=== PATIENT | male | born 1940 | race Caucasian/White ===

== ENCOUNTER → 2016-08-29 | Outpatient (CLI) | payer MEDICARE ==
[2016-08-29 08:15] LABS: ABSOLUTE EOSINOPHILS # (AUTO) 0.2 10^3/uL (0.0-0.6); ABSOLUTE LYMPHOCYTES (AUTO) 1.1 10^3/uL (0.5-4.7); ABSOLUTE MONOCYTES (AUTO) 0.5 10^3/uL (0.1-1.4); BASOPHILS % (AUTO) 0.5 % (0-2); EOSINOPHILS % (AUTO) 2.8 % (0-6); HEMATOCRIT 41.5 % (37.9-51.0); HEMOGLOBIN 14.1 g/dL (13.5-17.0); HGB HCT DIFFERENCE 0.8; LYMPHOCYTES % (AUTO) 16.3 % (13-45); MEAN CORPUSCULAR HEMOGLOBIN 31.8 pg (27.0-33.4); MEAN CORPUSCULAR VOLUME 94 fl (80-97); MONOCYTES % (AUTO) 7.6 % (3-13); RED BLOOD COUNT 4.43 10^6/uL (4.35-5.55); RED CELL DISTRIBUTION WIDTH 12.9 % (11.5-14.0); SEGMENTED NEUTROPHILS % (AUTO) 72.8 % (42-78); WHITE BLOOD COUNT 6.9 10^3/uL (4.0-10.5)
[2016-08-29 08:37] LABS: ALANINE AMINOTRANSFERASE 35 U/L (21-72); ALKALINE PHOSPHATASE 59 U/L (38-126); ANION GAP 8 (5-19); ASPARTATE AMINO TRANSFERASE 23 U/L (17-59); BILIRUBIN,DIRECT 0.2 mg/dL (0.0-0.4); BILIRUBIN,TOTAL 0.6 mg/dL (0.2-1.3); BLOOD UREA NITROGEN 22 mg/dL (7-20); CALCIUM 9.5 mg/dL (8.4-10.2); CARBON DIOXIDE 29 mmol/L (22-30); CHLORIDE 104 mmol/L (98-107); CHOLESTEROL 135.72 mg/dL (0-200); CREATININE RESULT 1.27 mg/dL (0.52-1.25); Direct HDL 29 mg/dL (>40); GLUCOSE 98 mg/dL (75-110); MAGNESIUM 2.1 mg/dL (1.6-2.3); POTASSIUM 4.8 mmol/L (3.6-5.0); SODIUM 141.1 mmol/L (137-145); TOTAL PROTEIN 6.4 g/dL (6.3-8.2); TRIGLYCERIDES 115 mg/dL (<150)
[2016-08-29 08:48] LABS: DIRECT LDL 83 mg/dL (<100)
== END ==
LOC: OD 07:05
PROVIDERS: ATTEND Family Medicine Geriatric Medicine
DX: E78.5 Hyperlipidemia, unspecified (principal); I10 Essential (primary) hypertension; I25.10 Atherosclerotic heart disease of native coronary artery without angina pectoris; E03.9 Hypothyroidism, unspecified; Z79.899 Other long term (current) drug therapy
CPT/HCPCS: 36415; 80053; 80061; 83735; 84153; 84443; 85025

== ENCOUNTER → 2016-12-31 | Outpatient (CLI) | payer MEDICARE ==
[2016-12-31 08:44] LABS: ABSOLUTE EOSINOPHILS # (AUTO) 0.2 10^3/uL (0.0-0.6); ABSOLUTE LYMPHOCYTES (AUTO) 1.3 10^3/uL (0.5-4.7); ABSOLUTE MONOCYTES (AUTO) 0.5 10^3/uL (0.1-1.4); BASOPHILS % (AUTO) 0.5 % (0-2); EOSINOPHILS % (AUTO) 3.2 % (0-6); HEMATOCRIT 41.3 % (37.9-51.0); HGB HCT DIFFERENCE 0.7; LYMPHOCYTES % (AUTO) 21.4 % (13-45); MEAN CORPUSCULAR HEMOGLOBIN 32.3 pg (27.0-33.4); MEAN CORPUSCULAR VOLUME 95 fl (80-97); RED BLOOD COUNT 4.35 10^6/uL (4.35-5.55); RED CELL DISTRIBUTION WIDTH 12.8 % (11.5-14.0); SEGMENTED NEUTROPHILS % (AUTO) 66.9 % (42-78)
== END ==
LOC: OD 07:23
PROVIDERS: ATTEND Family Medicine Geriatric Medicine
DX: D69.6 Thrombocytopenia, unspecified (principal); Z79.899 Other long term (current) drug therapy
CPT/HCPCS: 36415; 85025

== ENCOUNTER → 2017-04-24 | Outpatient (CLI) | payer MEDICARE ==
[2017-04-24 08:23] LABS: ABSOLUTE EOSINOPHILS # (AUTO) 0.2 10^3/uL (0.0-0.6); ABSOLUTE LYMPHOCYTES (AUTO) 1.3 10^3/uL (0.5-4.7); ABSOLUTE MONOCYTES (AUTO) 0.6 10^3/uL (0.1-1.4); ABSOLUTE NEUT (AUTO) 4.6 10^3/uL (1.7-8.2); BASOPHILS % (AUTO) 0.6 % (0-2); EOSINOPHILS % (AUTO) 2.7 % (0-6); HEMATOCRIT 42.6 % (37.9-51.0); HEMOGLOBIN 14.6 g/dL (13.5-17.0); LYMPHOCYTES % (AUTO) 19.7 % (13-45); MEAN CORPUSCULAR HEMOGLOBIN 31.9 pg (27.0-33.4); MEAN CORPUSCULAR HGB CONC 34.3 g/dL (32.0-36.0); MEAN CORPUSCULAR VOLUME 93 fl (80-97); MONOCYTES % (AUTO) 8.3 % (3-13); PLATELET COUNT 147 10^3/uL (150-450); RED BLOOD COUNT 4.58 10^6/uL (4.35-5.55); RED CELL DISTRIBUTION WIDTH 13.1 % (11.5-14.0); SEGMENTED NEUTROPHILS % (AUTO) 68.7 % (42-78); TOTAL CELLS COUNTED % (AUTO) 100 %; WHITE BLOOD COUNT 6.7 10^3/uL (4.0-10.5)
[2017-04-24 08:44] LABS: ALANINE AMINOTRANSFERASE 40 U/L (21-72); ALBUMIN 4.4 g/dL (3.5-5.0); ALKALINE PHOSPHATASE 60 U/L (38-126); ANION GAP 11 (5-19); ASPARTATE AMINO TRANSFERASE 26 U/L (17-59); BILIRUBIN,DIRECT 0.2 mg/dL (0.0-0.4); BILIRUBIN,TOTAL 0.6 mg/dL (0.2-1.3); BLOOD UREA NITROGEN 27 mg/dL (7-20); CALCIUM 10.1 mg/dL (8.4-10.2); CARBON DIOXIDE 29 mmol/L (22-30); CHLORIDE 103 mmol/L (98-107); CHOLESTEROL 155.91 mg/dL (0-200); GLUCOSE 98 mg/dL (75-110); MAGNESIUM 2.1 mg/dL (1.6-2.3); POTASSIUM 4.6 mmol/L (3.6-5.0); SODIUM 142.6 mmol/L (137-145); TRIGLYCERIDES 106 mg/dL (<150)
[2017-04-24 08:55] LABS: DIRECT LDL 105 mg/dL (<100)
== END ==
LOC: OD 07:39
PROVIDERS: ATTEND Family Medicine Geriatric Medicine
DX: E03.9 Hypothyroidism, unspecified (principal); E78.5 Hyperlipidemia, unspecified; Z79.899 Other long term (current) drug therapy
CPT/HCPCS: 36415; 80053; 80061; 83735; 84443; 85025

== ENCOUNTER → 2017-05-16 | Outpatient (CLI) | payer MEDICARE ==
--- NOTE | 2017-05-16 14:10 | RADIOLOGY REPORT (SQ) ---
EXAM DESCRIPTION: CHEST PA/LATERAL COMPLETED DATE/TIME: 05/16/2017 12:06 pm REASON FOR STUDY: COUGH COMPARISON: None. EXAM PARAMETERS: NUMBER OF VIEWS: two views TECHNIQUE: Digital Frontal and Lateral radiographic views of the chest acquired. RADIATION DOSE: NA LIMITATIONS: none FINDINGS: LUNGS AND PLEURA: No opacities, masses or pneumothorax. No pleural effusion. MEDIASTINUM AND HILAR STRUCTURES: No masses or contour abnormalities. HEART AND VASCULAR STRUCTURES: Heart normal size. No evidence for failure. BONES: No acute findings. HARDWARE: Sternotomy wires. Coronary bypass markers. OTHER: No other significant finding. IMPRESSION: NO SIGNIFICANT RADIOGRAPHIC FINDING IN THE CHEST. TECHNICAL DOCUMENTATION: JOB ID: [id number] [employer]- All Rights Reserved
== END ==
LOC: OD 11:47
PROVIDERS: ATTEND Family Medicine Geriatric Medicine
DX: R05 Cough (principal)
CPT/HCPCS: 71046

== ENCOUNTER → 2017-08-23 | Outpatient (CLI) | payer MEDICARE ==
[2017-08-23 09:02] LABS: ABSOLUTE EOSINOPHILS # (AUTO) 0.2 10^3/uL (0.0-0.6); ABSOLUTE LYMPHOCYTES (AUTO) 1.2 10^3/uL (0.5-4.7); ABSOLUTE MONOCYTES (AUTO) 0.5 10^3/uL (0.1-1.4); ABSOLUTE NEUT (AUTO) 3.6 10^3/uL (1.7-8.2); BASOPHILS % (AUTO) 0.6 % (0-2); EOSINOPHILS % (AUTO) 3.2 % (0-6); HEMATOCRIT 40.1 % (37.9-51.0); HEMOGLOBIN 13.8 g/dL (13.5-17.0); LYMPHOCYTES % (AUTO) 21.6 % (13-45); MEAN CORPUSCULAR HGB CONC 34.5 g/dL (32.0-36.0); MEAN CORPUSCULAR VOLUME 93 fl (80-97); MONOCYTES % (AUTO) 8.8 % (3-13); PLATELET COUNT 137 10^3/uL (150-450); RED BLOOD COUNT 4.33 10^6/uL (4.35-5.55); RED CELL DISTRIBUTION WIDTH 13.2 % (11.5-14.0); SEGMENTED NEUTROPHILS % (AUTO) 65.8 % (42-78); TOTAL CELLS COUNTED % (AUTO) 100 %; WHITE BLOOD COUNT 5.5 10^3/uL (4.0-10.5)
[2017-08-23 09:23] LABS: ALANINE AMINOTRANSFERASE 39 U/L (21-72); ASPARTATE AMINO TRANSFERASE 27 U/L (17-59); CHOLESTEROL 120.03 mg/dL (0-200); TRIGLYCERIDES 98 mg/dL (<150)
[2017-08-23 09:34] LABS: DIRECT LDL 78 mg/dL (<100)
== END ==
LOC: OD 07:30
PROVIDERS: ATTEND Family Medicine Geriatric Medicine
DX: I12.9 Hypertensive chronic kidney disease with stage 1 through stage 4 chronic kidney disease, or unspecified chronic kidney disease (principal); N18.3 Chronic kidney disease, stage 3 (moderate); E78.5 Hyperlipidemia, unspecified; Z79.899 Other long term (current) drug therapy
CPT/HCPCS: 36415; 80061; 82306; 84450; 84460; 85025

== ENCOUNTER → 2017-09-10 | Outpatient (CLI) | payer MEDICARE ==
--- NOTE | 2017-09-10 11:09 | RADIOLOGY REPORT (SQ) ---
EXAM DESCRIPTION: C SP 4 OR 5 VIEWS COMPLETED DATE/TIME: 09/10/2017 10:17 am REASON FOR STUDY: CERVICALGIA M54.2 CERVICALGIA COMPARISON: None. NUMBER OF VIEWS: Five views including obliques. TECHNIQUE: AP, lateral, obliques and odontoid radiographic images acquired of the cervical spine. LIMITATIONS: None. FINDINGS: MINERALIZATION: Normal. SEGMENTATION: Normal. ALIGNMENT: Normal. VERTEBRAE: Maintained height. No fracture or worrisome bone lesion. DISCS: Multilevel disc space narrowing with osteophytes. POSTERIOR ELEMENTS: Pedicles and facets are intact. No posterior arch defects. Facet arthropathy is present. FORAMINA: C5-6 and C6-7 foraminal encroachment on the left. C3-4 through C6-7 right foraminal encroa chment. HARDWARE: None in the spine. PARASPINAL SOFT TISSUES: Normal. OTHER: No other significant finding. IMPRESSION: SPONDYLOSIS WITHOUT BONE LESION OR FRACTURE. TECHNICAL DOCUMENTATION: JOB ID: [id number] [employer]- All Rights Reserved Reading location - IP/workstation name: [email or web address]
== END ==
LOC: OD 09:12
PROVIDERS: ATTEND Family Medicine
DX: M54.2 Cervicalgia (principal)
CPT/HCPCS: 72050

== ENCOUNTER 2017-09-25 08:44 | Day surgery (SDC) | payer MEDICARE ==
[~2017-09-25 08:44] MED LIST: DIPHENHYDRAMINE HCL 50 MG/ML VIAL ONE; EPINEPHRINE INJ 1 MG/10 ML DISP.SYRIN ONE; FENTANYL CITRATE INJ/PF 100 MCG/2 ML AMPUL ONE; FLUMAZENIL INJ 0.5 MG/5 ML VIAL ONE; GLUCAGON,HUMAN RECOMB 1 MG INJ ONE; NALOXONE HCL INJ/PF 0.4 MG/1 ML SDV ONE; ONDANSETRON HCL INJ/PF 4 MG/2 ML SDV ONE
[2017-09-25] MEDS: MIDAZOLAM 2 MG/2 ML INJ ONE ×3 (09:24→09:30)
--- NOTE | 2017-09-25 09:46 | Operative Report ---
Operative Report DATE OF SURGERY: 09/25/17 Operative Report: The risks, benefits and alternatives of the procedure including risks of bleeding, perforation requiring surgery are explained to the patient in detail and informed consent was obtained. Patient was taken back to the endoscopy suite and placed in the left, lateral decubital position. Timeout was called. Conscious sedation medications are provided. A rectal examination is done which did not reveal any masses, tears or fissures. An Olympus videoscope was inserted into the patient's rectum. It is carefully advanced all the way to the cecum. The cecum was identified by the usual anatomical landmarks including the ileocecal valve as well as the appendiceal office. Photodocumentation is obtained. The scope was then sequentially pulled back via the various segments of the colon including the ascending colon, hepatic flexure, transverse colon, splenic flexure, descending colon and finally to the rectosigmoid portions of the colon. Retroflexion maneuvers performed. PREOPERATIVE DIAGNOSIS: Personal history of polyps POSTOPERATIVE DIAGNOSIS: Diverticulosis. Internal hemorrhoids. Inflammation noted on the right side of the colon status post biopsy OPERATION: Colonoscopy with biopsy SURGEON: RONIT RODRIGUES ANESTHESIA: Moderate Sedation - 4 mg of Versed, 25 mcg of fentanyl. Conscious sedation monitoring time 30 minutes. TISSUE REMOVED OR ALTERED: As noted above COMPLICATIONS: None. ESTIMATED BLOOD LOSS: None. INTRAOPERATIVE FINDINGS: As noted above. PROCEDURE: Patient tolerated the procedure well. No immediate postprocedure complications are noted. Patient discharged in good condition. Discharge date 09/25/2017. Discharge diet: Regular. Discharge activity: Regular. 2-3 week follow-up to discuss findings. We will wait on pathology. 5 year surveillance colonoscopy.
[2017-09-25 11:04] VITALS: BP 113/63
== END 2017-09-25 10:45 | disposition home or self-care (01) ==
LOC: END 08:44
PROVIDERS: ATTEND Internal Medicine Gastroenterology
DX: Z12.11 Encounter for screening for malignant neoplasm of colon (principal); K57.30 Diverticulosis of large intestine without perforation or abscess without bleeding; K64.8 Other hemorrhoids; K52.9 Noninfective gastroenteritis and colitis, unspecified; E78.5 Hyperlipidemia, unspecified; I25.10 Atherosclerotic heart disease of native coronary artery without angina pectoris; E03.9 Hypothyroidism, unspecified; I12.9 Hypertensive chronic kidney disease with stage 1 through stage 4 chronic kidney disease, or unspecified chronic kidney disease; N18.3 Chronic kidney disease, stage 3 (moderate); M19.90 Unspecified osteoarthritis, unspecified site; Z79.82 Long term (current) use of aspirin; Z79.899 Other long term (current) drug therapy; Z88.0 Allergy status to penicillin; Z88.8 Allergy status to other drugs, medicaments and biological substances; Z86.010 Personal history of colon polyps
CPT/HCPCS: 45380; 88305 ×2; J2250; J3010; J0171; J1200; J1610; J2310; J2405; J3490

== ENCOUNTER → 2017-11-18 | Outpatient (CLI) | payer MEDICARE ==
[2017-11-18 08:50] LABS: ANION GAP 10 (5-19); BLOOD UREA NITROGEN 27 mg/dL (7-20); CALCIUM 9.1 mg/dL (8.4-10.2); CARBON DIOXIDE 26 mmol/L (22-30); CHLORIDE 107 mmol/L (98-107); GLUCOSE 94 mg/dL (75-110); POTASSIUM 4.3 mmol/L (3.6-5.0); SODIUM 143.4 mmol/L (137-145)
== END ==
LOC: OD 07:21
PROVIDERS: ATTEND Family Medicine Geriatric Medicine
DX: E03.9 Hypothyroidism, unspecified (principal)
CPT/HCPCS: 36415; 80048; 83735; 84443

== ENCOUNTER → 2018-03-26 | Outpatient (CLI) | payer MEDICARE ==
[2018-03-26 08:50] LABS: ABSOLUTE BASOPHILS # (AUTO) 0.1 10^3/uL (0.0-0.2); ABSOLUTE EOSINOPHILS # (AUTO) 0.2 10^3/uL (0.0-0.6); ABSOLUTE LYMPHOCYTES (AUTO) 1.3 10^3/uL (0.5-4.7); ABSOLUTE MONOCYTES (AUTO) 0.7 10^3/uL (0.1-1.4); ABSOLUTE NEUT (AUTO) 4.5 10^3/uL (1.7-8.2); BASOPHILS % (AUTO) 0.8 % (0-2); EOSINOPHILS % (AUTO) 2.9 % (0-6); HEMATOCRIT 40.4 % (37.9-51.0); HEMOGLOBIN 14.4 g/dL (13.5-17.0); LYMPHOCYTES % (AUTO) 18.9 % (13-45); MEAN CORPUSCULAR HEMOGLOBIN 33.3 pg (27.0-33.4); MEAN CORPUSCULAR HGB CONC 35.6 g/dL (32.0-36.0); MEAN CORPUSCULAR VOLUME 93 fl (80-97); PLATELET COUNT 156 10^3/uL (150-450); RED BLOOD COUNT 4.33 10^6/uL (4.35-5.55); SEGMENTED NEUTROPHILS % (AUTO) 67.4 % (42-78); TOTAL CELLS COUNTED % (AUTO) 100 %; WHITE BLOOD COUNT 6.6 10^3/uL (4.0-10.5)
[2018-03-26 09:16] LABS: ALANINE AMINOTRANSFERASE 33 U/L (21-72); ANION GAP 11 (5-19); BLOOD UREA NITROGEN 26 mg/dL (7-20); CALCIUM 9.3 mg/dL (8.4-10.2); CARBON DIOXIDE 29 mmol/L (22-30); CHLORIDE 104 mmol/L (98-107); CHOLESTEROL 115.53 mg/dL (0-200); GLUCOSE 102 mg/dL (75-110); POTASSIUM 4.5 mmol/L (3.6-5.0); SODIUM 143.9 mmol/L (137-145); TRIGLYCERIDES 226 mg/dL (<150)
[2018-03-26 09:17] LABS: ALANINE AMINOTRANSFERASE 34 U/L (21-72); ALBUMIN 3.9 g/dL (3.5-5.0); ALKALINE PHOSPHATASE 82 U/L (38-126); ASPARTATE AMINO TRANSFERASE 30 U/L (17-59); BILIRUBIN,DIRECT 0.3 mg/dL (0.0-0.4); BILIRUBIN,TOTAL 0.6 mg/dL (0.2-1.3); TOTAL PROTEIN 6.6 g/dL (6.3-8.2)
[2018-03-26 09:31] LABS: DIRECT LDL 83 mg/dL (<100)
[2018-03-26 09:33] LABS: VLDL CHOLESTEROL 45.2 mg/dL (10-31)
== END ==
LOC: OD 07:06
PROVIDERS: ATTEND Family Medicine Geriatric Medicine
DX: E78.5 Hyperlipidemia, unspecified (principal); E03.9 Hypothyroidism, unspecified; Z79.899 Other long term (current) drug therapy
CPT/HCPCS: 36415; 80048; 80061; 80076; 82306; 84443; 84460; 85025

== ENCOUNTER → 2018-06-12 | Outpatient (CLI) | payer MEDICARE ==
[2018-06-12 08:29] LABS: ABSOLUTE EOSINOPHILS # (AUTO) 0.2 10^3/uL (0.0-0.6); ABSOLUTE LYMPHOCYTES (AUTO) 1.3 10^3/uL (0.5-4.7); ABSOLUTE MONOCYTES (AUTO) 0.5 10^3/uL (0.1-1.4); ABSOLUTE NEUT (AUTO) 3.6 10^3/uL (1.7-8.2); BASOPHILS % (AUTO) 0.6 % (0-2); EOSINOPHILS % (AUTO) 3.7 % (0-6); HEMATOCRIT 41.6 % (37.9-51.0); HEMOGLOBIN 14.3 g/dL (13.5-17.0); MEAN CORPUSCULAR HEMOGLOBIN 31.8 pg (27.0-33.4); MEAN CORPUSCULAR HGB CONC 34.3 g/dL (32.0-36.0); MEAN CORPUSCULAR VOLUME 93 fl (80-97); MONOCYTES % (AUTO) 8.9 % (3-13); PLATELET COUNT 139 10^3/uL (150-450); RED BLOOD COUNT 4.49 10^6/uL (4.35-5.55); RED CELL DISTRIBUTION WIDTH 13.2 % (11.5-14.0); SEGMENTED NEUTROPHILS % (AUTO) 63.8 % (42-78); TOTAL CELLS COUNTED % (AUTO) 100 %; WHITE BLOOD COUNT 5.7 10^3/uL (4.0-10.5)
[2018-06-12 08:55] LABS: ALANINE AMINOTRANSFERASE 33 U/L (21-72); CHOLESTEROL 118.83 mg/dL (0-200); TRIGLYCERIDES 144 mg/dL (<150)
[2018-06-12 09:12] LABS: DIRECT LDL 76 mg/dL (<100)
== END ==
LOC: OD 07:48
PROVIDERS: ATTEND Family Medicine Geriatric Medicine
DX: E78.5 Hyperlipidemia, unspecified (principal); I10 Essential (primary) hypertension; Z79.899 Other long term (current) drug therapy
CPT/HCPCS: 36415; 80061; 84460; 85025

== ENCOUNTER → 2018-09-17 | Outpatient (CLI) | payer MEDICARE ==
[2018-09-17 08:11] LABS: ABSOLUTE EOSINOPHILS # (AUTO) 0.2 10^3/uL (0.0-0.6); ABSOLUTE LYMPHOCYTES (AUTO) 1.3 10^3/uL (0.5-4.7); ABSOLUTE MONOCYTES (AUTO) 0.5 10^3/uL (0.1-1.4); ABSOLUTE NEUT (AUTO) 4.2 10^3/uL (1.7-8.2); BASOPHILS % (AUTO) 0.5 % (0-2); EOSINOPHILS % (AUTO) 3.5 % (0-6); HEMATOCRIT 40.3 % (37.9-51.0); HEMOGLOBIN 13.7 g/dL (13.5-17.0); LYMPHOCYTES % (AUTO) 20.3 % (13-45); MEAN CORPUSCULAR HEMOGLOBIN 31.5 pg (27.0-33.4); MEAN CORPUSCULAR VOLUME 93 fl (80-97); PLATELET COUNT 144 10^3/uL (150-450); RED BLOOD COUNT 4.36 10^6/uL (4.35-5.55); RED CELL DISTRIBUTION WIDTH 13.3 % (11.5-14.0); SEGMENTED NEUTROPHILS % (AUTO) 67.7 % (42-78); TOTAL CELLS COUNTED % (AUTO) 100 %; WHITE BLOOD COUNT 6.2 10^3/uL (4.0-10.5)
[2018-09-17 08:28] LABS: ANION GAP 10 (5-19); BLOOD UREA NITROGEN 24 mg/dL (7-20); CALCIUM 9.5 mg/dL (8.4-10.2); CARBON DIOXIDE 25 mmol/L (22-30); CHLORIDE 107 mmol/L (98-107); GLUCOSE 106 mg/dL (75-110); POTASSIUM 4.4 mmol/L (3.6-5.0); SODIUM 141.9 mmol/L (137-145)
== END ==
LOC: OD 07:15
PROVIDERS: ATTEND Family Medicine Geriatric Medicine
DX: I12.9 Hypertensive chronic kidney disease with stage 1 through stage 4 chronic kidney disease, or unspecified chronic kidney disease (principal); N18.3 Chronic kidney disease, stage 3 (moderate); I25.10 Atherosclerotic heart disease of native coronary artery without angina pectoris; E78.5 Hyperlipidemia, unspecified; E03.9 Hypothyroidism, unspecified; K63.5 Polyp of colon; D69.6 Thrombocytopenia, unspecified; J30.9 Allergic rhinitis, unspecified; Z29.9 Encounter for prophylactic measures, unspecified
CPT/HCPCS: 36415; 80048; 84443; 85025

== ENCOUNTER 2018-10-17 09:36 | Inpatient (IN) | payer MEDICARE ==
[2018-10-17] MEDS ORDERED: NORMAL SALINE 1000 ML 1,000 ML IV ONE (09:46)
[2018-10-17] MEDS ORDERED: ONDANSETRON HCL INJ/PF 4 MG/2 ML SDV IV ONE (09:47)
--- NOTE | 2018-10-17 09:50 | ER Document Report ---
ED Medical Screen (RME) - General Chief Complaint: Loose Stools Stated Complaint: LOOSE STOOL Time Seen by Provider: 10/17/18 09:46 Primary Care Provider: MIKAELA ARRIOLA MD [Primary Care Provider] - Follow up as needed Mode of Arrival: Wheelchair Information source: Office Notes: 78-year-old male presented to ED for left lower quadrant abdominal pain nausea vomiting and rectal bleeding. was concerned that the patient may have diverticulitis. She recommended labs IVs and CAT scan to rule out diverticulitis. These have been ordered. I have greeted and performed a rapid initial assessment of this patient. A comprehensive ED assessment and evaluation of the patient, analysis of test results and completion of medical decision making process will be conducted by an additional ED providers. Dictation of this chart was performed using voice recognition software; therefore, there may be some unintended grammatical errors. TRAVEL OUTSIDE OF THE [place] IN LAST 30 DAYS: No - Related Data Allergies/Adverse Reactions: Penicillins Allergy (Intermediate, Verified 10/17/18 09:38) Edema aspirin [Aspirin] Adverse Reaction (Mild, Verified 10/17/18 09:38) "UPSET STOMACH" WITH NONENTERIC COATED Past Medical History - Past Medical History Cardiac Medical History: Reports: Hx Coronary Artery Disease - HIGH CHOL, Hx Heart Attack - [place] 25Years Ago, Hx Hypertension Pulmonary Medical History: Denies: Hx Asthma, Hx Bronchitis, Hx COPD, Hx Pneumonia Neurological Medical History: Denies: Hx Cerebrovascular Accident, Hx Seizures Musculoskeltal Medical History: Reports Hx Arthritis Past Surgical History: Denies: Hx Pacemaker - Immunizations Hx Diphtheria, Pertussis, Tetanus Vaccination: Yes Physical Exam - Vital signs Vitals: Temp Pulse Resp BP Pulse Ox 98.0 F 71 16 149/68 H 98 10/17/18 09:44 10/17/18 09:44 10/17/18 09:44 10/17/18 09:44 10/17/18 09:44 Course - Vital Signs Vital signs: Temp Pulse Resp BP Pulse Ox 98.0 F 71 16 149/68 H 98 10/17/18 09:44 10/17/18 09:44 10/17/18 09:44 10/17/18 09:44 10/17/18 09:44 Doctor's Discharge - Discharge Referrals: MIKAELA ARRIOLA MD [Primary Care Provider] - Follow up as needed
[2018-10-17 10:29] LABS: ABSOLUTE MONOCYTES (AUTO) 0.8 10^3/uL (0.1-1.4); ABSOLUTE NEUT (AUTO) 10.3 10^3/uL (1.7-8.2); BASOPHILS % (AUTO) 0.2 % (0-2); EOSINOPHILS % (AUTO) 0.4 % (0-6); HEMATOCRIT 41.2 % (37.9-51.0); HEMOGLOBIN 14.2 g/dL (13.5-17.0); LYMPHOCYTES % (AUTO) 8.1 % (13-45); MEAN CORPUSCULAR HEMOGLOBIN 31.6 pg (27.0-33.4); MEAN CORPUSCULAR HGB CONC 34.5 g/dL (32.0-36.0); MEAN CORPUSCULAR VOLUME 92 fl (80-97); MONOCYTES % (AUTO) 6.4 % (3-13); PLATELET COUNT 141 10^3/uL (150-450); RED CELL DISTRIBUTION WIDTH 13.2 % (11.5-14.0); SEGMENTED NEUTROPHILS % (AUTO) 84.9 % (42-78); TOTAL CELLS COUNTED % (AUTO) 100 %; WHITE BLOOD COUNT 12.1 10^3/uL (4.0-10.5)
[2018-10-17 10:43] LABS: ALANINE AMINOTRANSFERASE 30 U/L (21-72); ALBUMIN 4.2 g/dL (3.5-5.0); ALKALINE PHOSPHATASE 95 U/L (38-126); ANION GAP 9 (5-19); ASPARTATE AMINO TRANSFERASE 21 U/L (17-59); BILIRUBIN,DIRECT 0.2 mg/dL (0.0-0.4); BILIRUBIN,TOTAL 1.3 mg/dL (0.2-1.3); BLOOD UREA NITROGEN 23 mg/dL (7-20); CALCIUM 9.6 mg/dL (8.4-10.2); CARBON DIOXIDE 25 mmol/L (22-30); CHLORIDE 103 mmol/L (98-107); GLUCOSE 118 mg/dL (75-110); POTASSIUM 4.2 mmol/L (3.6-5.0); SODIUM 137.3 mmol/L (137-145)
[2018-10-17 11:04] LABS: APPEARANCE,URINE CLEAR; BILIRUBIN,URINE NEGATIVE (NEGATIVE); COLOR,URINE YELLOW; GLUCOSE, URINE NEGATIVE (NEGATIVE); KETONES,URINE NEGATIVE (NEGATIVE); LEUKOCYTE ESTERASE,URINE NEGATIVE (NEGATIVE); NITRITE,URINE NEGATIVE (NEGATIVE); PROTEIN,URINE NEGATIVE (NEGATIVE); UROBILINOGEN,URINE NEGATIVE mg/dL (<2.0)
--- NOTE | 2018-10-17 11:18 | ER Document Report ---
ED GI/ - General Chief Complaint: Loose Stools Stated Complaint: LOOSE STOOL Time Seen by Provider: 10/17/18 09:46 Primary Care Provider: MIKAELA ARRIOLA MD [Primary Care Provider] - Follow up as needed Mode of Arrival: Wheelchair TRAVEL OUTSIDE OF THE [place] IN LAST 30 DAYS: No - HPI Patient complains to provider of: Abdominal pain, Diarrhea - Pt. with 2-3 day h/o L-sided abd pain and diarrhea. He has had some occasional blood mixed in with the diarrhea. Sarah Beth Singh V. Saw his PCP today and was told to go to ED to r/o diverticulitis. - Related Data Allergies/Adverse Reactions: Penicillins Allergy (Intermediate, Verified 10/17/18 09:38) Edema aspirin [Aspirin] Adverse Reaction (Mild, Verified 10/17/18 09:38) "UPSET STOMACH" WITH NONENTERIC COATED Past Medical History - General Information source: Patient, Relative, DrJudi Office - Social History Smoking Status: Never Smoker Chew tobacco use (# tins/day): No Frequency of alcohol use: None Drug Abuse: None Family History: None Patient has suicidal ideation: No Patient has homicidal ideation: No - Past Medical History Cardiac Medical History: Reports: Hx Coronary Artery Disease - HIGH CHOL, Hx Heart Attack - [place] 25Years Ago, Hx Hypertension Pulmonary Medical History: Denies: Hx Asthma, Hx Bronchitis, Hx COPD, Hx Pneumonia Neurological Medical History: Denies: Hx Cerebrovascular Accident, Hx Seizures Renal/ Medical History: Denies: Hx Peritoneal Dialysis Musculoskeletal Medical History: Reports Hx Arthritis Past Surgical History: Reports: Hx Cardiac Catheterization, Hx Cardiac Surgery. Denies: Hx Pacemaker - Immunizations Hx Diphtheria, Pertussis, Tetanus Vaccination: Yes Review of Systems - Review of Systems Constitutional: No symptoms reported EENT: No symptoms reported Cardiovascular: No symptoms reported Respiratory: No symptoms reported Gastrointestinal: See HPI, Abdominal pain, Diarrhea, Rectal bleeding Genitourinary: No symptoms reported Musculoskeletal: No symptoms reported Skin: No symptoms reported Hematologic/Lymphatic: No symptoms reported Neurological/Psychological: No symptoms reported -: Yes All other systems reviewed and negative Physical Exam - Vital signs Vitals: Temp Pulse Resp BP Pulse Ox 98.0 F 71 16 149/68 H 98 10/17/18 09:44 10/17/18 09:44 10/17/18 09:44 10/17/18 09:44 10/17/18 09:44 - General General appearance: Appears well In distress: None - HEENT Mucous membranes: Normal Pharynx: Normal Neck: Normal - Respiratory Respiratory status: No respiratory distress Breath sounds: Normal - Cardiovascular Rhythm: Regular Heart sounds: Normal auscultation - Abdominal Inspection: Normal Distension: No distension Bowel sounds: Normal Tenderness: Tender - there is minimal TTP of the LLQ diffusely without peritoneal signs. BS normal - Rectal Tenderness: No Stool: Heme positive. No: Black, Bloody Hemorrhoids: External - Extremities General upper extremity: Normal inspection General lower extremity: Normal inspection Course - Re-evaluation Re-evalutation: 10/17/18 13:54 pt felt better after pain meds. He is will to stay in the hospital. I will call hospitalist for admission. - Vital Signs Vital signs: Temp Pulse Resp BP Pulse Ox 98.0 F 71 10 L 150/80 H 98 10/17/18 09:44 10/17/18 09:44 10/17/18 12:01 10/17/18 12:01 10/17/18 12:01 - Laboratory Result Diagrams: 10/17/18 10:09 10/17/18 10:09 Laboratory results interpreted by me: 10/17/18 10/17/18 10:09 10:09 WBC 12.1 H Plt Count 141 L Seg Neutrophils % 84.9 H Lymphocytes % 8.1 L Absolute Neutrophils 10.3 H BUN 23 H Est GFR (Non-Af Amer) 56 L Glucose 118 H - Diagnostic Test Radiology reviewed: Reports reviewed - diverticulosis/diverticulitis and solid kidney mass - possible malignancy - Consults ludwig Ballesteros Time consulted: 13:56 - he will see pt. in ED Reason for consultation: 10/17/18 13:56 admission for diverticulitis Consulted provider: will come to ER Critical Care Note - Critical Care Note Total time excluding time spent on procedures (mins): 30 Discharge - Discharge Clinical Impression: Diverticulitis, Kidney mass Condition: Stable Disposition: ADMITTED OBSERVATION Admitting Provider: Favian (Hospitalist) Unit Admitted: Medical Floor Referrals: MIKAELA ARRIOLA MD [Primary Care Provider] - Follow up as needed
[2018-10-17] MEDS ORDERED: MORPHINE SULFATE 10 MG/ML INJ IV ONE (11:44)
--- NOTE | 2018-10-17 13:20 | RADIOLOGY REPORT (SQ) ---
EXAM DESCRIPTION: CT ABD/PELVIS WITH IV ORAL COMPLETED DATE/TIME: 10/17/2018 12:58 pm REASON FOR STUDY: Lower left abdominal pain nausea vomiting chills COMPARISON: 04/21/2014. TECHNIQUE: CT scan of the abdomen and pelvis performed using helical scanning technique with dynamic intravenous contrast injection. No oral contrast. Images reviewed with lung, soft tissue, and bone windows. Reconstructed coronal and sagittal MPR images reviewed. Delayed images for evaluation of the urinary system also acquired. All images stored on PACS. All CT scanners at this facility use dose modulation, iterative reconstruction, and/or weight based d osing when appropriate to reduce radiation dose to as low as reasonably achievable (ALARA). [facility]: Dose Right [facility]: CareDose [facility]: Dose Right [facility]: Teradose 4D [facility]: MicroEnsure CONTRAST TYPE AND DOSE: contrast/concentration: Isovue 350.00 mg/ml; Total Contrast Delivered: 93.0 ml; Total Saline Delivered: 71.0 ml RENAL FUNCTION: BUN 23 creatinine 1.25. RADIATION DOSE: CT Rad equipment meets quality standard of care and radiation dose reduction techniq ues were employed. CTDIvol: 7.8 - 10.9 mGy. DLP: 982 mGy-cm.. LIMITATIONS: None. FINDINGS: LOWER CHEST: No significant findings. No nodules or infiltrates. LIVER: Normal size. No masses. No dilated ducts. SPLEEN: Normal size. No focal lesions. PANCREAS: No masses. No significant calcifications. No adjacent inflammation or peripancreatic fluid collections. Pancreatic duct not dilated. GALLBLADDER: No identified stones by CT criteria. No inflammatory changes to suggest cholecystitis. ADRENAL GLANDS: No significant masses or asymmetry. RIGHT KIDNEY AND URETER: No solid masses. No significant calcifications. No hydronephrosis or hyd roureter. LEFT KIDNEY AND URETER: Small cortical cysts. 2.0 x 2.5 cm solid mass in the upper pole with periphe ral enhancement. Best visualized on axial series 3, image 32 and coronal series 601, image 45. No significant calcifications. No hydronephrosis or hydroureter. AORTA AND VESSELS: No aneurysm. No dissection. Renal arteries, SMA, celiac without stenosis. RETROPERITONEUM: No retroperitoneal adenopathy, hemorrhage or masses. BOWEL AND PERITONEAL CAVITY: Numerous colonic diverticuli. Mild inflammatory changes along the desce nding colon. No abnormal fluid collection or extraluminal gas. No free fluid or peritoneal masses. APPENDIX: Normal. PELVIS: No mass. No free fluid. Normal bladder. ABDOMINAL WALL: No masses. No hernias. BONES: No significant or acute findings. OTHER: No other significant finding. IMPRESSION: 1. EXTENSIVE DIVERTICULOSIS OF THE DESCENDING AND SIGMOID COLON. MILD INFLAMMATORY CHANGES ALONG THE DESCENDING COLON CONSISTENT WITH DIVERTICULITIS. NO EVIDENCE OF PERFORATION OR ABSCESS. 2. 2.0 X 2.5 CM SOLID MASS IN THE UPPER POLE OF THE LEFT KIDNEY HIGHLY SUSPICIOUS FOR MALIGNANCY. 3. NO OTHER SIGNIFICANT OR ACUTE FINDING IN THE ABDOMEN OR PELVIS ON CT SCAN WITH IV CONTRAST. TECHNICAL DOCUMENTATION: JOB ID: [id number] Quality ID # [id number]: Final reports with documentation of one or more dose reduction techniques (e.g., Au tomated exposure control, adjustment of the mA and/or kV according to patient size, use of iterative reconstruction technique) 2010 [employer]- All Rights Reserved Reading location - IP/workstation name: [email or web address]
[2018-10-17] MEDS ORDERED: TEMAZEPAM 7.5 MG CAPSULE PO PRN (14:35)
[2018-10-17] MEDS ORDERED: PROMETHAZINE HCL INJ 25 MG/1 ML VIAL IV PRN (14:35)
[2018-10-17] MEDS ORDERED: ACETAMINOPHEN 325 MG TABLET PO PRN (14:35)
[2018-10-17] MEDS ORDERED: ONDANSETRON HCL INJ/PF 4 MG/2 ML SDV IV PRN (14:35)
[2018-10-17] MEDS ORDERED: OXYCODONE-ACETAMINOPHEN 5-325 MG TABLET PO PRN (14:35)
[2018-10-17] MEDS ORDERED: IPRATROPIUM/ALBUTEROL 0.5-2.5 MG/3 ML AMPUL NEB PRN (14:35)
[2018-10-17] MEDS: LEVOFLOXACIN 500 MG/D5W RTU 500 MG/100 ML RTUPB IV SCH (15:23)
[2018-10-17] MEDS: NORMAL SALINE 1000 ML 1,000 ML IV PRN (16:14)
[2018-10-17] MEDS: METRONIDAZOLE 500 MG/NS RTU 500 MG/100 ML RTUPB IV SCH ×2 (16:59→17:06)
[2018-10-17] MEDS: PANTOPRAZOLE SODIUM 40 MG TABLET.DR PO SCH (17:06)
--- NOTE | 2018-10-17 18:01 | PDOC H&P ---
History of Present Illness Admission Date/PCP: 10/17/18 14:23 MIKAELA ARRIOLA MD History of Present Illness: SHERI ROSS is a 78 year old male past medical history of hypertension CAD s tatus post CABG, dyslipidemia, external hemorrhoids, tenting to ED complaining of left lower quadrant abdominal pain x4 days treated with diarrhea. Abdominal pain is in the left lower quadrant, colicky, 3/5 intensity, worse with eating, relieved with BMs. Denies any fever, chills, chest pain, weight changes, hematuria, or any urinary symptoms. CT abdomen and ED showed extensive diverticulosis of the descending and sigmoid colon. Mild inflammatory changes along the descending colon consistent with diverticulitis. Past Medical History Cardiac Medical History: Reports: Coronary Artery Disease - HIGH CHOL, Myocardial Infarction - [place] 25Years Ago, Hypertension Pulmonary Medical History: Denies: Asthma, Bronchitis, Chronic Obstructive Pulmonary Disease (COPD), Pneumonia Neurological Medical History: Denies: Seizures Musculoskeltal Medical History: Reports: Arthritis Hematology: Denies: Anemia Past Surgical History Past Surgical History: Reports: Cardiac Catheterization Denies: Pacemaker Social History Smoking Status: Never Smoker Frequency of Alcohol Use: None Hx Recreational Drug Use: No Drugs: None Hx Prescription Drug Abuse: No Family History Family History: None Parental Family History Reviewed: Yes Children Family History Reviewed: Yes Sibling(s) Family History Reviewed.: Yes Medication/Allergy Home Medications: Atorvastatin Calcium [Lipitor 40 mg Tablet] 40 mg PO QHS 10/17/18 Levothyroxine Sodium 75 mcg PO Q6AM 10/17/18 Lisinopril 20 mg PO DAILY 10/17/18 Ranitidine HCl [Zantac] 300 mg PO DAILY 10/17/18 Tamsulosin HCl [Flomax] 0.8 mg PO QHS 10/17/18 Allergies/Adverse Reactions: Penicillins Allergy (Intermediate, Verified 10/17/18 09:38) Edema aspirin [Aspirin] Adverse Reaction (Mild, Verified 10/17/18 09:38) "UPSET STOMACH" WITH NONENTERIC COATED Review of Systems Constitutional: ABSENT: chills, fever(s), headache(s), weight gain, weight loss Cardiovascular: ABSENT: chest pain, dyspnea on exertion, edema, orthropnea, palpitations Respiratory: ABSENT: cough, hemoptysis Gastrointestinal: PRESENT: abdominal pain, diarrhea, nausea Genitourinary: ABSENT: dysuria, hematuria Musculoskeletal: ABSENT: joint swelling Neurological: ABSENT: abnormal gait, abnormal speech, confusion, dizziness, focal weakness, syncope Physical Exam Vital Signs: Temp Pulse Resp BP Pulse Ox 97.6 F 55 L 16 134/71 H 99 10/17/18 16:42 10/17/18 16:42 10/17/18 16:42 10/17/18 16:42 10/17/18 16:42 Intake & Output 10/16/18 10/17/18 10/18/18 06:59 06:59 06:59 Intake Total 1143 Balance 1143 Weight 80.739 kg General appearance: PRESENT: no acute distress, well-developed, well-nourished Head exam: PRESENT: atraumatic, normocephalic Respiratory exam: PRESENT: clear to auscultation autumn. ABSENT: rales, rhonchi, wheezes Cardiovascular exam: PRESENT: RRR. ABSENT: diastolic murmur, rubs, systolic murmur GI/Abdominal exam: PRESENT: guarding, normal bowel sounds, tenderness - LLQ. ABSENT: distended, mass, organolmegaly, rebound Neurological exam: PRESENT: alert, awake, oriented to person, oriented to place, oriented to time, oriented to situation, CN II-XII grossly intact. ABSENT: motor sensory deficit Results Laboratory Results: 10/17/18 10:09 10/17/18 10:09 10/17/18 10/17/18 10/17/18 10:09 10:09 10:09 WBC 12.1 H RBC 4.50 Hgb 14.2 Hct 41.2 MCV 92 MCH 31.6 MCHC 34.5 RDW 13.2 Plt Count 141 L Seg Neutrophils % 84.9 H Lymphocytes % 8.1 L Monocytes % 6.4 Eosinophils % 0.4 Basophils % 0.2 Absolute Neutrophils 10.3 H Absolute Lymphocytes 1.0 Absolute Monocytes 0.8 Absolute Eosinophils 0.0 Absolute Basophils 0.0 Sodium 137.3 Potassium 4.2 Chloride 103 Carbon Dioxide 25 Anion Gap 9 BUN 23 H Creatinine 1.25 Est GFR ( Amer) > 60 Est GFR (Non-Af Amer) 56 L Glucose 118 H Calcium 9.6 Total Bilirubin 1.3 AST 21 ALT 30 Alkaline Phosphatase 95 Total Protein 7.0 Albumin 4.2 Urine Color Urine Appearance Urine pH Ur Specific Crawford Urine Protein Urine Glucose (UA) Urine Ketones Urine Blood Urine Nitrite Ur Leukocyte Esterase Urine WBC (Auto) Urine RBC (Auto) Blood Type A NEGATIVE Antibody Screen NEGATIVE 10/17/18 10:40 WBC RBC Hgb Hct MCV MCH MCHC RDW Plt Count Seg Neutrophils % Lymphocytes % Monocytes % Eosinophils % Basophils % Absolute Neutrophils Absolute Lymphocytes Absolute Monocytes Absolute Eosinophils Absolute Basophils Sodium Potassium Chloride Carbon Dioxide Anion Gap BUN Creatinine Est GFR ( Amer) Est GFR (Non-Af Amer) Glucose Calcium Total Bilirubin AST ALT Alkaline Phosphatase Total Protein Albumin Urine Color YELLOW Urine Appearance CLEAR Urine pH 5.0 Ur Specific Crawford 1.020 Urine Protein NEGATIVE Urine Glucose (UA) NEGATIVE Urine Ketones NEGATIVE Urine Blood NEGATIVE Urine Nitrite NEGATIVE Ur Leukocyte Esterase NEGATIVE Urine WBC (Auto) 1 Urine RBC (Auto) 1 Blood Type Antibody Screen Impressions: Abdomen/Pelvis CT 10/17/18 00:00 IMPRESSION: 1. EXTENSIVE DIVERTICULOSIS OF THE DESCENDING AND SIGMOID COLON. MILD INFLAMMATORY CHANGES ALONG THE DESCENDING COLON CONSISTENT WITH DIVERTICULITIS. NO EVIDENCE OF PERFORATION OR ABSCESS. 2. 2.0 X 2.5 CM SOLID MASS IN THE UPPER POLE OF THE LEFT KIDNEY HIGHLY SUSPICIOUS FOR MALIGNANCY. 3. NO OTHER SIGNIFICANT OR ACUTE FINDING IN THE ABDOMEN OR PELVIS ON CT SCAN WITH IV CONTRAST. Assessment and Plan - Diagnosis (1) Acute diverticulitis Is this a current diagnosis for this admission?: Yes Plan: Empiric IV antibiotics, volume resuscitation guided by volume status, monitor electrolytes and replace as needed. Blood, stool culture. 10/17/2018 CT abdomen. Extensive diverticulosis of the descending and sigmoid colon. Mild inflammatory changes along the descending colon consistent with diverticu litis. (2) Hypertension Is this a current diagnosis for this admission?: Yes Plan: Euvolemic. Normotensive. Restart home meds. PRN hydralazine. Adjust meds as needed. Outpatient PCP follow-up. (3) Dyslipidemia Is this a current diagnosis for this admission?: Yes Plan: Diet and lifestyle modification. Restart statins. (4) CAD (coronary artery disease) Qualifiers: Coronary Disease-Associated Artery/Lesion type: bypass graft, autologous artery Is this a current diagnosis for this admission?: Yes Plan: History of CABG. Denies any anginal symptoms. Continue antiplatelets, beta-blockers, MARK ANTHONY, statins. (5) Kidney mass Is this a current diagnosis for this admission?: Yes Plan: Incidental finding. Denies any history of malignancy. Denies any weight changes or hematuria. 10/17/2018. 2.2 x 2.5 cm solid mass in the upper pole of the left kidney highly suspicious for malignancy. Unfortunately no urology consult available at [facility]. Arrange for patient to see urologist as outpatient upon discharge. (6) External hemorrhoids Is this a current diagnosis for this admission?: Yes Plan: Worsened by recent diarrhea caused by acute diverticulitis. Outpatient surgery follow-up. Monitor H&H. Supportive measures. (7) BPH (benign prostatic hyperplasia) Qualifiers: Lower urinary tract symptom presence: symptoms absent Qualified Code(s): N40.0 - Benign prostatic hyperplasia without lower urinary tract symptoms Is this a current diagnosis for this admission?: Yes Plan: Restart tamsulosin. (8) Hypothyroidism Is this a current diagnosis for this admission?: Yes Plan: Restart levothyroxine.
[2018-10-17] MEDS: LISINOPRIL 10 MG TABLET PO SCH (19:43)
[2018-10-17] MEDS: ATORVASTATIN CALCIUM 40 MG TABLET PO SCH (22:08)
[2018-10-17] MEDS: TAMSULOSIN HCL 0.4 MG CAP.SR.24H PO SCH (22:08)
[2018-10-18] MEDS: METRONIDAZOLE 500 MG/NS RTU 500 MG/100 ML RTUPB IV SCH ×5 (00:09→23:02)
[2018-10-18] MEDS: LEVOTHYROXINE SODIUM 0.075 MG TABLET PO SCH (05:12)
[2018-10-18] MEDS: PANTOPRAZOLE SODIUM 40 MG TABLET.DR PO SCH ×2 (05:12→18:25)
[2018-10-18 05:57] LABS: HEMOGLOBIN 13.1 g/dL (13.5-17.0); MEAN CORPUSCULAR HEMOGLOBIN 31.7 pg (27.0-33.4); MEAN CORPUSCULAR HGB CONC 34.6 g/dL (32.0-36.0); MEAN CORPUSCULAR VOLUME 92 fl (80-97); PLATELET COUNT 127 10^3/uL (150-450); RED BLOOD COUNT 4.15 10^6/uL (4.35-5.55)
[2018-10-18 06:13] LABS: ANION GAP 5 (5-19); BLOOD UREA NITROGEN 20 mg/dL (7-20); CALCIUM 8.7 mg/dL (8.4-10.2); CARBON DIOXIDE 24 mmol/L (22-30); CHLORIDE 107 mmol/L (98-107); GLUCOSE 98 mg/dL (75-110); POTASSIUM 4.2 mmol/L (3.6-5.0); SODIUM 136.1 mmol/L (137-145)
[2018-10-18] MEDS ORDERED: (PENDING PHARMACY ID) (Lisinopril [Lisinopril] 20 MG) PO SCH (10:00)
[2018-10-18] MEDS ORDERED: ENOXAPARIN SODIUM INJ 40 MG/0.4 ML DISP.SYRIN SUBCUT SCH (10:00)
[2018-10-18] MEDS: LEVOFLOXACIN 500 MG/D5W RTU 500 MG/100 ML RTUPB IV SCH (10:16)
[2018-10-18] MEDS: LISINOPRIL 10 MG TABLET PO SCH (10:17)
[2018-10-18] MEDS: NORMAL SALINE 1000 ML 1,000 ML IV PRN (10:17)
--- NOTE | 2018-10-18 14:18 | PDOC PROGRESS REPORT ---
Subjective Progress Note for:: 10/18/18 Subjective:: SHERI ROSS is a 78 year old male past medical history of hypertension CAD status post CABG, dyslipidemia, external hemorrhoids, tenting to ED complaining of left lower quadrant abdominal pain x4 days treated with diarrhea. Abdominal pain is in the left lower quadrant, colicky, 3/5 intensity, worse with eating, relieved with BMs. Denies any fever, chills, chest pain, weight changes, hematuria, or any urinary symptoms. CT abdomen and ED showed extensive diverticulosis of the descending and sigmoid colon. Mild inflammatory changes along the descending colon consistent with diverticulitis. 10/18/2018. No acute events overnight. Patient is endorsing 2 episodes of diarrhea since yesterday, nonbloody, left lower quadrant pain which has improved significantly since yesterday. Denies any fever, chills, nausea, vomiting or any urinary symptoms. Reason For Visit: ACUTE DIVERTICULITIS, MASS LEFT KIDNEY Physical Exam Vital Signs: Temp Pulse Resp BP Pulse Ox 98 F 60 15 114/61 97 10/18/18 11:00 10/18/18 12:38 10/18/18 12:38 10/18/18 11:00 10/18/18 12:38 Intake & Output 10/17/18 10/18/18 10/19/18 06:59 06:59 06:59 Intake Total 2800 Balance 2800 Weight 81.3 kg General appearance: PRESENT: no acute distress, well-developed, well-nourished Head exam: PRESENT: atraumatic, normocephalic Eye exam: PRESENT: conjunctiva pink, EOMI, PERRLA. ABSENT: scleral icterus Ear exam: PRESENT: normal external ear exam Mouth exam: PRESENT: moist, tongue midline Neck exam: ABSENT: carotid bruit, JVD, lymphadenopathy, thyromegaly Respiratory exam: PRESENT: clear to auscultation autumn. ABSENT: rales, rhonchi, wheezes Cardiovascular exam: PRESENT: RRR. ABSENT: diastolic murmur, rubs, systolic murmur Pulses: PRESENT: normal dorsalis pedis pul Vascular exam: PRESENT: normal capillary refill GI/Abdominal exam: PRESENT: guarding, normal bowel sounds, soft, tenderness - LLQ. ABSENT: distended, mass, organolmegaly, rebound Rectal exam: PRESENT: deferred Extremities exam: PRESENT: full ROM. ABSENT: calf tenderness, clubbing, pedal edema Neurological exam: PRESENT: alert, awake, oriented to person, oriented to place, oriented to time, oriented to situation, CN II-XII grossly intact. ABSENT: motor sensory deficit Psychiatric exam: PRESENT: appropriate affect, normal mood. ABSENT: homicidal ideation, suicidal ideation Skin exam: PRESENT: dry, intact, warm. ABSENT: cyanosis, rash Results Laboratory Results: 10/18/18 05:41 10/18/18 05:41 10/18/18 10/18/18 05:41 05:41 WBC 8.0 RBC 4.15 L Hgb 13.1 L Hct 38.0 MCV 92 MCH 31.7 MCHC 34.6 RDW 13.0 Plt Count 127 L Sodium 136.1 L Potassium 4.2 Chloride 107 Carbon Dioxide 24 Anion Gap 5 BUN 20 Creatinine 1.21 Est GFR ( Amer) > 60 Est GFR (Non-Af Amer) 58 L Glucose 98 Calcium 8.7 Impressions: Abdomen/Pelvis CT 10/17/18 00:00 IMPRESSION: 1. EXTENSIVE DIVERTICULOSIS OF THE DESCENDING AND SIGMOID COLON. MILD INFLAMMATORY CHANGES ALONG THE DESCENDING COLON CONSISTENT WITH DIVERTICULITIS. NO EVIDENCE OF PERFORATION OR ABSCESS. 2. 2.0 X 2.5 CM SOLID MASS IN THE UPPER POLE OF THE LEFT KIDNEY HIGHLY SUSPICIOUS FOR MALIGNANCY. 3. NO OTHER SIGNIFICANT OR ACUTE FINDING IN THE ABDOMEN OR PELVIS ON CT SCAN WITH IV CONTRAST. Assessment and Plan - Diagnosis (1) Acute diverticulitis Is this a current diagnosis for this admission?: Yes Plan: Abdominal pain improving. Day 2 IV antibiotics. Day 2 IV levofloxacin. 2 IV metronidazole. Cultures no growth so far. Continue empiric IV antibiotics, volume resuscitation guided by volume status, monitor electrolytes and replace as needed. Blood, stool culture. 10/17/2018 CT abdomen. Extensive diverticulosis of the descending and sigmoid colon. Mild inflammatory changes along the descending colon consistent with div erticulitis. (2) Hypertension Is this a current diagnosis for this admission?: Yes Plan: Euvolemic. Normotensive. Restart home meds. PRN hydralazine. Adjust meds as needed. Outpatient PCP follow-up. (3) Dyslipidemia Is this a current diagnosis for this admission?: Yes Plan: Diet and lifestyle modification. Restart statins. (4) CAD (coronary artery disease) Qualifiers: Coronary Disease-Associated Artery/Lesion type: bypass graft, autologous artery Is this a current diagnosis for this admission?: Yes Plan: History of CABG. Denies any anginal symptoms. Continue antiplatelets, beta-blockers, MARK ANTHONY, statins. (5) Kidney mass Is this a current diagnosis for this admission?: Yes Plan: Incidental finding. Denies any history of malignancy. Denies any weight changes or hematuria. 10/17/2018. 2.2 x 2.5 cm solid mass in the upper pole of the left kidney highly suspicious for malignancy. Unfortunately no urology consult available at [facility]. Arrange for patient to see urologist as outpatient upon discharge. (6) External hemorrhoids Is this a current diagnosis for this admission?: Yes Plan: Worsened by recent diarrhea caused by acute diverticulitis. Outpatient surgery follow-up. Monitor H&H. Supportive measures. (7) BPH (benign prostatic hyperplasia) Qualifiers: Lower urinary tract symptom presence: symptoms absent Qualified Code(s): N40.0 - Benign prostatic hyperplasia without lower urinary tract symptoms Is this a current diagnosis for this admission?: Yes Plan: Restart tamsulosin. (8) Hypothyroidism Is this a current diagnosis for this admission?: Yes Plan: Restart levothyroxine.
[2018-10-18] MEDS: ATORVASTATIN CALCIUM 40 MG TABLET PO SCH (21:29)
[2018-10-18] MEDS: TAMSULOSIN HCL 0.4 MG CAP.SR.24H PO SCH (21:29)
[2018-10-19 05:01] LABS: ABSOLUTE EOSINOPHILS # (AUTO) 0.2 10^3/uL (0.0-0.6); ABSOLUTE LYMPHOCYTES (AUTO) 1.5 10^3/uL (0.5-4.7); ABSOLUTE MONOCYTES (AUTO) 0.6 10^3/uL (0.1-1.4); ABSOLUTE NEUT (AUTO) 5.8 10^3/uL (1.7-8.2); BASOPHILS % (AUTO) 0.5 % (0-2); EOSINOPHILS % (AUTO) 2.7 % (0-6); HEMATOCRIT 36.9 % (37.9-51.0); HEMOGLOBIN 12.7 g/dL (13.5-17.0); MEAN CORPUSCULAR HEMOGLOBIN 31.7 pg (27.0-33.4); MEAN CORPUSCULAR HGB CONC 34.5 g/dL (32.0-36.0); MEAN CORPUSCULAR VOLUME 92 fl (80-97); MONOCYTES % (AUTO) 7.4 % (3-13); PLATELET COUNT 122 10^3/uL (150-450); RED BLOOD COUNT 4.01 10^6/uL (4.35-5.55); RED CELL DISTRIBUTION WIDTH 13.2 % (11.5-14.0); SEGMENTED NEUTROPHILS % (AUTO) 71.4 % (42-78); TOTAL CELLS COUNTED % (AUTO) 100 %; WHITE BLOOD COUNT 8.1 10^3/uL (4.0-10.5)
[2018-10-19 05:20] LABS: ANION GAP 6 (5-19); BLOOD UREA NITROGEN 21 mg/dL (7-20); CALCIUM 8.7 mg/dL (8.4-10.2); CARBON DIOXIDE 24 mmol/L (22-30); CHLORIDE 108 mmol/L (98-107); GLUCOSE 99 mg/dL (75-110); POTASSIUM 4.1 mmol/L (3.6-5.0); SODIUM 137.9 mmol/L (137-145)
[2018-10-19] MEDS: METRONIDAZOLE 500 MG/NS RTU 500 MG/100 ML RTUPB IV SCH (05:44)
[2018-10-19] MEDS: PANTOPRAZOLE SODIUM 40 MG TABLET.DR PO SCH (05:45)
[2018-10-19] MEDS: LEVOTHYROXINE SODIUM 0.075 MG TABLET PO SCH (05:45)
[2018-10-19] MEDS: NORMAL SALINE 1000 ML 1,000 ML IV PRN (05:51)
[2018-10-19 09:00] VITALS: BP 125/70
== END 2018-10-19 09:18 | disposition home or self-care (01) | DRG 392 ==
LOC: ER 09:36 → EH 14:23 → 2S 16:43 → OBSVTOIN 10-18 10:56
PROVIDERS: ADMIT Internal Medicine; ATTEND Internal Medicine
DX: K57.32 Diverticulitis of large intestine without perforation or abscess without bleeding (principal); I10 Essential (primary) hypertension; I25.10 Atherosclerotic heart disease of native coronary artery without angina pectoris; E78.5 Hyperlipidemia, unspecified; N28.89 Other specified disorders of kidney and ureter; K64.4 Residual hemorrhoidal skin tags; N40.0 Benign prostatic hyperplasia without lower urinary tract symptoms; I25.2 Old myocardial infarction; E03.9 Hypothyroidism, unspecified; Z79.899 Other long term (current) drug therapy; Z95.1 Presence of aortocoronary bypass graft; Z88.6 Allergy status to analgesic agent; Z88.0 Allergy status to penicillin
CPT/HCPCS: 36415; 74177; 80048; 80053; 81001; 85025; 85027; 86850; 86900; 86901; 87040; 96361; 96374; 96375; 99291; G0378; J1956; J2270; J2405; J3490; J7030

== ENCOUNTER → 2018-10-27 | Outpatient (CLI) | payer MEDICARE ==
--- NOTE | 2018-10-27 16:53 | RADIOLOGY REPORT (SQ) ---
EXAM DESCRIPTION: RIBS RIGHT W/PA CHEST COMPLETED DATE/TIME: 10/27/2018 2:50 pm REASON FOR STUDY: RIGHT RIB PAIN R07.81 PLEURODYNIA COMPARISON: CT scan 10/17/2018 TECHNIQUE: Frontal view of the chest and additional views of the right ribs acquired. NUMBER OF VIEWS: Five view LIMITATIONS: None. FINDINGS: FRONTAL CXR: No pneumothorax. No pleural effusion. No atelectasis or infiltrates. RIBS: Moth-eaten cortical destruction of the 8th right lateral rib. Suspicious for metastatic diseas e or myeloma. No obvious pathologic fracture. OTHER: No other significant finding. IMPRESSION: Multi cortical destruction of 8 right lateral rib. Suspicious for metastatic disease or multiple myeloma. No pneumothorax. COMMENT: The findings were sent to the Radiology Results Communication Center at 16:46 on 10/27/2018 to be communicated to a licensed caregiver. SITE OF TRAUMA/COMPLAINT MARKED/STAMP COMPLETED: Yes TECHNICAL DOCUMENTATION: JOB ID: [id number] [employer]- All Rights Reserved Reading location - IP/workstation name: [email or web address]
== END ==
LOC: OD 14:37
PROVIDERS: ATTEND Family Medicine Geriatric Medicine
DX: M89.8X8 Other specified disorders of bone, other site (principal); R07.81 Pleurodynia

== ENCOUNTER → 2018-11-03 | Outpatient (CLI) | payer MEDICARE ==
[2018-11-05 15:36] LABS: A/G RATIO 1.3 (0.7-1.7); ALPHA-2-GLOBULIN 2 0.8 g/dL (0.4-1.0); GAMMA GLOBULIN 0.9 g/dL (0.4-1.8); MONOCLONAL SPIKE Not Observed g/dL (Not Observ)
== END ==
LOC: OD 15:33
PROVIDERS: ATTEND Family Medicine Geriatric Medicine
DX: D48.0 Neoplasm of uncertain behavior of bone and articular cartilage (principal); N28.89 Other specified disorders of kidney and ureter
CPT/HCPCS: 36415; 84165

== ENCOUNTER → 2018-12-11 | Outpatient (CLI) | payer MEDICARE ==
[2018-12-11 08:20] LABS: ABSOLUTE EOSINOPHILS # (AUTO) 0.2 10^3/uL (0.0-0.6); ABSOLUTE LYMPHOCYTES (AUTO) 1.2 10^3/uL (0.5-4.7); ABSOLUTE MONOCYTES (AUTO) 1.4 10^3/uL (0.1-1.4); ABSOLUTE NEUT (AUTO) 7.6 10^3/uL (1.7-8.2); BASOPHILS % (AUTO) 0.2 % (0-2); HEMATOCRIT 39.3 % (37.9-51.0); HEMOGLOBIN 13.3 g/dL (13.5-17.0); LYMPHOCYTES % (AUTO) 11.2 % (13-45); MEAN CORPUSCULAR HEMOGLOBIN 31.5 pg (27.0-33.4); MEAN CORPUSCULAR HGB CONC 33.8 g/dL (32.0-36.0); MEAN CORPUSCULAR VOLUME 93 fl (80-97); MONOCYTES % (AUTO) 13.1 % (3-13); PLATELET COUNT 138 10^3/uL (150-450); RED BLOOD COUNT 4.22 10^6/uL (4.35-5.55); SEGMENTED NEUTROPHILS % (AUTO) 73.5 % (42-78); TOTAL CELLS COUNTED % (AUTO) 100 %; WHITE BLOOD COUNT 10.3 10^3/uL (4.0-10.5)
[2018-12-11 08:41] LABS: TRIGLYCERIDES 98 mg/dL (<150)
[2018-12-11 08:51] LABS: DIRECT LDL 74 mg/dL (<100)
== END ==
LOC: OD 07:21
PROVIDERS: ATTEND Family Medicine Geriatric Medicine
DX: D69.6 Thrombocytopenia, unspecified (principal); E78.5 Hyperlipidemia, unspecified; Z79.899 Other long term (current) drug therapy
CPT/HCPCS: 36415; 80061; 84460; 85025

== ENCOUNTER → 2019-01-26 | Outpatient (CLI) | payer MEDICARE ==
--- NOTE | 2019-01-26 15:11 | RADIOLOGY REPORT (SQ) ---
EXAM DESCRIPTION: HIP LEFT AP/LATERAL COMPLETED DATE/TIME: 01/26/2019 2:06 pm REASON FOR STUDY: M25.552 PAIN IN LEFT HIP M25.552 PAIN IN LEFT HIP M54.5 LOW BACK PAIN COMPARISON: None. NUMBER OF VIEWS: Two views. TECHNIQUE: AP pelvis and additional frog-leg view of the left hip. LIMITATIONS: None. FINDINGS: MINERALIZATION: Normal. LEFT HIP: No fracture or dislocation. No worrisome bone lesions. RIGHT HIP: No fracture or dislocation. No worrisome bone lesions. PUBIS AND ISCHIUM: No fracture. PELVIS: No fracture. SACRUM: No fracture or dislocation. No worrisome bone lesions. LOWER LUMBAR SPINE: Lower lumbar degenerative disc disease and spondylosis. SOFT TISSUES: No findings. OTHER: No other significant finding. IMPRESSION: Lower lumbar degenerative changes. Normal hip. TECHNICAL DOCUMENTATION: JOB ID: [id number] [employer]- All Rights Reserved Reading location - IP/workstation name: [email or web address]
--- NOTE | 2019-01-26 15:14 | RADIOLOGY REPORT (SQ) ---
EXAM DESCRIPTION: SACRUM AND COCCYX COMPLETED DATE/TIME: 01/26/2019 2:06 pm REASON FOR STUDY: M54.5 LOW BACK PAIN M25.552 PAIN IN LEFT HIP M54.5 LOW BACK PAIN COMPARISON: None. NUMBER OF VIEWS: Three views. TECHNIQUE: AP, lateral, and tilt views of the sacrum and coccyx. LIMITATIONS: None. FINDINGS: MINERALIZATION: Normal. BONES: No acute fracture or dislocation. No worrisome bone lesions. SOFT TISSUES: No soft tissue swelling. No foreign body. OTHER: No other significant finding. IMPRESSION: NEGATIVE STUDY OF THE SACRUM AND COCCYX. TECHNICAL DOCUMENTATION: JOB ID: [id number] [employer]- All Rights Reserved Reading location - IP/workstation name: [email or web address]
--- NOTE | 2019-01-26 15:20 | RADIOLOGY REPORT (SQ) ---
EXAM DESCRIPTION: L SPINE WHOLE COMPLETED DATE/TIME: 01/26/2019 2:06 pm REASON FOR STUDY: LOW BACK PAIN M25.552 PAIN IN LEFT HIP M54.5 LOW BACK PAIN COMPARISON: None. NUMBER OF VIEWS: Five views including obliques. TECHNIQUE: AP, lateral, oblique, and sacral radiographic images acquired of the lumbar spine. LIMITATIONS: None. FINDINGS: MINERALIZATION: Normal. SEGMENTATION: Normal. No transitional anatomy. ALIGNMENT: Normal. VERTEBRAE: Maintained height. No fracture or worrisome bone lesion. DISCS: There is narrowing of the L4-5 disc space with marginal osteophytes. POSTERIOR ELEMENTS: Pedicles and facets are intact. No pars defect or posterior arch defects. HARDWARE: None in the spine. PARASPINAL SOFT TISSUES: Normal. PELVIS: Intact as visualized. No fractures or worrisome bone lesions. SI joints intact. OTHER: No other significant finding. IMPRESSION: Degenerative disc disease and spondylosis. TECHNICAL DOCUMENTATION: JOB ID: [id number] [employer]- All Rights Reserved Reading location - IP/workstation name: [email or web address]
== END ==
LOC: RAD 13:08
PROVIDERS: ATTEND Family Medicine Geriatric Medicine
DX: M25.552 Pain in left hip (principal); M54.5 Low back pain; M51.36 Other intervertebral disc degeneration, lumbar region; M47.896 Other spondylosis, lumbar region
CPT/HCPCS: 72110; 72220

== ENCOUNTER → 2019-01-30 | Outpatient (CLI) | payer MEDICARE ==
[2019-01-30 08:03] LABS: ABSOLUTE EOSINOPHILS # (AUTO) 0.2 10^3/uL (0.0-0.6); ABSOLUTE LYMPHOCYTES (AUTO) 1.4 10^3/uL (0.5-4.7); ABSOLUTE MONOCYTES (AUTO) 0.5 10^3/uL (0.1-1.4); ABSOLUTE NEUT (AUTO) 4.2 10^3/uL (1.7-8.2); BASOPHILS % (AUTO) 0.7 % (0-2); EOSINOPHILS % (AUTO) 3.6 % (0-6); HEMATOCRIT 40.7 % (37.9-51.0); HEMOGLOBIN 13.8 g/dL (13.5-17.0); LYMPHOCYTES % (AUTO) 21.4 % (13-45); MEAN CORPUSCULAR HEMOGLOBIN 31.4 pg (27.0-33.4); MEAN CORPUSCULAR HGB CONC 33.9 g/dL (32.0-36.0); MEAN CORPUSCULAR VOLUME 93 fl (80-97); MONOCYTES % (AUTO) 7.9 % (3-13); PLATELET COUNT 149 10^3/uL (150-450); RED CELL DISTRIBUTION WIDTH 13.3 % (11.5-14.0); SEGMENTED NEUTROPHILS % (AUTO) 66.4 % (42-78); TOTAL CELLS COUNTED % (AUTO) 100 %; WHITE BLOOD COUNT 6.3 10^3/uL (4.0-10.5)
== END ==
LOC: OD 07:24
PROVIDERS: ATTEND Family Medicine Geriatric Medicine
DX: D69.6 Thrombocytopenia, unspecified (principal); E03.9 Hypothyroidism, unspecified; Z79.899 Other long term (current) drug therapy
CPT/HCPCS: 36415; 84443; 85025

== ENCOUNTER → 2019-03-03 | Outpatient (CLI) | payer MEDICARE | LOC: OD 07:03 | PROVIDERS: ATTEND Family Medicine Geriatric Medicine | DX: E03.9 Hypothyroidism, unspecified (principal); Z79.899 Other long term (current) drug therapy | CPT/HCPCS: 36415; 84443 ==

== ENCOUNTER 2019-05-07 08:22 | Inpatient (IN) | payer MEDICARE ==
[2019-05-07 09:21] LABS: ABSOLUTE EOSINOPHILS # (AUTO) 0.1 10^3/uL (0.0-0.6); ABSOLUTE LYMPHOCYTES (AUTO) 0.4 10^3/uL (0.5-4.7); ABSOLUTE MONOCYTES (AUTO) 0.4 10^3/uL (0.1-1.4); ABSOLUTE NEUT (AUTO) 5.6 10^3/uL (1.7-8.2); BASOPHILS % (AUTO) 0.5 % (0-2); EOSINOPHILS % (AUTO) 1.2 % (0-6); HEMATOCRIT 49.1 % (37.9-51.0); HEMOGLOBIN 17.5 g/dL (13.5-17.0); MEAN CORPUSCULAR HEMOGLOBIN 32.9 pg (27.0-33.4); MEAN CORPUSCULAR HGB CONC 35.6 g/dL (32.0-36.0); MEAN CORPUSCULAR VOLUME 92 fl (80-97); MONOCYTES % (AUTO) 6.2 % (3-13); RED BLOOD COUNT 5.31 10^6/uL (4.35-5.55); RED CELL DISTRIBUTION WIDTH 13.8 % (11.5-14.0); SEGMENTED NEUTROPHILS % (AUTO) 86.1 % (42-78); TOTAL CELLS COUNTED % (AUTO) 100 %; WHITE BLOOD COUNT 6.5 10^3/uL (4.0-10.5)
[2019-05-07 09:33] LABS: ALBUMIN 4.4 g/dL (3.5-5.0); ALKALINE PHOSPHATASE 107 U/L (38-126); ANION GAP 14 (5-19); ASPARTATE AMINO TRANSFERASE 52 U/L (17-59); BILIRUBIN,DIRECT 0.1 mg/dL (0.0-0.4); BILIRUBIN,TOTAL 2.3 mg/dL (0.2-1.3); BLOOD UREA NITROGEN 31 mg/dL (7-20); CARBON DIOXIDE 25 mmol/L (22-30); CHLORIDE 96 mmol/L (98-107); GLUCOSE 159 mg/dL (75-110); POTASSIUM 4.4 mmol/L (3.6-5.0); TOTAL PROTEIN 7.4 g/dL (6.3-8.2)
[2019-05-07] MEDS ORDERED: ONDANSETRON HCL INJ/PF 4 MG/2 ML SDV IV ONE (09:47)
[2019-05-07] MEDS ORDERED: MORPHINE SULFATE 10 MG/ML INJ IV ONE (09:47)
[2019-05-07] MEDS ORDERED: NORMAL SALINE 1000 ML 1,000 ML IV ONE (09:48)
[2019-05-07 09:50] LABS: PLATELET COUNT 61 10^3/uL (150-450)
[2019-05-07 10:18] LABS: APPEARANCE,URINE CLEAR; BILIRUBIN,URINE NEGATIVE (NEGATIVE); GLUCOSE, URINE NEGATIVE (NEGATIVE); KETONES,URINE NEGATIVE (NEGATIVE); LEUKOCYTE ESTERASE,URINE NEGATIVE (NEGATIVE); NITRITE,URINE NEGATIVE (NEGATIVE); PROTEIN,URINE 30 mg/dL (NEGATIVE); URINE SPECIFIC GRAVITY 1.015; UROBILINOGEN,URINE NEGATIVE mg/dL (<2.0)
[2019-05-07] MEDS ORDERED: FAMOTIDINE INJ/PF 20 MG/2 ML SDV IV ONE (10:21)
[2019-05-07 10:23] LABS: COLOR,URINE YELLOW
--- NOTE | 2019-05-07 11:18 | RADIOLOGY REPORT (SQ) ---
EXAM DESCRIPTION: CT ABD/PELVIS NO ORAL OR IV COMPLETED DATE/TIME: 05/07/2019 10:53 am REASON FOR STUDY: lower abdominal pain, eval for diverticulitis COMPARISON: 10/17/2018 TECHNIQUE: CT scan of the abdomen and pelvis performed without intravenous or oral contrast. Images reviewed with lung, soft tissue, and bone windows. Reconstructed coronal and sagittal MPR images revi ewed. All images stored on PACS. All CT scanners at this facility use dose modulation, iterative reconstruction, and/or weight based d osing when appropriate to reduce radiation dose to as low as reasonably achievable (ALARA). [facility]: Dose Right [facility]: CareDose [facility]: Dose Right [facility]: Teradose 4D [facility]: Smart [employer] RADIATION DOSE: CT Rad equipment meets quality standard of care and radiation dose reduction techniq ues were employed. CTDIvol: 10.0 mGy. DLP: 552 mGy-cm.mGy. LIMITATIONS: None. FINDINGS: LOWER CHEST: Small hiatal hernia. NON-CONTRASTED LIVER, SPLEEN, ADRENALS: Evaluation limited by lack of IV contrast. No identified sign ificant masses. PANCREAS: No masses. No peripancreatic inflammatory changes. GALLBLADDER: No identified stones by CT criteria. No inflammatory changes to suggest cholecystitis. RIGHT KIDNEY AND URETER: No suspicious masses. Assessment limited by lack of IV contrast. No signif icant calcifications. No hydronephrosis or hydroureter. LEFT KIDNEY AND URETER: Perinephric stranding upper pole near site of previously described solid mass , presumably related to biopsy or ablation. No significant calcifications. No hydronephrosis or h ydroureter. AORTA AND RETROPERITONEUM: No aneurysm. No retroperitoneal masses or adenopathy. BOWEL AND PERITONEAL CAVITY: Mild inflammatory changes associated with distal descending colon and pr oximal sigmoid colon. Extensive diverticulosis. APPENDIX: Normal. PELVIS, BLADDER, AND ABDOMINAL WALL:No abnormal masses. No free fluid. Bladder normal. BONES: No significant findings. OTHER: No other significant finding. IMPRESSION: Diverticulitis distal descending colon. COMMENT: Quality ID # [id number]: Final reports with documentation of one or more dose reduction techniques (e.g., Automated exposure control, adjustment of the mA and/or kV according to patient size, use of iterative reconstruction technique) TECHNICAL DOCUMENTATION: JOB ID: [id number]- All Rights Reserved Reading location - IP/workstation name: [email or web address]
--- NOTE | 2019-05-07 11:41 | RADIOLOGY REPORT (SQ) ---
EXAM DESCRIPTION: CHEST 2 VIEWS COMPLETED DATE/TIME: 05/07/2019 11:24 am REASON FOR STUDY: shaking chills, chemotherapy patient COMPARISON: 05/16/2017 EXAM PARAMETERS: NUMBER OF VIEWS: two views TECHNIQUE: Digital Frontal and Lateral radiographic views of the chest acquired. RADIATION DOSE: NA LIMITATIONS: none FINDINGS: LUNGS AND PLEURA: No opacities, masses or pneumothorax. No pleural effusion. MEDIASTINUM AND HILAR STRUCTURES: No masses or contour abnormalities. HEART AND VASCULAR STRUCTURES: Heart normal size. No evidence for failure. BONES: No acute findings. HARDWARE: CABG. OTHER: No other significant finding. IMPRESSION: NO ACUTE RADIOGRAPHIC FINDING IN THE CHEST. TECHNICAL DOCUMENTATION: JOB ID: [id number] [employer]- All Rights Reserved Reading location - IP/workstation name: [email or web address]
[2019-05-07] MEDS ORDERED: METRONIDAZOLE 500 MG/NS RTU 500 MG/100 ML RTUPB IV ONE (11:47)
[2019-05-07] MEDS ORDERED: CIPROFLOXACIN 400 MG/D5W RTU 400 MG/200 ML RTUPB IV ONE ×2 (11:47→13:00)
--- NOTE | 2019-05-07 12:11 | ER Document Report ---
ED General - General Chief Complaint: Nausea/Vomiting Stated Complaint: WEAKNESS Time Seen by Provider: 05/07/19 10:04 Primary Care Provider: MIKAELA ARRIOLA MD [Primary Care Provider] - Follow up as needed TRAVEL OUTSIDE OF THE [place] IN LAST 30 DAYS: No - HPI Notes: Patient is an 79-year-old male with a history of renal cancer, on oral chemotherapy, who presents to the emergency department for evaluation of nausea, vomiting, chills, lower abdominal pain. The patient has had intermittent nausea and vomiting for some time, but it seems to been worsening. He is been having some intermittent shaking chills. No ivan fevers to their knowledge. He is had some cramping lower abdominal pain. He admits he has not had a bowel movement in several days, but actually just prior to my arrival had a large bowel movement while here in the emergency department. He states his pain persists. He is still urinating although it is less. According to the daughter his color is not normal either. Otherwise, he is been having some difficulty keeping his medications down. - Related Data Allergies/Adverse Reactions: Penicillins Allergy (Intermediate, Verified 10/17/18 09:38) Edema aspirin [Aspirin] Adverse Reaction (Mild, Verified 10/17/18 09:38) "UPSET STOMACH" WITH NONENTERIC COATED Home Medications: List reviewed, please see note Past Medical History - General Information source: Patient, Relative - Social History Smoking Status: Never Smoker Family History: None, Reviewed & Not Pertinent Patient has suicidal ideation: No Patient has homicidal ideation: No - Past Medical History Cardiac Medical History: Reports: Hx Coronary Artery Disease - HIGH CHOL, Hx Heart Attack - [place] 25Years Ago, Hx Hypercholesterolemia, Hx Hypertension Pulmonary Medical History: Denies: Hx Asthma, Hx Bronchitis, Hx COPD, Hx Pneumonia Neurological Medical History: Denies: Hx Cerebrovascular Accident, Hx Seizures Renal/ Medical History: Denies: Hx Peritoneal Dialysis Malignancy Medical History: Reports Hx Renal (Kidney) Cancer Musculoskeletal Medical History: Reports Hx Arthritis Past Surgical History: Reports: Hx Cardiac Catheterization, Hx Cardiac Surgery, Hx Kidney (Renal Surgery) - biposy, Hx Orthopedic Surgery - biposy. Denies: Hx Pacemaker - Immunizations Hx Diphtheria, Pertussis, Tetanus Vaccination: Yes Review of Systems - Review of Systems Constitutional: See HPI EENT: No symptoms reported Cardiovascular: No symptoms reported Respiratory: No symptoms reported Gastrointestinal: See HPI Genitourinary: No symptoms reported Musculoskeletal: No symptoms reported Skin: See HPI Neurological/Psychological: No symptoms reported Physical Exam - Vital signs Vitals: Temp Resp BP Pulse Ox 98.0 F 21 H 129/86 H 98 05/07/19 08:42 05/07/19 08:42 05/07/19 08:42 05/07/19 08:42 - Notes Notes: Is an 79-year-old male who appears her stated age in no acute distress. Vital signs reviewed, please refer to chart. Head is normocephalic, atraumatic. Pupils equal round, reactive to light. Neck is supple without meningismus. Heart is regular rate and rhythm. Lungs are clear to auscultation bilaterally. Abdomen is soft, mildly tender in the epigastrium, moderately tender in the left lower quadrant without rebound or guarding, normoactive bowel sounds throughout. Extremities without cyanosis, clubbing. Posterior calves are nontender. Peripheral pulses are equal. Skin is warm and dry. Patient is awake, alert, neurological exam is nonfocal. Course - Re-evaluation Re-evalutation: 05/07/19 12:10 Patient presents to the emergency department for evaluation. He had initial laboratory investigations as ordered. I did add additional investigations as I was concerned about the possibility of sepsis in this 79-year-old gentleman, on chemotherapy, with intermittent shaking chills. Because of his abdominal tenderness I did order CT scan of the abdomen pelvis as well. Laboratory investigation showed acute on chronic renal failure, likely secondary to some mild dehydration. CT scan of the abdomen pelvis revealed acute diverticulitis. Patient was given IV Cipro, Flagyl. He was treated symptomatically and was feeling significantly improved. I spoke with Dr. Camacho, he will admit the patient further care. - Vital Signs Vital signs: Temp Pulse Resp BP Pulse Ox 98 F 27 H 111/62 95 05/07/19 09:55 05/07/19 11:30 05/07/19 11:30 05/07/19 11:30 - Laboratory Result Diagrams: 05/07/19 08:57 05/07/19 08:57 Laboratory results interpreted by me: 05/07/19 05/07/19 05/07/19 08:57 08:57 09:31 Hgb 17.5 H Plt Count 61 L Lymph % (Auto) 6.0 L Absolute Lymphs (auto) 0.4 L Seg Neutrophils % 86.1 H Sodium 134.8 L Chloride 96 L BUN 31 H Creatinine 2.04 H Est GFR ( Amer) 38 L Est GFR (MDRD) Non-Af 32 L Glucose 159 H Total Bilirubin 2.3 H Urine Protein 30 H - Diagnostic Test Radiology reviewed: Image reviewed, Reports reviewed Radiology results interpreted by me: 05/07/19 12:11 Abdomen/Pelvis CT 05/07/19 10:20 IMPRESSION: Diverticulitis distal descending colon. Chest X-Ray 05/07/19 10:20 IMPRESSION: NO ACUTE RADIOGRAPHIC FINDING IN THE CHEST. Discharge - Discharge Clinical Impression: Acute diverticulitis Acute renal failure (ARF) Qualifiers: Acute renal failure type: unspecified Qualified Code(s): N17.9 - Acute kidney failure, unspecified Nausea & vomiting Qualifiers: Vomiting type: unspecified Vomiting Intractability: unspecified Qualified Code(s): R11.2 - Nausea with vomiting, unspecified Condition: Stable Disposition: ADMITTED INPATIENT Admitting Provider: Dr. Camacho Unit Admitted: Telemetry Referrals: MIKAELA ARRIOLA MD [Primary Care Provider] - Follow up as needed
[2019-05-07] MEDS ORDERED: MAG HYDROX/AL HYDROX/SIMETH SUSP 30 ML UDCUP PO PRN (12:42)
[2019-05-07] MEDS ORDERED: ZOLPIDEM TARTRATE 5 MG TABLET PO PRN (12:42)
[2019-05-07] MEDS ORDERED: ONDANSETRON HCL INJ/PF 4 MG/2 ML SDV IV PRN (12:42)
[2019-05-07] MEDS ORDERED: ACETAMINOPHEN 325 MG TABLET PO PRN (12:55)
[2019-05-07] MEDS ORDERED: MORPHINE SULFATE 10 MG/ML INJ IV PRN (12:55)
--- NOTE | 2019-05-07 13:27 | PDOC H&P ---
History of Present Illness Admission Date/PCP: 05/07/19 12:30 MIKAELA ARRIOLA MD Patient complains of: Abdominal pain, nausea vomiting History of Present Illness: SHERI ROSS is a 79 year old male with a diverticulitis, 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 Patient has been experiencing nausea since beginning of this month. Symptoms have not progressed in the past 2 to 3 days now associated with multiple episodes of vomiting and difficulty keeping down oral food. Patient has also been experiencing left lower quadrant pain with radiation to lower mid abdomen which he describes as a sharp pain not associated with food intake. Recently, he has been having c onstipation and notes improved abdominal pain when he has a bowel movement. No no other specific aggravating factors. First episode of diverticulitis was last year in October. Denies fever chills. Past Medical History Cardiac Medical History: Reports: Coronary Artery Disease - HIGH CHOL, Myocardial Infarction - [place] 25Years Ago, Hyperlipidema, Hypertension Pulmonary Medical History: Denies: Asthma, Bronchitis, Chronic Obstructive Pulmonary Disease (COPD), Pneumonia Neurological Medical History: Denies: Seizures Malignancy Medical History: Reports: Renal (Kidney) Cancer Musculoskeltal Medical History: Reports: Arthritis Hematology: Reports: Other - Renal cell cancer with metastasis to ribs and left hip Denies: Anemia Past Surgical History Past Surgical History: Reports: Cardiac Catheterization, Orthopedic Surgery - biposy Denies: Pacemaker Social History Information Source: Patient Lives with: Family Smoking Status: Never Smoker Electronic Cigarette use?: No Frequency of Alcohol Use: None Hx Recreational Drug Use: No Drugs: None Hx Prescription Drug Abuse: No - Advance Directive Resuscitation Status: Full Code Family History Family History: Hypertension Parental Family History Reviewed: Yes Children Family History Reviewed: NA Sibling(s) Family History Reviewed.: NA Medication/Allergy Home Medications: Atorvastatin Calcium [Lipitor 40 mg Tablet] 40 mg PO QPM 05/07/19 Calcium Carbonate [Calcium] 500 mg PO DAILY 05/07/19 Ergocalciferol (Vitamin D2) [Vitamin D] 400 unit PO QPM 05/07/19 Levothyroxine Sodium [Synthroid 0.1 mg Tablet] 0.1 mg PO Q6AM 01/16/20 Lisinopril [Prinivil] 20 mg PO DAILY 05/07/19 Multivitamin [Daily Multiple Vitamin] 1 each PO DAILY 05/07/19 Ondansetron [Zofran Odt 4 mg Tablet] 8 mg PO Q8HP PRN 05/07/19 Promethazine HCl [Phenergan 25 mg Tablet] 25 mg PO Q4HP PRN 05/07/19 Ranitidine HCl [Zantac] 300 mg PO QHS 05/07/19 Sunitinib Malate [Sutent] 50 mg PO DAILY 05/07/19 Tamsulosin HCl [Flomax] 0.4 mg PO QPM 05/07/19 Allergies/Adverse Reactions: Penicillins Allergy (Intermediate, Verified 10/17/18 09:38) Edema aspirin [Aspirin] Adverse Reaction (Mild, Verified 10/17/18 09:38) "UPSET STOMACH" WITH NONENTERIC COATED Review of Systems Constitutional: ABSENT: chills, fever(s) Eyes: ABSENT: visual disturbances Nose, Mouth, and Throat: ABSENT: vertigo Cardiovascular: ABSENT: chest pain Respiratory: ABSENT: cough, hemoptysis Gastrointestinal: PRESENT: abdominal pain, nausea, vomiting. ABSENT: hematemesis, hematochezia, melena Genitourinary: ABSENT: difficulty urinating, dysuria Integumentary: ABSENT: diaphoresis Neurological: PRESENT: dizziness. ABSENT: confusion Endocrine: ABSENT: polyuria Physical Exam Vital Signs: Temp Pulse Resp BP Pulse Ox 98 F 10 L 130/60 H 97 05/07/19 09:55 05/07/19 12:31 05/07/19 12:31 05/07/19 12:00 Intake & Output 05/06/19 05/07/19 05/08/19 06:59 06:59 06:59 Intake Total 1000 Balance 1000 Weight 77.8 kg General appearance: PRESENT: no acute distress, cooperative Head exam: PRESENT: atraumatic, normocephalic Neck exam: ABSENT: JVD Respiratory exam: PRESENT: clear to auscultation autumn, symmetrical, unlabored. ABSENT: tachypnea, wheezes Cardiovascular exam: PRESENT: RRR, +S1, +S2. ABSENT: tachycardia Vascular exam: ABSENT: pallor GI/Abdominal exam: PRESENT: normal bowel sounds, soft, tenderness - Mostly in the left lower quadrant. ABSENT: distended, firm, guarding, rebound, rigid Extremities exam: ABSENT: pedal edema Musculoskeletal exam: PRESENT: ambulatory Neurological exam: PRESENT: alert, awake, oriented to person, oriented to place, oriented to time Psychiatric exam: PRESENT: appropriate affect. ABSENT: agitated, anxious Focused psych exam: ABSENT: pressured speech, restlessness Skin exam: ABSENT: jaundice Results Laboratory Results: 05/07/19 08:57 05/07/19 08:57 05/07/19 05/07/19 05/07/19 08:57 08:57 09:31 WBC 6.5 RBC 5.31 Hgb 17.5 H Hct 49.1 MCV 92 MCH 32.9 MCHC 35.6 RDW 13.8 Plt Count 61 L Seg Neutrophils % 86.1 H Sodium 134.8 L Potassium 4.4 Chloride 96 L Carbon Dioxide 25 Anion Gap 14 BUN 31 H Creatinine 2.04 H Est GFR ( Amer) 38 L Glucose 159 H Calcium 10.0 Total Bilirubin 2.3 H AST 52 Alkaline Phosphatase 107 Total Protein 7.4 Albumin 4.4 Lipase 200.8 Urine Color YELLOW Urine Appearance CLEAR Urine pH 6.0 Ur Specific [place] 1.015 Urine Protein 30 H Urine Glucose (UA) NEGATIVE Urine Ketones NEGATIVE Urine Blood NEGATIVE Urine Nitrite NEGATIVE Ur Leukocyte Esterase NEGATIVE Urine WBC (Auto) 1 Urine RBC (Auto) 1 Impressions: Abdomen/Pelvis CT 05/07/19 10:20 IMPRESSION: Diverticulitis distal descending colon. Chest X-Ray 05/07/19 10:20 IMPRESSION: NO ACUTE RADIOGRAPHIC FINDING IN THE CHEST. Assessment and Plan - Diagnosis (1) Acute diverticulitis Is this a current diagnosis for this admission?: Yes Plan: Recurrent episode. CT imaging results reviewed by me showing extensive diverticulosis and diverticulitis involving the sigmoid colon. Empiric antibiotics treatment with ciprofloxacin and Flagyl Antiemetics Start on liquid diet and escalate as tolerated Pain control with Tylenol. Morphine for breakthrough pain. We will hold off on surgical evaluation for recurrent diverticulitis given age and current chemotherapy. Discussed with family and patient. (2) Acute renal failure (ARF) Qualifiers: Acute renal failure type: unspecified Qualified Code(s): N17.9 - Acute kidney failure, unspecified Is this a current diagnosis for this admission?: Yes Plan: Secondary to dehydration from decreased p.o. intake IV fluid hydration and encourage p.o. hydration, nausea control. Monitor BMP (3) Kidney cancer, primary, with metastasis from kidney to other site Qualifiers: Laterality: left Qualified Code(s): C64.2 - Malignant neoplasm of left kidney, except renal pelvis Is this a current diagnosis for this admission?: Yes Plan: Diagnosed in the second half of 2019. Reports metastasis to left hip as well as ribs s/p radiation. Currently on oral chemo daily with Sunitinib. Consult oncology [primary is Dr. Bocanegra] regarding if ok to continue chemo during acute infection. (4) Indirect hyperbilirubinemia Is this a current diagnosis for this admission?: Yes Plan: Hyperbilirubinemia is mild but mostly indirect bilirubin I suspect this may be secondary to increased RBC turnover from polycythemia associated with renal cell cancer. I will simply monitor for now. (5) Chemotherapy-induced thrombocytopenia Is this a current diagnosis for this admission?: Yes Plan: Secondary to sunitinib. Monitor CBC. DC Lovenox prophylaxis if platelet count drops below 50 (6) Hypothyroidism Is this a current diagnosis for this admission?: Yes Plan: Continue Synthroid - Time Time Spent with patient: 35 or more minutes
[2019-05-07] MEDS: METRONIDAZOLE 500 MG TABLET PO SCH ×2 (15:45→21:15)
[2019-05-07] MEDS ORDERED: HYDROCORTISONE ACETATE 25 MG SUPP.RECT PR PRN (16:13)
[2019-05-07] MEDS ORDERED: PROMETHAZINE HCL 25 MG TABLET PO PRN (16:15)
[2019-05-07] MEDS: TAMSULOSIN HCL 0.4 MG CAP.SR.24H PO SCH (17:19)
[2019-05-07] MEDS: DOCUSATE SODIUM 100 MG CAPSULE PO SCH (17:19)
[2019-05-07] MEDS: NORMAL SALINE 1000 ML 1,000 ML IV PRN (18:56)
[2019-05-07] MEDS: CIPROFLOXACIN 400 MG/D5W RTU 400 MG/200 ML RTUPB IV SCH (21:15)
[2019-05-07] MEDS: FAMOTIDINE 20 MG TABLET PO SCH (21:15)
[2019-05-07] MEDS: ATORVASTATIN CALCIUM 40 MG TABLET PO SCH (21:15)
[2019-05-07] MEDS ORDERED: METRONIDAZOLE 500 MG TABLET PO SCH (22:00)
[2019-05-08 05:37] LABS: MEAN CORPUSCULAR HEMOGLOBIN 32.6 pg (27.0-33.4); MEAN CORPUSCULAR HGB CONC 35.3 g/dL (32.0-36.0); MEAN CORPUSCULAR VOLUME 92 fl (80-97); RED BLOOD COUNT 4.45 10^6/uL (4.35-5.55); RED CELL DISTRIBUTION WIDTH 14.4 % (11.5-14.0); WHITE BLOOD COUNT 8.1 10^3/uL (4.0-10.5)
[2019-05-08] MEDS: METRONIDAZOLE 500 MG TABLET PO SCH ×3 (05:47→21:17)
[2019-05-08] MEDS: LEVOTHYROXINE SODIUM 0.1 MG TABLET PO SCH (05:47)
[2019-05-08] MEDS: NORMAL SALINE 1000 ML 1,000 ML IV PRN ×2 (05:48→19:55)
[2019-05-08 05:57] LABS: ALBUMIN 3.1 g/dL (3.5-5.0); ALKALINE PHOSPHATASE 72 U/L (38-126); ANION GAP 10 (5-19); ASPARTATE AMINO TRANSFERASE 45 U/L (17-59); BILIRUBIN,DIRECT 0.2 mg/dL (0.0-0.4); BILIRUBIN,TOTAL 1.9 mg/dL (0.2-1.3); BLOOD UREA NITROGEN 28 mg/dL (7-20); CARBON DIOXIDE 23 mmol/L (22-30); CHLORIDE 99 mmol/L (98-107); GLUCOSE 108 mg/dL (75-110); PLATELET COUNT 46 10^3/uL (150-450); POTASSIUM 4.1 mmol/L (3.6-5.0); TOTAL PROTEIN 5.7 g/dL (6.3-8.2)
[2019-05-08 05:59] LABS: HEMOGLOBIN 14.5 g/dL (13.5-17.0)
[2019-05-08] MEDS ORDERED: CALCIUM CARBONATE 500 MG TABLET PO SCH (08:00)
--- NOTE | 2019-05-08 08:35 | PDOC CONSULTATION ---
Consultation Consult Date: 05/08/19 Provider Consulted: FREDERICK RYAN Consult reason:: Hematology/Oncology consultation was requested for patient on active chemo for carcinoma unknown primary, thought to be kidney primary. 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 Extensive work-up revealed kidney as most likely source. He underwent radiation therapy and was started on Sutent oral chemo a few weeks ago. He states that he initially had constipation, then abdominal pain and vomiting with near syncope. He has not been able to to eat or drink much over the last 3-4 days. Yesterday, in the hospital, he had a very large BM and some blood. CT A/P without contrast showed diverticulitis and patient was started on Flagyl and Cipro. Today, he states that he is feeling better, but still uncomfortable. Only tolerating clear liquids. Past Medical History Cardiac Medical History: Reports: Coronary Artery Disease - HIGH CHOL, Myocardial Infarction - [place] 25Years Ago, Hyperlipidema, Hypertension Pulmonary Medical History: Denies: Asthma, Bronchitis, Chronic Obstructive Pulmonary Disease (COPD), Pneumonia EENT Medical History: Reports: Other - Renal cell cancer with metastasis to ribs and left hip Neurological Medical History: Denies: Seizures Malignancy Medical History: Reports: Renal (Kidney) Cancer - with bone mets. Musculoskeltal Medical History: Reports: Arthritis Hematology: Reports: Other - Thrombocytopenia Denies: Anemia Past Surgical History Past Surgical History: Reports: Cardiac Catheterization, Coronary Artery Bypass Graft - 1993, Orthopedic Surgery - biposy, Other - colonoscopy 2017, hemorrhoidectomy Denies: Pacemaker Social History Occupation: Own [employer] Lives with: Family Smoking Status: Never Smoker Electronic Cigarette use?: No Number of Years Smokin Last Time Smoked: 1962 Frequency of Alcohol Use: None Hx Recreational Drug Use: No Drugs: None Hx Prescription Drug Abuse: No Past Social History Note: with 2 children. - Advance Directive Resuscitation Status: Full Code Family History Family History: Hypertension Parental Family History Reviewed: Yes - Mother kidney disease. Father [place] age 60 Children Family History Reviewed: Yes - Daughter BRCA2 mutation + Sibling(s) Family History Reviewed.: Yes - Sister brain tumor. Brothers with pancreatic anc prostate cancer Medication/Allergy Home Medications: Atorvastatin Calcium [Lipitor 40 mg Tablet] 40 mg PO QPM 05/07/19 Calcium Carbonate [Calcium] 500 mg PO DAILY 05/07/19 Ergocalciferol (Vitamin D2) [Vitamin D] 400 unit PO QPM 05/07/19 Levothyroxine Sodium [Synthroid 0.1 mg Tablet] 0.1 mg PO Q6AM 05/07/19 Lisinopril [Prinivil] 20 mg PO DAILY 05/07/19 Multivitamin [Daily Multiple Vitamin] 1 each PO DAILY 05/07/19 Ondansetron [Zofran Odt 4 mg Tablet] 8 mg PO Q8HP PRN 05/07/19 Promethazine HCl [Phenergan 25 mg Tablet] 25 mg PO Q4HP PRN 05/07/19 Ranitidine HCl [Zantac] 300 mg PO QHS 05/07/19 Sunitinib Malate [Sutent] 50 mg PO DAILY 05/07/19 Tamsulosin HCl [Flomax] 0.4 mg PO QPM 05/07/19 Allergies/Adverse Reactions: Penicillins Allergy (Intermediate, Verified 10/17/18 09:38) Edema aspirin [Aspirin] Adverse Reaction (Mild, Verified 10/17/18 09:38) "UPSET STOMACH" WITH NONENTERIC COATED Review of Systems Constitutional: PRESENT: fever(s), headache(s) Eyes: ABSENT: visual disturbances Ears: ABSENT: hearing changes Nose, Mouth, and Throat: ABSENT: sore throat Cardiovascular: ABSENT: chest pain Respiratory: ABSENT: dyspnea Gastrointestinal: PRESENT: as per HPI Genitourinary: ABSENT: dysuria Musculoskeletal: ABSENT: joint swelling Integumentary: ABSENT: rash Neurological: PRESENT: weakness, other - near syncope Hematologic/Lymphatic: ABSENT: easy bleeding Physical Exam Vital Signs: Temp Pulse Resp BP Pulse Ox 98.1 F 85 16 141/75 H 95 05/07/19 23:05 05/07/19 23:05 05/07/19 23:05 05/07/19 23:05 05/07/19 23:05 Intake & Output 05/07/19 05/08/19 05/09/19 06:59 06:59 06:59 Intake Total 3424 Balance 3424 Weight 80.6 kg General appearance: PRESENT: no acute distress, well-developed, well-nourished Exam: 79 year old male. Head exam: PRESENT: normocephalic Eye exam: PRESENT: EOMI Mouth exam: PRESENT: moist, tongue midline Neck exam: ABSENT: lymphadenopathy, tenderness Respiratory exam: PRESENT: clear to auscultation autumn, unlabored Cardiovascular exam: PRESENT: RRR. ABSENT: systolic murmur GI/Abdominal exam: PRESENT: normal bowel sounds, soft, tenderness Extremities exam: ABSENT: pedal edema Musculoskeletal exam: PRESENT: normal inspection Neurological exam: PRESENT: alert, awake Psychiatric exam: PRESENT: appropriate affect Skin exam: PRESENT: normal color Results Laboratory Results: 05/08/19 05:09 05/08/19 05:09 05/07/19 05/07/19 05/07/19 08:57 08:57 09:31 WBC 6.5 RBC 5.31 Hgb 17.5 H Hct 49.1 MCV 92 MCH 32.9 MCHC 35.6 RDW 13.8 Plt Count 61 L Seg Neutrophils % 86.1 H Sodium 134.8 L Potassium 4.4 Chloride 96 L Carbon Dioxide 25 Anion Gap 14 BUN 31 H Creatinine 2.04 H Est GFR ( Amer) 38 L Glucose 159 H Calcium 10.0 Total Bilirubin 2.3 H AST 52 Alkaline Phosphatase 107 Total Protein 7.4 Albumin 4.4 Lipase 200.8 Urine Color YELLOW Urine Appearance CLEAR Urine pH 6.0 Ur Specific [place] 1.015 Urine Protein 30 H Urine Glucose (UA) NEGATIVE Urine Ketones NEGATIVE Urine Blood NEGATIVE Urine Nitrite NEGATIVE Ur Leukocyte Esterase NEGATIVE Urine WBC (Auto) 1 Urine RBC (Auto) 1 05/08/19 05/08/19 05:09 05:09 WBC 8.1 RBC 4.45 Hgb 14.5 D Hct 41.0 MCV 92 MCH 32.6 MCHC 35.3 RDW 14.4 H Plt Count 46 L Seg Neutrophils % Sodium 131.8 L Potassium 4.1 Chloride 99 Carbon Dioxide 23 Anion Gap 10 BUN 28 H Creatinine 1.56 H Est GFR ( Amer) 52 L Glucose 108 Calcium 8.0 L Total Bilirubin 1.9 H AST 45 Alkaline Phosphatase 72 Total Protein 5.7 L Albumin 3.1 L Lipase Urine Color Urine Appearance Urine pH Ur Specific [place] Urine Protein Urine Glucose (UA) Urine Ketones Urine Blood Urine Nitrite Ur Leukocyte Esterase Urine WBC (Auto) Urine RBC (Auto) Impressions: Abdomen/Pelvis CT 05/07/19 10:20 IMPRESSION: Diverticulitis distal descending colon. Chest X-Ray 05/07/19 10:20 IMPRESSION: NO ACUTE RADIOGRAPHIC FINDING IN THE CHEST. Status: Image reviewed by me Assessment & Plan - Diagnosis (1) Kidney cancer, primary, with metastasis from kidney to other site Qualifiers: Laterality: left Qualified Code(s): C64.2 - Malignant neoplasm of left kidney, except renal pelvis Is this a current diagnosis for this admission?: Yes Plan: HOLD Sutent. Unclear if this contributed to current symptoms or not. (2) Nausea & vomiting Qualifiers: Vomiting type: unspecified Vomiting Intractability: unspecified Qualified Code(s): R11.2 - Nausea with vomiting, unspecified Is this a current diagnosis for this admission?: Yes Plan: Improving. Continue supportive care (3) Diverticulitis Is this a current diagnosis for this admission?: Yes Plan: Continue appropriate antibiotics. There is no evidence of neutropenia. His PLT count was low prior to starting treatment. - Plan Summary Plan Summary: Patient was discussed with Dr. Camacho. I reviewed notes extensively.
[2019-05-08] MEDS ORDERED: ENOXAPARIN SODIUM INJ 40 MG/0.4 ML DISP.SYRIN SUBCUT SCH (10:00)
[2019-05-08] MEDS: DOCUSATE SODIUM 100 MG CAPSULE PO SCH ×2 (10:33→17:44)
[2019-05-08] MEDS: CIPROFLOXACIN 400 MG/D5W RTU 400 MG/200 ML RTUPB IV SCH ×2 (10:38→21:17)
[2019-05-08] MEDS: CHOLECALCIFEROL (D3) 1,000 UNIT (25 MCG) TABLET PO SCH (10:38)
[2019-05-08] MEDS: LISINOPRIL 10 MG TABLET PO SCH (10:38)
[2019-05-08] MEDS: MULTIVITAMIN TABLET PO SCH (10:38)
--- NOTE | 2019-05-08 12:47 | PDOC PROGRESS REPORT ---
Subjective Progress Note for:: 05/08/19 Subjective:: Patient complains of about 2-3 episodes of hematochezia since yesterday. Also complains of some discomfort in his chest and stomach when he eats. Regarding patient's hematochezia he describes first episode is having a significant bowel movement and then having some blood in it. However subsequent episodes were mainly blood with very little stool. Denies any shortness of breath, lightheadedness or dizziness. Denies active chest pain. Reason For Visit: ACUTE DIVERTICULITIS Physical Exam Vital Signs: Temp Pulse Resp BP Pulse Ox 98.9 F 87 16 147/84 H 96 05/08/19 11:18 05/08/19 11:18 05/08/19 11:18 05/08/19 11:18 05/08/19 11:18 Intake & Output 05/07/19 05/08/19 05/09/19 06:59 06:59 06:59 Intake Total 3424 1040 Balance 3424 1040 Weight 80.6 kg General appearance: PRESENT: no acute distress, cooperative Neck exam: ABSENT: JVD Respiratory exam: PRESENT: symmetrical, unlabored. ABSENT: tachypnea, wheezes Cardiovascular exam: PRESENT: RRR, +S1, +S2. ABSENT: tachycardia GI/Abdominal exam: PRESENT: soft, tenderness. ABSENT: distended, firm, guarding, rebound, rigid Neurological exam: PRESENT: alert, awake, oriented to person, oriented to place, oriented to time Results Laboratory Results: 05/08/19 05:09 05/08/19 05:09 05/08/19 05/08/19 05:09 05:09 WBC 8.1 RBC 4.45 Hgb 14.5 D Hct 41.0 MCV 92 MCH 32.6 MCHC 35.3 RDW 14.4 H Plt Count 46 L Sodium 131.8 L Potassium 4.1 Chloride 99 Carbon Dioxide 23 Anion Gap 10 BUN 28 H Creatinine 1.56 H Est GFR ( Amer) 52 L Glucose 108 Calcium 8.0 L Total Bilirubin 1.9 H AST 45 Alkaline Phosphatase 72 Total Protein 5.7 L Albumin 3.1 L Impressions: Abdomen/Pelvis CT 05/07/19 10:20 IMPRESSION: Diverticulitis distal descending colon. Chest X-Ray 05/07/19 10:20 IMPRESSION: NO ACUTE RADIOGRAPHIC FINDING IN THE CHEST. Assessment and Plan - Diagnosis (1) Acute diverticulitis Is this a current diagnosis for this admission?: Yes Plan: Recurrent episode. CT imaging results reviewed by me showing extensive diverticulosis and diverticulitis involving the sigmoid colon. Empiric antibiotics treatment with ciprofloxacin and Flagyl Antiemetics liquid diet and escalate as tolerated Pain control with Tylenol. Morphine for breakthrough pain. (2) Diverticular hemorrhage Is this a current diagnosis for this admission?: Yes Plan: Patient now experiencing hematochezia and his description of mostly blood with very little stool with high suspicion for diverticular bleed likely provoked by acute diverticulitis. If he continues to persist, will have surgery evaluate patient to see if need for endoscopy. Monitor vital signs. Type and screen. (3) Acute renal failure (ARF) Qualifiers: Acute renal failure type: unspecified Qualified Code(s): N17.9 - Acute kidney failure, unspecified Is this a current diagnosis for this admission?: Yes Plan: secondary to dehydration from decreased p.o. intake IV fluid hydration and encourage p.o. hydration, nausea control. Improving with IV fluids. 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 Reports metastasis to left hip as well as ribs s/p radiation. Currently on oral chemo daily with Sunitinib. Consult oncology [primary is Dr. Bocanegra] regarding if ok to continue chemo during acute infection. (5) Indirect hyperbilirubinemia Is this a current diagnosis for this admission?: Yes Plan: Hyperbilirubinemia is mild but mostly indirect bilirubin I suspect this may be secondary to increased RBC turnover from polycythemia associated with renal cell cancer. I will simply monitor for now. (6) Chemotherapy-induced thrombocytopenia Is this a current diagnosis for this admission?: Yes Plan: Secondary to sunitinib. Monitor CBC. DC Lovenox prophylaxis given platelet count below 50. SCDs. (7) Hypothyroidism Is this a current diagnosis for this admission?: Yes Plan: Continue Synthroid - Time Time Spent with patient: 15-24 minutes
--- NOTE | 2019-05-08 13:56 | PDOC CONSULTATION ---
Consultation Consult Date: 05/08/19 Attending physician:: JUAN DIEGO RUSH Provider Consulted: WILLA HOLM Consult reason:: diverticular vs hemorrhoidal bleed. History of Present Illness Admission Date/PCP: 05/07/19 12:30 MIKAELA ARRIOLA MD History of Present Illness: SHERI ROSS is a 79 year old malePatient has also been experiencing left lower quadrant pain with radiation to lower mid abdomen which he describes as a sharp pain not associated with food intake. Recently, he has been having constipation and notes improved abdominal pain when he has a bowel movement. No no other specific aggravating factors. First episode of diverticulitis was last year in October. Denies fever chills. And with being diagnosed with diverticulitis that he had for bloody bowel movements and there was concern for bleeding reticula in addition to the recent diagnosis of diverticulitis. He was consulted for possible bleeding diverticulosis versus hemorrhoidal bleeding. Currently this morning the patient had a large BM with only minimal amount of blood and he just notes a small amount on the tissue paper after he wipes he does not note further clots after bowel movement. Past Medical History Cardiac Medical History: Reports: Coronary Artery Disease - HIGH CHOL, Myocardial Infarction - [place] 25Years Ago, Hyperlipidema, Hypertension Pulmonary Medical History: Denies: Asthma, Bronchitis, Chronic Obstructive Pulmonary Disease (COPD), Pneumonia EENT Medical History: Reports: Other - Thrombocytopenia Neurological Medical History: Denies: Seizures Malignancy Medical History: Reports: Renal (Kidney) Cancer - with bone mets. Musculoskeltal Medical History: Reports: Arthritis Hematology: Reports: Other - Thrombocytopenia Denies: Anemia Past Surgical History Past Surgical History: Reports: Cardiac Catheterization, Coronary Artery Bypass Graft - 1993, Orthopedic Surgery - biposy, Other - colonoscopy 2018, hemorrhoidectomy Denies: Pacemaker Social History Lives with: Family Smoking Status: Never Smoker Electronic Cigarette use?: No Number of Years Smokin Last Time Smoked: 1963 Frequency of Alcohol Use: None Hx Recreational Drug Use: No Drugs: None Hx Prescription Drug Abuse: No - Advance Directive Resuscitation Status: Full Code Family History Family History: Hypertension Parental Family History Reviewed: No Children Family History Reviewed: NA Sibling(s) Family History Reviewed.: NA Medication/Allergy Home Medications: Atorvastatin Calcium [Lipitor 40 mg Tablet] 40 mg PO QPM 05/07/19 Calcium Carbonate [Calcium] 500 mg PO DAILY 05/07/19 Ergocalciferol (Vitamin D2) [Vitamin D] 400 unit PO QPM 05/07/19 Levothyroxine Sodium [Synthroid 0.1 mg Tablet] 0.1 mg PO Q6AM 05/07/19 Lisinopril [Prinivil] 20 mg PO DAILY 05/07/19 Multivitamin [Daily Multiple Vitamin] 1 each PO DAILY 05/07/19 Ondansetron [Zofran Odt 4 mg Tablet] 8 mg PO Q8HP PRN 05/07/19 Promethazine HCl [Phenergan 25 mg Tablet] 25 mg PO Q4HP PRN 05/07/19 Ranitidine HCl [Zantac] 300 mg PO QHS 05/07/19 Sunitinib Malate [Sutent] 50 mg PO DAILY 05/07/19 Tamsulosin HCl [Flomax] 0.4 mg PO QPM 05/07/19 Allergies/Adverse Reactions: Penicillins Allergy (Intermediate, Verified 10/17/18 09:38) Edema aspirin [Aspirin] Adverse Reaction (Mild, Verified 10/17/18 09:38) "UPSET STOMACH" WITH NONENTERIC COATED Review of Systems Constitutional: PRESENT: fatigue Eyes: ABSENT: as per HPI, visual disturbances, other Ears: ABSENT: as per HPI, hearing changes, other Breasts: ABSENT: as per HPI, other Cardiovascular: ABSENT: as per HPI, chest pain, dyspnea on exertion, edema, orthropnea, palpitations, other Respiratory: ABSENT: as per HPI, cough, dyspnea, hemoptysis, sputum, other Gastrointestinal: PRESENT: bloating, constipation, hematochezia Genitourinary: ABSENT: as per HPI, difficulty urinating, dysuria, hematuria, nocturia, other Musculoskeletal: PRESENT: as per HPI Integumentary: ABSENT: rash, wounds Neurological: ABSENT: abnormal gait, abnormal speech, confusion, dizziness, focal weakness, syncope Psychiatric: ABSENT: anxiety, depression, homidical ideation, suicidal ideation Endocrine: ABSENT: cold intolerance, heat intolerance, polydipsia, polyuria Hematologic/Lymphatic: ABSENT: easy bleeding, easy bruising Allergic/Immunologic: ABSENT: as per HPI, seasonal rhinorrhea, other Physical Exam Vital Signs: Temp Pulse Resp BP Pulse Ox 98.9 F 87 16 147/84 H 96 05/08/19 11:18 05/08/19 11:18 05/08/19 11:18 05/08/19 11:18 05/08/19 11:18 Intake & Output 05/07/19 05/08/19 05/09/19 06:59 06:59 06:59 Intake Total 3424 1040 Balance 3424 1040 Weight 80.6 kg General appearance: PRESENT: no acute distress Head exam: PRESENT: normocephalic Eye exam: PRESENT: EOMI Ear exam: PRESENT: normal external ear exam Mouth exam: PRESENT: moist Neck exam: PRESENT: full ROM Respiratory exam: PRESENT: clear to auscultation autumn Cardiovascular exam: PRESENT: RRR Pulses: PRESENT: normal femoral pulses, normal dorsalis pedis pul Vascular exam: PRESENT: normal capillary refill GI/Abdominal exam: PRESENT: soft, other - Minimal tenderness in epigastrium to deep palpation Rectal exam: PRESENT: deferred Extremities exam: PRESENT: full ROM Musculoskeletal exam: PRESENT: full ROM Neurological exam: PRESENT: alert, awake, oriented to person, oriented to place Psychiatric exam: PRESENT: appropriate affect Skin exam: PRESENT: dry Results Laboratory Results: 05/08/19 05:09 05/08/19 05:09 05/08/19 05/08/19 05:09 05:09 WBC 8.1 RBC 4.45 Hgb 14.5 D Hct 41.0 MCV 92 MCH 32.6 MCHC 35.3 RDW 14.4 H Plt Count 46 L Sodium 131.8 L Potassium 4.1 Chloride 99 Carbon Dioxide 23 Anion Gap 10 BUN 28 H Creatinine 1.56 H Est GFR ( Amer) 52 L Glucose 108 Calcium 8.0 L Total Bilirubin 1.9 H AST 45 Alkaline Phosphatase 72 Total Protein 5.7 L Albumin 3.1 L Impressions: Abdomen/Pelvis CT 05/07/19 10:20 IMPRESSION: Diverticulitis distal descending colon. Chest X-Ray 05/07/19 10:20 IMPRESSION: NO ACUTE RADIOGRAPHIC FINDING IN THE CHEST. Assessment & Plan - Plan Summary Plan Summary: 8 impression is an 79-year-old male who was admitted with diagnosis of diverticulitis confirmed by CAT scan done in the emergency room yesterday. Patient has recent diagnosis of renal carcinoma and is been on chemotherapy by Dr. Ardon for that. Patient had a initial hemoglobin upon admission of 17 which is dropped to 14 over the last 24 hours. I suspect that his bleeding is most likely hemorrhoidal and not diverticular which is very rare and patient also has diverticulitis Patient is thrombocytopenic. The platelet count of 47. Recommendations 1. Would hold his regular diet at this point and allow clear liquid diet. 2. Consider transfusion for his thrombocytopenia. 3. Surgery will continue to follow for ongoing lower GI bleeding.
[2019-05-08] MEDS: MAG HYDROX/AL HYDROX/SIMETH SUSP 30 ML UDCUP PO SCH ×2 (14:03→17:46)
[2019-05-08] MEDS ORDERED: NORMAL SALINE 250 ML IV PRN ×2 (14:03)
[2019-05-08] MEDS: TAMSULOSIN HCL 0.4 MG CAP.SR.24H PO SCH (17:46)
[2019-05-08 19:45] LABS: HEMOGLOBIN 13.6 g/dL (13.5-17.0); MEAN CORPUSCULAR HEMOGLOBIN 32.7 pg (27.0-33.4); MEAN CORPUSCULAR HGB CONC 35.6 g/dL (32.0-36.0); MEAN CORPUSCULAR VOLUME 92 fl (80-97); RED BLOOD COUNT 4.15 10^6/uL (4.35-5.55); RED CELL DISTRIBUTION WIDTH 14.8 % (11.5-14.0)
[2019-05-08 20:01] LABS: PLATELET COUNT 63 10^3/uL (150-450)
[2019-05-08] MEDS: ATORVASTATIN CALCIUM 40 MG TABLET PO SCH (21:17)
[2019-05-08] MEDS: FAMOTIDINE 20 MG TABLET PO SCH (21:17)
[2019-05-09] MEDS: LEVOTHYROXINE SODIUM 0.1 MG TABLET PO SCH (06:03)
[2019-05-09] MEDS: METRONIDAZOLE 500 MG TABLET PO SCH (06:03)
[2019-05-09 06:50] LABS: HEMATOCRIT 36.8 % (37.9-51.0); MEAN CORPUSCULAR HEMOGLOBIN 32.6 pg (27.0-33.4); MEAN CORPUSCULAR HGB CONC 35.3 g/dL (32.0-36.0); MEAN CORPUSCULAR VOLUME 92 fl (80-97); RED BLOOD COUNT 3.99 10^6/uL (4.35-5.55); RED CELL DISTRIBUTION WIDTH 14.5 % (11.5-14.0); WHITE BLOOD COUNT 5.9 10^3/uL (4.0-10.5)
[2019-05-09 07:07] LABS: PLATELET COUNT 58 10^3/uL (150-450)
[2019-05-09 07:11] LABS: ANION GAP 9 (5-19); BLOOD UREA NITROGEN 21 mg/dL (7-20); CALCIUM 7.4 mg/dL (8.4-10.2); CARBON DIOXIDE 22 mmol/L (22-30); CHLORIDE 99 mmol/L (98-107); GLUCOSE 105 mg/dL (75-110)
[2019-05-09] MEDS: MAG HYDROX/AL HYDROX/SIMETH SUSP 30 ML UDCUP PO SCH ×3 (09:16→18:10)
[2019-05-09] MEDS: DOCUSATE SODIUM 100 MG CAPSULE PO SCH ×2 (09:17→18:08)
[2019-05-09] MEDS: LISINOPRIL 10 MG TABLET PO SCH (09:18)
[2019-05-09] MEDS: CIPROFLOXACIN 400 MG/D5W RTU 400 MG/200 ML RTUPB IV SCH ×2 (09:18→22:18)
[2019-05-09] MEDS: CALCIUM CARBONATE 500 MG TABLET PO SCH ×2 (09:18→18:16)
[2019-05-09] MEDS: MULTIVITAMIN TABLET PO SCH (09:19)
[2019-05-09] MEDS: CHOLECALCIFEROL (D3) 1,000 UNIT (25 MCG) TABLET PO SCH (09:19)
[2019-05-09] MEDS ORDERED: MAG HYDROX/AL HYDROX/SIMETH SUSP 30 ML UDCUP PO PRN (10:19)
--- NOTE | 2019-05-09 10:32 | PDOC PROGRESS REPORT ---
Subjective Progress Note for:: 05/09/19 Subjective:: c/o heartburn and epigastric pain, semiliquid stools this morning, no blood noted Reason For Visit: ACUTE DIVERTICULITIS Physical Exam Vital Signs: Temp Pulse Resp BP Pulse Ox 98.5 F 83 18 136/74 H 97 05/09/19 08:00 05/09/19 08:00 05/09/19 08:00 05/09/19 08:00 05/09/19 08:00 Intake & Output 05/08/19 05/09/19 05/10/19 06:59 06:59 06:59 Intake Total 3424 2622 Balance 3424 2622 Weight 80.6 kg 83.1 kg General appearance: PRESENT: no acute distress Respiratory exam: PRESENT: chest wall tenderness Cardiovascular exam: PRESENT: RRR GI/Abdominal exam: PRESENT: normal bowel sounds, soft, tenderness - Left lower quadrant Results Laboratory Results: 05/09/19 06:13 05/09/19 06:13 05/08/19 05/08/19 05/09/19 14:58 19:32 06:13 WBC 7.0 5.9 RBC 4.15 L 3.99 L Hgb 13.6 13.0 L Hct 38.0 36.8 L MCV 92 92 MCH 32.7 32.6 MCHC 35.6 35.3 RDW 14.8 H 14.5 H Plt Count 63 L 58 L Sodium Potassium Chloride Carbon Dioxide Anion Gap BUN Creatinine Est GFR ( Amer) Glucose Calcium Blood Type A NEGATIVE Antibody Screen NEGATIVE 05/09/19 06:13 WBC RBC Hgb Hct MCV MCH MCHC RDW Plt Count Sodium 130.3 L Potassium 4.0 Chloride 99 Carbon Dioxide 22 Anion Gap 9 BUN 21 H Creatinine 1.38 H Est GFR ( Amer) > 60 Glucose 105 Calcium 7.4 L Blood Type Antibody Screen Impressions: Abdomen/Pelvis CT 05/07/19 10:20 IMPRESSION: Diverticulitis distal descending colon. Chest X-Ray 05/07/19 10:20 IMPRESSION: NO ACUTE RADIOGRAPHIC FINDING IN THE CHEST. Assessment & Plan - Diagnosis (1) Bleeding hemorrhoids Is this a current diagnosis for this admission?: Yes (2) Heartburn symptom Is this a current diagnosis for this admission?: Yes (3) Acute diverticulitis Is this a current diagnosis for this admission?: Yes - Time Time Spent with patient: 15-24 minutes - Plan Summary Plan Summary: Assessment: Sigmoid acute diverticulitis, treated with IV Cipro and oral Flagyl Acute diverticulitis symptoms improved Patient complaining of epigastric pain and severe heartburn following ingestion of a Flagyl pill this morning H&H overall stable today (13 and 36.8, respectively compared to 13 and 38 yesterday) The patient reports semiliquid stools today without blood noted Persistent thrombocytopenia 58 today, most likely secondary to the oral chemotherapy currently on hold Plan: Change Flagyl from oral to IV to improve the efficacy of antibiotic Start heartburn treatment with IV PPI, frequent Maalox administration, and Carafate Advance diet to full liquid diet to minimize the heartburn and acid reflux No acute general surgery issues identified, no procedure planned at this time
[2019-05-09] MEDS: PANTOPRAZOLE SODIUM 40 MG VIAL IV SCH ×2 (13:15→22:18)
[2019-05-09] MEDS: METRONIDAZOLE 500 MG/NS RTU 500 MG/100 ML RTUPB IV SCH ×2 (13:15→18:11)
[2019-05-09] MEDS: SUCRALFATE 1 GM TABLET PO SCH ×3 (13:16→22:18)
--- NOTE | 2019-05-09 14:07 | PDOC PROGRESS REPORT ---
Subjective Subjective:: Patient complaining of heartburn today. Noted upon eating and this morning when he swallowed a pill. Patient denies any bloody stool today. Overall still having some abdominal pain but denies any fever chills or malaise. Reason For Visit: ACUTE DIVERTICULITIS Physical Exam Vital Signs: Temp Pulse Resp BP Pulse Ox 98.5 F 83 18 136/74 H 97 05/09/19 08:00 05/09/19 08:00 05/09/19 08:00 05/09/19 08:00 05/09/19 08:00 Intake & Output 05/08/19 05/09/19 05/10/19 06:59 06:59 06:59 Intake Total 3424 2622 Balance 3424 2622 Weight 80.6 kg 83.1 kg General appearance: PRESENT: no acute distress, cooperative Neck exam: ABSENT: JVD Respiratory exam: PRESENT: clear to auscultation autumn, unlabored. ABSENT: tachypnea, wheezes Cardiovascular exam: PRESENT: RRR, +S1, +S2. ABSENT: tachycardia GI/Abdominal exam: PRESENT: normal bowel sounds, soft, tenderness. ABSENT: distended, firm, guarding, rebound, rigid Extremities exam: ABSENT: +1 edema Neurological exam: PRESENT: alert, awake, oriented to person, oriented to place, oriented to time Results Laboratory Results: 05/09/19 06:13 05/09/19 06:13 05/08/19 05/08/19 05/09/19 14:58 19:32 06:13 WBC 7.0 5.9 RBC 4.15 L 3.99 L Hgb 13.6 13.0 L Hct 38.0 36.8 L MCV 92 92 MCH 32.7 32.6 MCHC 35.6 35.3 RDW 14.8 H 14.5 H Plt Count 63 L 58 L Sodium Potassium Chloride Carbon Dioxide Anion Gap BUN Creatinine Est GFR ( Amer) Glucose Calcium Blood Type A NEGATIVE Antibody Screen NEGATIVE 05/09/19 06:13 WBC RBC Hgb Hct MCV MCH MCHC RDW Plt Count Sodium 130.3 L Potassium 4.0 Chloride 99 Carbon Dioxide 22 Anion Gap 9 BUN 21 H Creatinine 1.38 H Est GFR ( Amer) > 60 Glucose 105 Calcium 7.4 L Blood Type Antibody Screen 05/07/19 09:31 Clean Catch Midstream Urine Culture - Final Mixed Urogenital Varsha Impressions: Abdomen/Pelvis CT 05/07/19 10:20 IMPRESSION: Diverticulitis distal descending colon. Chest X-Ray 05/07/19 10:20 IMPRESSION: NO ACUTE RADIOGRAPHIC FINDING IN THE CHEST. Assessment and Plan - Diagnosis (1) Acute diverticulitis Is this a current diagnosis for this admission?: Yes Plan: Recurrent episode. Sigmoid diverticulitis. ciprofloxacin and Flagyl day 3 Antiemetics Full liquid diet and escalate as tolerated Pain control with Tylenol. Morphine for breakthrough pain. (2) Lower GI bleed Is this a current diagnosis for this admission?: Yes Plan: Likely secondary to bleeding external hemorrhoid and some diverticular bleed Patient was transfused a unit of platelets yesterday given thrombocytopenia below 50k Last bowel movement was free of blood Continue to monitor H&H Surgery consulted yesterday and recommended conservative approach for now which I agree with. (3) Acute renal failure (ARF) Qualifiers: Acute renal failure type: unspecified Qualified Code(s): N17.9 - Acute kidney failure, unspecified Is this a current diagnosis for this admission?: Yes Plan: 2/2 dehydration from decreased p.o. intake Improving with fluids now seems to be around baseline. IV fluids discontinued. Encourage p.o. hydration. 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 Reports metastasis to left hip as well as ribs s/p radiation. On oral chemo daily with Sunitinib at home. Oncology following [primary is Dr. Bocanegra]: Okay to hold Sunitinib in light of acute infection. (5) Indirect hyperbilirubinemia Is this a current diagnosis for this admission?: Yes Plan: Hyperbilirubinemia is mild but mostly indirect bilirubin I suspect this may be secondary to increased RBC turnover associated with renal cell cancer. Stable. (6) Chemotherapy-induced thrombocytopenia Is this a current diagnosis for this admission?: Yes Plan: Secondary to sunitinib. Monitor CBC. SCDs for VT prophylaxis. Received 1 unit of platelets 05/08/2019. (7) Hypothyroidism Qualifiers: Hypothyroidism type: acquired Qualified Code(s): E03.9 - Hypothyroidism, unspecified Is this a current diagnosis for this admission?: Yes Plan: Continue Synthroid (8) GERD (gastroesophageal reflux disease) Qualifiers: Esophagitis presence: esophagitis presence not specified Qualified Code(s): K21.9 - Gastro-esophageal reflux disease without esophagitis Is this a current diagnosis for this admission?: Yes Plan: Maalox. Protonix. - Time Time Spent with patient: 15-24 minutes
--- NOTE | 2019-05-09 17:48 | PDOC PROGRESS REPORT ---
Subjective Progress Note for:: 05/09/19 Subjective:: Patient is seen with his brother at bedside. He states that his stools are still loose, but have improved. Only 1 recent BM with a little blood, thought to be from hemorrhoids. He is still only taking in clear liquids, but believes he is strong enough to try to walk in the [place] later today. ROS: No dyapnea. Some abdominal cramping. Reason For Visit: ACUTE DIVERTICULITIS Physical Exam Vital Signs: Temp Pulse Resp BP Pulse Ox 98.5 F 83 18 136/74 H 97 05/09/19 08:00 05/09/19 08:00 05/09/19 08:00 05/09/19 08:00 05/09/19 08:00 Intake & Output 05/08/19 05/09/19 05/10/19 06:59 06:59 06:59 Intake Total 3424 2622 Balance 3424 2622 Weight 80.6 kg 83.1 kg General appearance: PRESENT: no acute distress, well-developed, well-nourished Head exam: PRESENT: normocephalic Eye exam: PRESENT: EOMI Respiratory exam: PRESENT: unlabored Neurological exam: PRESENT: alert, awake, oriented to person, oriented to place, oriented to time, oriented to situation Psychiatric exam: PRESENT: appropriate affect Skin exam: PRESENT: normal color Results Laboratory Results: 05/09/19 06:13 05/09/19 06:13 05/08/19 05/09/19 05/09/19 19:32 06:13 06:13 WBC 7.0 5.9 RBC 4.15 L 3.99 L Hgb 13.6 13.0 L Hct 38.0 36.8 L MCV 92 92 MCH 32.7 32.6 MCHC 35.6 35.3 RDW 14.8 H 14.5 H Plt Count 63 L 58 L Sodium 130.3 L Potassium 4.0 Chloride 99 Carbon Dioxide 22 Anion Gap 9 BUN 21 H Creatinine 1.38 H Est GFR ( Amer) > 60 Glucose 105 Calcium 7.4 L 05/07/19 09:31 Clean Catch Midstream Urine Culture - Final Mixed Urogenital Varsha Impressions: Abdomen/Pelvis CT 05/07/19 10:20 IMPRESSION: Diverticulitis distal descending colon. Chest X-Ray 05/07/19 10:20 IMPRESSION: NO ACUTE RADIOGRAPHIC FINDING IN THE CHEST. 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 Current symptoms may have been secondary to Sutent, but not sure. (2) Nausea & vomiting Qualifiers: Vomiting type: unspecified Vomiting Intractability: unspecified Qualified Code(s): R11.2 - Nausea with vomiting, unspecified Is this a current diagnosis for this admission?: Yes (3) Diverticulitis Is this a current diagnosis for this admission?: Yes Plan: Continue antibiotics. His diet is being advanced. No indication for colonosco py per surgery at this time. - Time Time Spent with patient: 15-24 minutes
[2019-05-09] MEDS: TAMSULOSIN HCL 0.4 MG CAP.SR.24H PO SCH (18:16)
[2019-05-09] MEDS: ATORVASTATIN CALCIUM 40 MG TABLET PO SCH (22:18)
[2019-05-10] MEDS: METRONIDAZOLE 500 MG/NS RTU 500 MG/100 ML RTUPB IV SCH ×5 (01:07→23:18)
[2019-05-10 05:26] LABS: HEMATOCRIT 37.4 % (37.9-51.0); HEMOGLOBIN 13.5 g/dL (13.5-17.0); MEAN CORPUSCULAR HEMOGLOBIN 33.2 pg (27.0-33.4); MEAN CORPUSCULAR VOLUME 92 fl (80-97); RED BLOOD COUNT 4.05 10^6/uL (4.35-5.55); RED CELL DISTRIBUTION WIDTH 14.6 % (11.5-14.0); WHITE BLOOD COUNT 4.7 10^3/uL (4.0-10.5)
[2019-05-10 05:38] LABS: ANION GAP 6 (5-19); BLOOD UREA NITROGEN 19 mg/dL (7-20); CARBON DIOXIDE 23 mmol/L (22-30); CHLORIDE 100 mmol/L (98-107); GLUCOSE 93 mg/dL (75-110); POTASSIUM 4.6 mmol/L (3.6-5.0)
[2019-05-10 05:58] LABS: PLATELET COUNT 56 10^3/uL (150-450)
[2019-05-10] MEDS: LEVOTHYROXINE SODIUM 0.1 MG TABLET PO SCH (06:10)
[2019-05-10] MEDS: SUCRALFATE 1 GM TABLET PO SCH ×4 (07:45→21:58)
[2019-05-10] MEDS ORDERED: NORMAL SALINE 1000 ML 500 ML IV ONE (08:13)
[2019-05-10] MEDS ORDERED: SODIUM CHLORIDE 1 GM TABLET PO ONE (08:14)
--- NOTE | 2019-05-10 09:00 | PDOC PROGRESS REPORT ---
Subjective Progress Note for:: 05/10/19 Subjective:: The patient is feeling comfortable, he reports minimal nominal discomfort, he has had one episode of diarrhea without blood this morning Reason For Visit: ACUTE DIVERTICULITIS Physical Exam Vital Signs: Temp Pulse Resp BP Pulse Ox 98.9 F 80 18 152/66 H 99 05/09/19 16:00 05/09/19 16:00 05/09/19 16:00 05/09/19 16:00 05/09/19 16:00 Intake & Output 05/09/19 05/10/19 05/11/19 06:59 06:59 06:59 Intake Total 2622 1610 300 Balance 2622 1610 300 Weight 83.1 kg 78.7 kg General appearance: PRESENT: no acute distress Respiratory exam: PRESENT: clear to auscultation autumn Cardiovascular exam: PRESENT: RRR GI/Abdominal exam: PRESENT: normal bowel sounds, soft, other - Slight tenderness in the left lower quadrant Rectal exam: PRESENT: deferred Results Laboratory Results: 05/10/19 04:56 05/10/19 04:56 05/10/19 05/10/19 04:56 04:56 WBC 4.7 RBC 4.05 L Hgb 13.5 Hct 37.4 L MCV 92 MCH 33.2 MCHC 36.0 RDW 14.6 H Plt Count 56 L Sodium 129.4 L Potassium 4.6 Chloride 100 Carbon Dioxide 23 Anion Gap 6 BUN 19 Creatinine 1.35 H Est GFR ( Amer) > 60 Glucose 93 Calcium 8.0 L 05/07/19 09:31 Clean Catch Midstream Urine Culture - Final Mixed Urogenital Varsha Impressions: Abdomen/Pelvis CT 05/07/19 10:20 IMPRESSION: Diverticulitis distal descending colon. Chest X-Ray 05/07/19 10:20 IMPRESSION: NO ACUTE RADIOGRAPHIC FINDING IN THE CHEST. Assessment & Plan - Diagnosis (1) Bleeding hemorrhoids Is this a current diagnosis for this admission?: Yes (2) Heartburn symptom Is this a current diagnosis for this admission?: Yes (3) Acute diverticulitis Is this a current diagnosis for this admission?: Yes - Time Time Spent with patient: 25-34 minutes - Plan Summary Plan Summary: Assessment: Much improved left-sided abdominal pain Much improved appetite, patient on full liquid diet New onset of diarrhea without blood Patient cultures negative Due to the combination of diarrhea, bright red blood per rectum, and abdominal pain, there is a possibility patient is suffering from infectious colitis rather than acute diverticulitis Plan: Send stools for regular culture and C. difficile toxin Advance diet to low residue Continue current regimen of IV antibiotics
[2019-05-10] MEDS: DOCUSATE SODIUM 100 MG CAPSULE PO SCH (09:16)
[2019-05-10] MEDS: MAG HYDROX/AL HYDROX/SIMETH SUSP 30 ML UDCUP PO SCH ×3 (09:32→17:23)
[2019-05-10] MEDS: LISINOPRIL 10 MG TABLET PO SCH (09:32)
[2019-05-10] MEDS: PANTOPRAZOLE SODIUM 40 MG VIAL IV SCH ×2 (09:32→21:59)
[2019-05-10] MEDS: MULTIVITAMIN TABLET PO SCH (09:32)
[2019-05-10] MEDS: CALCIUM CARBONATE 500 MG TABLET PO SCH ×2 (09:32→17:23)
[2019-05-10] MEDS: CHOLECALCIFEROL (D3) 1,000 UNIT (25 MCG) TABLET PO SCH (09:32)
[2019-05-10] MEDS: CIPROFLOXACIN 400 MG/D5W RTU 400 MG/200 ML RTUPB IV SCH ×2 (10:37→21:58)
[2019-05-10] MEDS ORDERED: NORMAL SALINE 1000 ML 750 ML IV PRN (13:23)
--- NOTE | 2019-05-10 13:37 | PDOC PROGRESS REPORT ---
Subjective Progress Note for:: 05/10/19 Subjective:: Patient still having some abdominal pain. Had bowel movements but loose without blood. Still experiencing heartburn and dyspepsia upon eating Reason For Visit: ACUTE DIVERTICULITIS Physical Exam Vital Signs: Temp Pulse Resp BP Pulse Ox 99.1 F 84 21 H 133/67 H 96 05/10/19 07:34 05/10/19 07:34 05/10/19 07:34 05/10/19 07:34 05/10/19 07:34 Intake & Output 05/09/19 05/10/19 05/11/19 06:59 06:59 06:59 Intake Total 2622 1610 860 Balance 2622 1610 860 Weight 83.1 kg 78.7 kg General appearance: PRESENT: no acute distress, cooperative Neck exam: ABSENT: JVD Respiratory exam: PRESENT: clear to auscultation autumn, unlabored. ABSENT: tachypnea, wheezes Cardiovascular exam: PRESENT: RRR, +S1, +S2. ABSENT: tachycardia GI/Abdominal exam: PRESENT: normal bowel sounds, soft, tenderness. ABSENT: distended, firm, guarding, rebound, rigid Extremities exam: ABSENT: pedal edema Neurological exam: PRESENT: alert, awake, oriented to person, oriented to place, oriented to time Results Laboratory Results: 05/10/19 04:56 05/10/19 04:56 05/10/19 05/10/19 05/10/19 04:56 04:56 06:13 WBC 4.7 RBC 4.05 L Hgb 13.5 Hct 37.4 L MCV 92 MCH 33.2 MCHC 36.0 RDW 14.6 H Plt Count 56 L Sodium 129.4 L Potassium 4.6 Chloride 100 Carbon Dioxide 23 Anion Gap 6 BUN 19 Creatinine 1.35 H Est GFR ( Amer) > 60 Glucose 93 Serum Osmolality 270 L Calcium 8.0 L Ur Specific [place] Urine Osmolality 05/10/19 05/10/19 09:45 09:45 WBC RBC Hgb Hct MCV MCH MCHC RDW Plt Count Sodium Potassium Chloride Carbon Dioxide Anion Gap BUN Creatinine Est GFR ( Amer) Glucose Serum Osmolality Calcium Ur Specific [place] 1.019 Urine Osmolality 662 05/07/19 09:31 Clean Catch Midstream Urine Culture - Final Mixed Urogenital Varsha Impressions: Abdomen/Pelvis CT 01/16/20 10:20 IMPRESSION: Diverticulitis distal descending colon. Chest X-Ray 05/07/19 10:20 IMPRESSION: NO ACUTE RADIOGRAPHIC FINDING IN THE CHEST. Assessment and Plan - Diagnosis (1) Acute diverticulitis Is this a current diagnosis for this admission?: Yes Plan: Recurrent episode. Sigmoid diverticulitis. ciprofloxacin and Flagyl day 4 Antiemetics Diet escalated today to low residue by surgery. Surgicalist suspecting component of infectious colitis rather than diverticulitis. Pain control with Tylenol. Morphine for breakthrough pain. Colace held as patient is no longer constipated and now having loose stools (2) Hyponatremia with decreased serum osmolality Is this a current diagnosis for this admission?: Yes Plan: Sodium has been downtrending since admission despite improvement of renal failure Volume status assessment shows no evidence of fluid overload and not much to suggest hypovolemia. Osmolar gap is 0. Urine sodium and urine osmolarity are very much elevated despite hyponatremia -I will give 1.25 L of normal saline and 1g salt tablet today and recheck urine sodium and osmolarity tomorrow to see if SIADH vs hypovolemia -check tsh in am (3) Lower GI bleed Is this a current diagnosis for this admission?: Yes Plan: Resolved Possibly external hemorrhoids, potential of diverticulosis. Continue Anusol. H&H stable. (4) Acute renal failure (ARF) Qualifiers: Acute renal failure type: unspecified Qualified Code(s): N17.9 - Acute kidney failure, unspecified Is this a current diagnosis for this admission?: Yes Plan: Secondary to dehydration on presentation but now resolved. Creatinine trended down and now stable. 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 Reports metastasis to left hip as well as ribs s/p radiation. On oral chemo daily with Sunitinib at home. Oncology following [primary is Dr. Bocanegra]: Okay to hold Sunitinib in light of acute infection. (6) Indirect hyperbilirubinemia Is this a current diagnosis for this admission?: Yes (7) Chemotherapy-induced thrombocytopenia Is this a current diagnosis for this admission?: Yes (8) Hypothyroidism Qualifiers: Hypothyroidism type: acquired Qualified Code(s): E03.9 - Hypothyroidism, unspecified Is this a current diagnosis for this admission?: Yes Plan: Continue Synthroid (9) GERD (gastroesophageal reflux disease) Qualifiers: Esophagitis presence: esophagitis presence not specified Qualified Code(s): K21.9 - Gastro-esophageal reflux disease without esophagitis Is this a current diagnosis for this admission?: Yes Plan: Maalox. Protonix. - Time Time Spent with patient: 15-24 minutes
[2019-05-10 15:26] LABS: ANION GAP 8 (5-19); BLOOD UREA NITROGEN 20 mg/dL (7-20); CALCIUM 7.3 mg/dL (8.4-10.2); CARBON DIOXIDE 22 mmol/L (22-30); CHLORIDE 99 mmol/L (98-107); GLUCOSE 102 mg/dL (75-110); POTASSIUM 4.4 mmol/L (3.6-5.0)
[2019-05-10 15:37] LABS: C DIFFICILE GDH NEGATIVE (NEGATIVE)
[2019-05-10] MEDS: TAMSULOSIN HCL 0.4 MG CAP.SR.24H PO SCH (17:23)
[2019-05-10] MEDS: ATORVASTATIN CALCIUM 40 MG TABLET PO SCH (21:58)
[2019-05-11] MEDS: METRONIDAZOLE 500 MG/NS RTU 500 MG/100 ML RTUPB IV SCH ×2 (05:03→11:58)
[2019-05-11] MEDS: LEVOTHYROXINE SODIUM 0.1 MG TABLET PO SCH (05:03)
[2019-05-11 07:28] LABS: ANION GAP 7 (5-19); BLOOD UREA NITROGEN 18 mg/dL (7-20); CALCIUM 7.3 mg/dL (8.4-10.2); CARBON DIOXIDE 20 mmol/L (22-30); CHLORIDE 103 mmol/L (98-107); GLUCOSE 93 mg/dL (75-110); POTASSIUM 4.2 mmol/L (3.6-5.0)
[2019-05-11] MEDS: SUCRALFATE 1 GM TABLET PO SCH ×2 (07:36→11:46)
[2019-05-11 07:43] LABS: HEMATOCRIT 34.6 % (37.9-51.0); HEMOGLOBIN 12.3 g/dL (13.5-17.0); MEAN CORPUSCULAR HEMOGLOBIN 33.1 pg (27.0-33.4); MEAN CORPUSCULAR HGB CONC 35.6 g/dL (32.0-36.0); MEAN CORPUSCULAR VOLUME 93 fl (80-97); RED BLOOD COUNT 3.72 10^6/uL (4.35-5.55); RED CELL DISTRIBUTION WIDTH 15.2 % (11.5-14.0); WHITE BLOOD COUNT 3.5 10^3/uL (4.0-10.5)
--- NOTE | 2019-05-11 08:17 | PDOC PROGRESS REPORT ---
Subjective Progress Note for:: 05/11/19 Subjective:: Patient seems clinically better, still had one episode of diarrhea yesterday, tolerating low residual diet well, getting up with minimal assist Reason For Visit: ACUTE DIVERTICULITIS Physical Exam Vital Signs: Temp Pulse Resp BP Pulse Ox 98.5 F 91 17 120/56 L 96 05/10/19 23:58 05/10/19 23:58 05/10/19 23:58 05/10/19 23:58 05/10/19 23:58 Intake & Output 05/10/19 05/11/19 05/12/19 06:59 06:59 06:59 Intake Total 1610 1700 Balance 1610 1700 Weight 78.7 kg 85.8 kg General appearance: PRESENT: no acute distress, well-developed, well-nourished Head exam: PRESENT: atraumatic, normocephalic Eye exam: PRESENT: conjunctiva pink, EOMI, PERRLA. ABSENT: scleral icterus Ear exam: PRESENT: normal external ear exam Mouth exam: PRESENT: moist, tongue midline Neck exam: ABSENT: carotid bruit, JVD, lymphadenopathy, thyromegaly Respiratory exam: PRESENT: clear to auscultation autumn. ABSENT: rales, rhonchi, wheezes Cardiovascular exam: PRESENT: RRR. ABSENT: diastolic murmur, rubs, systolic murmur Pulses: PRESENT: normal dorsalis pedis pul Vascular exam: PRESENT: normal capillary refill GI/Abdominal exam: PRESENT: normal bowel sounds, soft. ABSENT: distended, guarding, mass, organolmegaly, rebound, tenderness Rectal exam: PRESENT: deferred Extremities exam: PRESENT: full ROM. ABSENT: calf tenderness, clubbing, pedal edema Neurological exam: PRESENT: alert, awake, oriented to person, oriented to place, oriented to time, oriented to situation, CN II-XII grossly intact. ABSENT: motor sensory deficit Psychiatric exam: PRESENT: appropriate affect, normal mood. ABSENT: homicidal ideation, suicidal ideation Skin exam: PRESENT: dry, intact, warm. ABSENT: cyanosis, rash Results Laboratory Results: 05/11/19 06:44 05/10/19 05/10/19 05/10/19 06:13 09:45 09:45 Sodium Potassium Chloride Carbon Dioxide Anion Gap BUN Creatinine Est GFR ( Amer) Glucose Serum Osmolality 270 L Calcium TSH Ur Specific [place] 1.019 Urine Osmolality 662 05/10/19 05/11/19 05/11/19 14:47 06:44 06:44 Sodium 128.5 L 130.1 L Potassium 4.4 4.2 Chloride 99 103 Carbon Dioxide 22 20 L Anion Gap 8 7 BUN 20 18 Creatinine 1.31 H 1.31 H Est GFR ( Amer) > 60 > 60 Glucose 102 93 Serum Osmolality Calcium 7.3 L 7.3 L TSH 5.20 H Ur Specific [place] Urine Osmolality Impressions: Abdomen/Pelvis CT 05/07/19 10:20 IMPRESSION: Diverticulitis distal descending colon. Chest X-Ray 05/07/19 10:20 IMPRESSION: NO ACUTE RADIOGRAPHIC FINDING IN THE CHEST. 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 - Time Time Spent with patient: 15-24 minutes
[2019-05-11 08:32] LABS: PLATELET COUNT 54 10^3/uL (150-450)
--- NOTE | 2019-05-11 09:40 | PDOC PROGRESS REPORT ---
Subjective Progress Note for:: 05/11/19 Subjective:: Patient is comfortable, denies abdominal pain, reports a large bowel movement with soft stools and no blood today, tolerating p.o. well Reason For Visit: ACUTE DIVERTICULITIS Physical Exam Vital Signs: Temp Pulse Resp BP Pulse Ox 98.6 F 93 19 108/70 97 05/11/19 07:29 05/11/19 07:29 05/11/19 07:29 05/11/19 07:29 05/11/19 07:29 Intake & Output 05/10/19 05/11/19 05/12/19 06:59 06:59 06:59 Intake Total 1610 1700 Balance 1610 1700 Weight 78.7 kg 85.8 kg General appearance: PRESENT: no acute distress Respiratory exam: PRESENT: clear to auscultation autumn Cardiovascular exam: PRESENT: RRR GI/Abdominal exam: PRESENT: soft, tenderness - Minimal in the lower quadrants Results Laboratory Results: 05/11/19 06:44 05/11/19 06:44 05/10/19 05/10/19 05/10/19 09:45 09:45 14:47 WBC RBC Hgb Hct MCV MCH MCHC RDW Plt Count Sodium 128.5 L Potassium 4.4 Chloride 99 Carbon Dioxide 22 Anion Gap 8 BUN 20 Creatinine 1.31 H Est GFR ( Amer) > 60 Glucose 102 Calcium 7.3 L Albumin TSH Ur Specific [place] 1.019 Urine Osmolality 662 05/11/19 05/11/19 05/11/19 06:44 06:44 06:44 WBC 3.5 L RBC 3.72 L Hgb 12.3 L Hct 34.6 L MCV 93 MCH 33.1 MCHC 35.6 RDW 15.2 H Plt Count 54 L Sodium 130.1 L Potassium 4.2 Chloride 103 Carbon Dioxide 20 L Anion Gap 7 BUN 18 Creatinine 1.31 H Est GFR ( Amer) > 60 Glucose 93 Calcium 7.3 L Albumin TSH 5.20 H Ur Specific [place] Urine Osmolality 05/11/19 06:44 WBC RBC Hgb Hct MCV MCH MCHC RDW Plt Count Sodium Potassium Chloride Carbon Dioxide Anion Gap BUN Creatinine Est GFR ( Amer) Glucose Calcium Albumin 2.6 L TSH Ur Specific [place] Urine Osmolality Impressions: Abdomen/Pelvis CT 05/07/19 10:20 IMPRESSION: Diverticulitis distal descending colon. Chest X-Ray 05/07/19 10:20 IMPRESSION: NO ACUTE RADIOGRAPHIC FINDING IN THE CHEST. Assessment & Plan - Diagnosis (1) Bleeding hemorrhoids Is this a current diagnosis for this admission?: Yes (2) Heartburn symptom Is this a current diagnosis for this admission?: Yes (3) Acute diverticulitis Is this a current diagnosis for this admission?: Yes - Time Time Spent with patient: 25-34 minutes - Plan Summary Plan Summary: Assessment: Resolved acute sigmoid diverticulitis Minimal if any lower abdominal pain Bowel function returned Diet tolerated White blood cell count 3.5 Thrombocytopenia 54 Plan: Patient can be discharged to home anytime by the general surgery viewpoint Low residue diet (no vegetables or fruit) for 3 weeks Patient should be discharged home on a 10-day course of oral antibiotics such as Bactrim and clindamycin Follow-up with the surgery office in 2 weeks Follow-up with his primary care physician within 1 to 2 weeks The patient will need to have a colonoscopy in 4 to 5 months Activities as tolerated, patient can shower I will sign off, please call us with questions
[2019-05-11] MEDS: LISINOPRIL 10 MG TABLET PO SCH (10:35)
[2019-05-11] MEDS: CALCIUM CARBONATE 500 MG TABLET PO SCH (10:45)
[2019-05-11] MEDS: MAG HYDROX/AL HYDROX/SIMETH SUSP 30 ML UDCUP PO SCH (10:45)
[2019-05-11] MEDS: MULTIVITAMIN TABLET PO SCH (10:45)
[2019-05-11] MEDS: PANTOPRAZOLE SODIUM 40 MG VIAL IV SCH (10:46)
[2019-05-11] MEDS: CHOLECALCIFEROL (D3) 1,000 UNIT (25 MCG) TABLET PO SCH (10:46)
[2019-05-11] MEDS: CIPROFLOXACIN 400 MG/D5W RTU 400 MG/200 ML RTUPB IV SCH (10:46)
[2019-05-11 12:36] VITALS: BP 127/62
--- NOTE | 2019-05-11 13:07 | PDOC DISCHARGE SUMMARY ---
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 intake and dehydration. Patient was hemodynamically stable throughout stay. FOZIA resolved with IV fluids. Patient was started on ciprofloxacin and Flagyl for treatment of diverticulitis. Of note C. difficile was negative. Patient was initiated on clear liquids but his diet was advanced and he tolerated regular oral diet. Patient has received 4 days of treatment with ciprofloxacin and Flagyl and he has been continued on Bactrim [ciprofloxacin stopped because of medication induced SIADH as evidenced by elevated urine osmolarity and sodium despite IV fluids] and Flagyl p.o. for 5 more days to complete a 9-day course of treatment for diverticulitis. During patient stay, he also still experiencing lower GI bleed which was thought to be secondary to external hemorrhoids which he has a history of on prior colonoscopy as well as potential diverticular bleed from his extensive diverti culosis. Surgery was consulted but patient did not need colonoscopy and his GI bleed resolved after transfusion of 1 unit of platelets given significant thrombocytopenia below 50 K. Patient's hemoglobin has been stable. Patient has been started on Anusol rectally for treatment of his hemorrhoids. Of note, patient's thrombocytopenia was thought to be secondary to Sutent chemotherapy for his metastatic renal malignancy which has been held by recommendation of oncology in light of acute infection. Patient has been instructed not to resume Sutent until he follows up with Dr. Arauz in the clinic. Patient has also been placed on Protonix for treatment of GERD which he complained of heartburn several times. He is to continue taking this along with his ranitidine. Patient is being discharged in safe stable conditions with the appropriate follow-ups. - Additional Information Resuscitation Status: Full Code Discharge Diet: As Tolerated Discharge Activity: Activity As Tolerated Referrals: MIKAELA ARRIOLA MD [Primary Care Provider] - 05/18/19 1:45 pm FREDERICK SHARMA MD [ACTIVE STAFF] - 05/14/19 1:30 pm (as previously scheduled. Do not restart Sutent until appt with Dr. Sharma) BRENNA CHAPMAN MD [ACTIVE STAFF] - 05/25/19 9:30 am ([facility] WILL SET UP COLONOSCOPY IN 5 MONTHS) Prescriptions: Hydrocortisone Acetate [Anusol Hc 25 mg Supp.rect] 25 mg AL BIDP PRN #10 supp.rect PRN Reason: Sulfamethoxazole/Trimethoprim [Bactrim Ds Tablet] 1 each PO BID #10 tablet Metronidazole [Flagyl 500 mg Tablet] 500 mg PO TID 5 Days #15 tablet Pantoprazole Sodium [Protonix [address] Tablet] 40 mg PO NOW #30 tablet.dr Home Medications: Atorvastatin Calcium [Lipitor 40 mg Tablet] 40 mg PO QPM 05/07/19 Calcium Carbonate [Calcium] 500 mg PO DAILY 05/07/19 Ergocalciferol (Vitamin D2) [Vitamin D] 400 unit PO QPM 05/07/19 Levothyroxine Sodium [Synthroid 0.1 mg Tablet] 0.1 mg PO Q6AM 05/07/19 Lisinopril [Prinivil] 20 mg PO DAILY 05/07/19 Multivitamin [Daily Multiple Vitamin] 1 each PO DAILY 05/07/19 Ondansetron [Zofran Odt 4 mg Tablet] 8 mg PO Q8HP PRN 05/07/19 Promethazine HCl [Phenergan 25 mg Tablet] 25 mg PO Q4HP PRN 05/07/19 Ranitidine HCl [Zantac] 300 mg PO QHS 05/07/19 Tamsulosin HCl [Flomax] 0.4 mg PO QPM 05/07/19 Acetaminophen [Tylenol 325 mg Tablet] 650 mg PO Q6HP PRN tablet 05/11/19 Hydrocortisone Acetate [Anusol Hc 25 mg Supp.rect] 25 mg AL BIDP PRN #10 supp.rect 05/11/19 Metronidazole [Flagyl 500 mg Tablet] 500 mg PO TID 5 Days #15 tablet 05/11/19 Pantoprazole Sodium [Protonix [address] Tablet] 40 mg PO NOW #30 tablet.dr 05/11/19 Sulfamethoxazole/Trimethoprim [Bactrim Ds Tablet] 1 each PO BID #10 tablet 05/11/19 History of Present Illiness History of Present Illness: SHERI ROSS is a 79 year old male with a diverticulitis, 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 Patient has been experiencing nausea since beginning of this month. Symptoms have not progressed in the past 2 to 3 days now associated with multiple episodes of vomiting and difficulty keeping down oral food. Patient has also been experiencing left lower quadrant pain with radiation to lower mid abdomen which he describes as a sharp pain not associated with food intake. Recently, he has been having constipation and notes improved abdominal pain when he has a bowel movement. No no other specific aggravating factors. First episode of diverticulitis was last year in October. Denies fever chills. Physical Exam Vital Signs: Temp Pulse Resp BP Pulse Ox 98.4 F 86 16 127/62 H 97 05/11/19 11:36 05/11/19 11:36 05/11/19 11:36 05/11/19 11:36 05/11/19 11:36 Intake & Output 05/10/19 05/11/19 05/12/19 06:59 06:59 06:59 Intake Total 1610 1700 200 Balance 1610 1700 200 Weight 78.7 kg 85.8 kg General appearance: PRESENT: no acute distress, cooperative Neck exam: ABSENT: JVD Respiratory exam: PRESENT: clear to auscultation autumn GI/Abdominal exam: PRESENT: normal bowel sounds, soft, tenderness. ABSENT: distended, firm, guarding, rebound, rigid Neurological exam: PRESENT: alert, awake Results Laboratory Results: WBC 3.5 10^3/uL (4.0-10.5) L 05/11/19 06:44 RBC 3.72 10^6/uL (4.35-5.55) L 05/11/19 06:44 Hgb 12.3 g/dL (13.5-17.0) L 05/11/19 06:44 Hct 34.6 % (37.9-51.0) L 05/11/19 06:44 MCV 93 fl (80-97) 05/11/19 06:44 MCH 33.1 pg (27.0-33.4) 05/11/19 06:44 MCHC 35.6 g/dL (32.0-36.0) 05/11/19 06:44 RDW 15.2 % (11.5-14.0) H 05/11/19 06:44 Plt Count 54 10^3/uL (150-450) L 05/11/19 06:44 Lymph % (Auto) 6.0 % (13-45) L 05/07/19 08:57 [place] % (Auto) 6.2 % (3-13) 05/07/19 08:57 Eos % (Auto) 1.2 % (0-6) 05/07/19 08:57 Baso % (Auto) 0.5 % (0-2) 05/07/19 08:57 Absolute Neuts (auto) 5.6 10^3/uL (1.7-8.2) 05/07/19 08:57 Absolute Lymphs (auto) 0.4 10^3/uL (0.5-4.7) L 05/07/19 08:57 Absolute Monos (auto) 0.4 10^3/uL (0.1-1.4) 05/07/19 08:57 Absolute Eos (auto) 0.1 10^3/uL (0.0-0.6) 05/07/19 08:57 Absolute Basos (auto) 0.0 10^3/uL (0.0-0.2) 05/07/19 08:57 Seg Neutrophils % 86.1 % (42-78) H 05/07/19 08:57 Sodium 130.1 mmol/L (137-145) L 05/11/19 06:44 Potassium 4.2 mmol/L (3.6-5.0) 05/11/19 06:44 Chloride 103 mmol/L (98-107) 05/11/19 06:44 Carbon Dioxide 20 mmol/L (22-30) L 05/11/19 06:44 Anion Gap 7 (5-19) 05/11/19 06:44 BUN 18 mg/dL (7-20) 05/11/19 06:44 Creatinine 1.31 mg/dL (0.52-1.25) H 05/11/19 06:44 Est GFR ( Amer) > 60 (>60) 05/11/19 06:44 Est GFR (MDRD) Non-Af 53 (>60) L 05/11/19 06:44 Glucose 93 mg/dL (75-110) 05/11/19 06:44 Serum Osmolality 270 mOsm/kg (275-301) L 05/10/19 06:13 Calcium 7.3 mg/dL (8.4-10.2) L 05/11/19 06:44 Total Bilirubin 1.9 mg/dL (0.2-1.3) H 05/08/19 05:09 Direct Bilirubin 0.2 mg/dL (0.0-0.4) 05/08/19 05:09 Neonat Total Bilirubin Not Reportable 05/08/19 05:09 Neonat Direct Bilirubin Not Reportable 05/08/19 05:09 Neonat Indirect Bili Not Reportable 05/08/19 05:09 AST 45 U/L (17-59) 05/08/19 05:09 ALT 39 U/L (<50) 05/08/19 05:09 Alkaline Phosphatase 72 U/L (38-126) 05/08/19 05:09 Total Protein 5.7 g/dL (6.3-8.2) L 05/08/19 05:09 Albumin 2.6 g/dL (3.5-5.0) L 05/11/19 06:44 Lipase 200.8 U/L (23-300) 05/07/19 08:57 TSH 5.20 uIU/mL (0.47-4.68) H 05/11/19 06:44 Urine Color YELLOW 05/07/19 09:31 Urine Appearance CLEAR 05/07/19 09:31 Urine pH 6.0 (5.0-9.0) 05/07/19 09:31 Ur Specific [place] 1.019 05/10/19 09:45 Urine Protein 30 mg/dL (NEGATIVE) H 05/07/19 09:31 Urine Glucose (UA) NEGATIVE mg/dL (NEGATIVE) 05/07/19 09:31 Urine Ketones NEGATIVE mg/dL (NEGATIVE) 05/07/19 09:31 Urine Blood NEGATIVE (NEGATIVE) 05/07/19 09:31 Urine Nitrite NEGATIVE (NEGATIVE) 05/07/19 09:31 Urine Bilirubin NEGATIVE (NEGATIVE) 05/07/19 09:31 Urine Urobilinogen NEGATIVE mg/dL (<2.0) 05/07/19 09:31 Ur Leukocyte Esterase NEGATIVE (NEGATIVE) 05/07/19 09:31 Urine WBC (Auto) 1 /HPF 05/07/19 09:31 Urine RBC (Auto) 1 /HPF 05/07/19 09:31 Squamous Epi Cells Auto <1 /HPF 05/07/19 09:31 Urine Mucus (Auto) OCC /LPF 05/07/19 09:31 Urine Osmolality 691 mOsm/kg (300-900) 05/11/19 09:50 Urine Sodium 81 mmol/L (30-90) 05/10/19 09:45 Urine Ascorbic Acid NEGATIVE (NEGATIVE) 05/07/19 09:31 Stl C. Difficile GDH Ag NEGATIVE (NEGATIVE) 05/10/19 12:05 Stl C.difficile Tox A&B NEGATIVE (NEGATIVE) 05/10/19 12:05 Blood Type A NEGATIVE 05/08/19 14:58 Antibody Screen NEGATIVE 05/08/19 14:58 Impressions: Abdomen/Pelvis CT 05/07/19 10:20 IMPRESSION: Diverticulitis distal descending colon. Chest X-Ray 05/07/19 10:20 IMPRESSION: NO ACUTE RADIOGRAPHIC FINDING IN THE CHEST. Plan Time Spent: Greater than 30 Minutes Stroke Is this a Stroke Patient?: No Acute Heart Failure - Is this a Heart Failure Patient?: No
== END 2019-05-11 13:44 | disposition home or self-care (01) | DRG 378 ==
LOC: ER 08:22 → EH 12:30 → 4S 14:59
PROVIDERS: ADMIT Internal Medicine; ATTEND Internal Medicine
PROC: 30233R1 Transfusion of Nonautologous Platelets into Peripheral Vein, Percutaneous Approach (ICD-10-PCS; principal; 2019-05-08)
DX: K57.33 Diverticulitis of large intestine without perforation or abscess with bleeding (principal); E87.1 Hypo-osmolality and hyponatremia; N17.9 Acute kidney failure, unspecified; C79.51 Secondary malignant neoplasm of bone; C64.2 Malignant neoplasm of left kidney, except renal pelvis; D69.59 Other secondary thrombocytopenia; T45.1X5A Adverse effect of antineoplastic and immunosuppressive drugs, initial encounter; Y92.9 Unspecified place or not applicable; E03.9 Hypothyroidism, unspecified; K21.9 Gastro-esophageal reflux disease without esophagitis; K64.4 Residual hemorrhoidal skin tags; K59.00 Constipation, unspecified; I25.10 Atherosclerotic heart disease of native coronary artery without angina pectoris; E78.5 Hyperlipidemia, unspecified; E78.00 Pure hypercholesterolemia, unspecified; E86.0 Dehydration; I10 Essential (primary) hypertension; I25.2 Old myocardial infarction; Z95.1 Presence of aortocoronary bypass graft; Z79.899 Other long term (current) drug therapy; Z88.6 Allergy status to analgesic agent; Z88.0 Allergy status to penicillin; Z92.3 Personal history of irradiation
CPT/HCPCS: 36415; 36430; 71046; 74176; 80048; 80053; 81001; 81002; 82040; 83690; 83930; 83935; 84300; 84443; 85025; 85027; 86850; 86900; 86901; 87040; 87045; 87086; 87205; 87324; 87449; 96361; 96365; 96375; 99284; C9113; J0744; J2270; J2405; J3490; J7030; P9035; S0028

== ENCOUNTER 2019-05-23 19:30 | Emergency (ER) | payer MEDICARE ==
[2019-05-23 20:40] LABS: ABSOLUTE LYMPHOCYTES (AUTO) 0.7 10^3/uL (0.5-4.7); ABSOLUTE MONOCYTES (AUTO) 0.5 10^3/uL (0.1-1.4); ABSOLUTE NEUT (AUTO) 1.9 10^3/uL (1.7-8.2); BASOPHILS % (AUTO) 0.5 % (0-2); EOSINOPHILS % (AUTO) 1.1 % (0-6); HEMATOCRIT 32.5 % (37.9-51.0); HEMOGLOBIN 11.2 g/dL (13.5-17.0); INTERNATIONAL RATION (INR) 1.01; LYMPHOCYTES % (AUTO) 21.3 % (13-45); MEAN CORPUSCULAR HEMOGLOBIN 32.8 pg (27.0-33.4); MEAN CORPUSCULAR HGB CONC 34.4 g/dL (32.0-36.0); MEAN CORPUSCULAR VOLUME 95 fl (80-97); MONOCYTES % (AUTO) 16.6 % (3-13); PLATELET COUNT 131 10^3/uL (150-450); PROTHROMBIN TIME 13.3 SEC (11.4-15.4); RED BLOOD COUNT 3.41 10^6/uL (4.35-5.55); SEGMENTED NEUTROPHILS % (AUTO) 60.5 % (42-78); TOTAL CELLS COUNTED % (AUTO) 100 %; WHITE BLOOD COUNT 3.1 10^3/uL (4.0-10.5)
[2019-05-23 20:55] LABS: ALBUMIN 3.4 g/dL (3.5-5.0); ALKALINE PHOSPHATASE 80 U/L (38-126); ANION GAP 12 (5-19); ASPARTATE AMINO TRANSFERASE 35 U/L (17-59); BILIRUBIN,DIRECT 0.3 mg/dL (0.0-0.4); BILIRUBIN,TOTAL 0.4 mg/dL (0.2-1.3); BLOOD UREA NITROGEN 39 mg/dL (7-20); CALCIUM 9.4 mg/dL (8.4-10.2); CARBON DIOXIDE 24 mmol/L (22-30); CHLORIDE 100 mmol/L (98-107); GLUCOSE 134 mg/dL (75-110); TOTAL PROTEIN 6.5 g/dL (6.3-8.2)
[2019-05-23 20:59] LABS: VENOUS BLOOD BASE EXCESS -2.2 mmol/L; VENOUS BLOOD HCO3 21.8 mmol/L (20-32); VENOUS BLOOD PCO2 35.7 mmHg (35-63); VENOUS BLOOD PH 7.4 (7.30-7.42)
[2019-05-23 23:16] LABS: APPEARANCE,URINE SLIGHTLY-CLOUDY; BILIRUBIN,URINE NEGATIVE (NEGATIVE); COLOR,URINE YELLOW; GLUCOSE, URINE NEGATIVE (NEGATIVE); KETONES,URINE NEGATIVE (NEGATIVE); PROTEIN,URINE 30 mg/dL (NEGATIVE); URINE SPECIFIC GRAVITY 1.016; UROBILINOGEN,URINE NEGATIVE mg/dL (<2.0)
--- NOTE | 2019-05-23 23:19 | RADIOLOGY REPORT (SQ) ---
EXAM DESCRIPTION: CT HEAD WITHOUT IV CONTRAST COMPLETED DATE/TME: 05/23/2019 21:44 CLINICAL HISTORY: 79 years, Male, altered mentals status COMPARISON: None. TECHNIQUE: Noncontrast CT head was performed. Coronal and sagittal reformations were created. Images stored on PACS. All CT scanners at this facility use dose modulation, iterative reconstruction, and/or weight based dosing when appropriate to reduce radiation dose to as low as reasonably achievable (ALARA). [facility]: Dose Right [facility]: CareDose [facility]: Dose Right [facility]: Teradose 4D [facility]: [employer] LIMITATIONS: None. FINDINGS: Evaluation of the brain parenchyma reveals mild periventricular and patchy subcortical white matter low attenuation. No acute intracranial hemorrhage, mass effect, or extra-axial fluid is seen. The ventricles and sulcal spaces are mildly enlarged. Globes and orbits show no acute abnormality. Postsurgical changes are noted about the right mastoid air cells. There are no depressed skull fractures. Calcifications are evident about the parasellar carotid arteries. IMPRESSION: No acute intracranial abnormality. Mild chronic microvascular ischemic change with generalized atrophy. TECHNICAL DOCUMENTATION: Quality ID # [id number]: Final reports with documentation of one or more dose reduction techniques (e.g., Automated exposure control, adjustment of the mA and/or kV according to patient size, use of iterative reconstruction technique) copyright 2011 [employer]- All Rights Reserved
--- NOTE | 2019-05-23 23:20 | RADIOLOGY REPORT (SQ) ---
EXAM DESCRIPTION: XR CHEST 2 VIEWS COMPLETED DATE/TME: 05/23/2019 22:57 CLINICAL HISTORY: 79 years, Male, altered mental status COMPARISON: May 07, 2019 NUMBER OF VIEWS: 2 TECHNIQUE: LIMITATIONS: None. FINDINGS: Cardiomediastinal silhouette is enlarged with postsurgical change. Chronic parenchymal lung change. No effusion. No pneumothorax IMPRESSION: Chronic change. No acute process. No adverse change copyright 2010 [employer]- All Rights Reserved
--- NOTE | 2019-05-23 23:29 | EKG REPORT ---
SEVERITY:- BORDERLINE ECG - SINUS TACHYCARDIA BORDERLINE T ABNORMALITIES, ANT-LAT LEADS : Confirmed by: Gaston Amanda 23-May-2019 23:29:00
--- NOTE | 2019-05-24 00:53 | ER Document Report ---
ED General - General Chief Complaint: Altered Mental Status Stated Complaint: INEXPLICABLE BEHAVIOR Time Seen by Provider: 05/23/19 20:37 Primary Care Provider: MIKAELA ARRIOLA MD [Primary Care Provider] - Follow up as needed TRAVEL OUTSIDE OF THE [place] IN LAST 30 DAYS: No - HPI Notes: Patient is an 79-year-old male with a history of renal cell carcinoma, recent hospitalization for acute renal failure and dehydration, as well as diverticulitis, who presents to the emergency department for evaluation of altered mental status. Patient's and daughter are the primary historians. He started acting inappropriate and confused yesterday, although it was intermittent. It lasted much longer this evening. He seemed nearly manic per family, was rocking back and forth, stating "it is my time to go I know it." His heart rate was in the 150s upon arrival of EMS. He was laughing inappropriately. He was given IV fluids, heart rate did respond. Family states that he had finished his antibiotics for diverticulitis as prescribed. No ivan fevers to their knowledge. He actually had a better appetite today than he had in the last several days. No nausea or vomiting. Unsure of a bowel movement today, but states he had a normal bowel movement yesterday. They did note that he was up urinating through the night. - Related Data Allergies/Adverse Reactions: Penicillins Allergy (Intermediate, Verified 10/17/18 09:38) Edema aspirin [Aspirin] Adverse Reaction (Mild, Verified 10/17/18 09:38) "UPSET STOMACH" WITH NONENTERIC COATED Home Medications: protonix, vit D, lipitor, tamsucosin, multivit, calcium, lisinopril, synthroid. Past Medical History - General Information source: Patient, Relative - Social History Smoking Status: Never Smoker Family History: Hypertension Patient has suicidal ideation: No Patient has homicidal ideation: No - Past Medical History Cardiac Medical History: Reports: Hx Coronary Artery Disease - HIGH CHOL, Hx Heart Attack - [place] 25Years Ago, Hx Hypercholesterolemia, Hx Hypertension Pulmonary Medical History: Denies: Hx Asthma, Hx Bronchitis, Hx COPD, Hx Pneumonia Neurological Medical History: Denies: Hx Cerebrovascular Accident, Hx Seizures Renal/ Medical History: Denies: Hx Peritoneal Dialysis Malignancy Medical History: Reports Hx Renal (Kidney) Cancer - with bone mets. Musculoskeletal Medical History: Reports Hx Arthritis Past Surgical History: Reports: Hx Cardiac Catheterization, Hx Cardiac Surgery, Hx Coronary Artery Bypass Graft - 1993, Hx Kidney (Renal Surgery) - biposy, Hx O rthopedic Surgery - biposy, Other - colonoscopy 2018, hemorrhoidectomy. Denies: Hx Pacemaker - Immunizations Hx Diphtheria, Pertussis, Tetanus Vaccination: Yes Review of Systems - Review of Systems Constitutional: See HPI EENT: No symptoms reported Cardiovascular: No symptoms reported Respiratory: No symptoms reported Gastrointestinal: No symptoms reported Genitourinary: See HPI Musculoskeletal: No symptoms reported Skin: No symptoms reported Neurological/Psychological: No symptoms reported Physical Exam - Vital signs Vitals: Resp BP Pulse Ox 19 94/65 L 97 05/23/19 19:37 05/23/19 19:37 05/23/19 19:37 - Notes Notes: This is a pleasant 79-year-old male who appears his stated age in no acute distress. He is lying calmly in the bed, cooperative with examiner, makes good eye contact. Vital signs reviewed, please refer to chart. Head is normocephalic, atraumatic. Pupils equal round, reactive to light. Neck is supple without meningismus. Heart is mildly tachycardic. Lungs are clear to auscultation bilaterally. Abdomen is soft, nontender, normoactive bowel sounds throughout. Extremities without cyanosis, clubbing. Posterior calves are nontender. Peripheral pulses are equal. Skin is warm and dry. Patient is awake, alert, oriented x3. He is slow to answer questions, but does answer them appropriately. Cranial nerves II - XII are grossly intact without focal neurological deficits. Strength is plus 5 out of 5 bilateral upper and lower extremities. Sensation is intact. Reflexes symmetrical. Intact [id number], rapid alternating movements, [id number]. Course - Re-evaluation Re-evalutation: 05/24/19 00:52 Patient presents to the emergency department for evaluation. Laboratory investigations were obtained. Blood cultures obtained as well. Urinalysis and chest x-ray were found to be unremarkable, blood cultures of course still pending. CT scan of the head was unremarkable. Despite fluid resuscitation, patient's heart rate remained in the 100-110 range. I am still concerned about occult infection. CT scan of the abdomen pelvis with IV contrast is ordered, we will continue to monitor. 05/24/19 02:05 CT scan of the abdomen pelvis failed to reveal any acute abnormalities. Patient's vital signs have completely normalized. His current heart rate is 80. His current blood pressure is 115/66. He has had a complete return to mental status baseline per family. I explained to family that his blood work looks good, despite a mildly decreased white blood cell count. His mentation is normal. Urine cultures and blood cultures are still pending, but I do not have a clear etiology for this patient's symptoms. Certainly if they return he should be brought here for further evaluation, but otherwise I will discharge him with close follow-up with primary care. Patient's , daughter are amenable to this plan. He is to return to the ED with worsening or new concerning symptoms of any sort. - Vital Signs Vital signs: Temp Pulse Resp BP Pulse Ox 98.2 F 116 H 16 95/62 L 97 05/23/19 20:11 05/23/19 20:11 05/23/19 21:31 05/23/19 21:31 05/23/19 21:47 - Laboratory Result Diagrams: 05/23/19 19:46 05/23/19 19:46 Laboratory results interpreted by me: 05/23/19 05/23/19 05/23/19 19:46 19:46 22:47 WBC 3.1 L RBC 3.41 L Hgb 11.2 L Hct 32.5 L RDW 15.0 H Plt Count 131 L [place] % (Auto) 16.6 H Sodium 136.2 L BUN 39 H Creatinine 1.56 H Est GFR ( Amer) 52 L Est GFR (MDRD) Non-Af 43 L Glucose 134 H Albumin 3.4 L Urine Protein 30 H - Diagnostic Test Radiology reviewed: Reports reviewed Radiology results interpreted by me: 05/24/19 02:[address] 05/23/19 21:44 IMPRESSION: No acute intracranial abnormality. Mild chronic microvascular ischemic change with generalized atrophy. TECHNICAL DOCUMENTATION: Quality ID # 436: Final reports with documentation of one or more dose reduction techniques (e.g., Automated exposure control, adjustment of the mA and/or kV according to patient size, use of iterative reconstruction technique) copyright 2010 [employer]- All Rights Reserved Chest X-Ray 05/23/19 22:57 IMPRESSION: Chronic change. No acute process. No adverse change copyright 2010 [employer]- All Rights Reserved Abdomen/Pelvis CT 05/23/19 23:41 IMPRESSION: No acute findings. Diverticulosis without evidence of diverticulitis. Changes of ablation of the left kidney with no evidence of a residual mass. TECHNICAL DOCUMENTATION: Quality ID # 436: Final reports with documentation of one or more dose reduction techniques (e.g., Automated exposure control, adjustment of the mA and/or kV according to patient size, use of iterative reconstruction technique) copyright 2011 [employer]- All Rights Reserved - EKG Interpretation by Me Additional EKG results interpreted by me: 05/24/19 02:04 Sinus tachycardia with a rate of 107 bpm. Normal axis and intervals, no acute ST changes concerning for infarction. Discharge - Discharge Clinical Impression: Altered mental status Qualifiers: Altered mental status type: unspecified Qualified Code(s): R41.82 - Altered mental status, unspecified Condition: Stable Disposition: HOME, SELF-CARE Instructions: Altered Mental Status ([facility]) Additional Instructions: No clear cause was found for the confusion he exhibited today. Blood cultures and urine culture are still pending, you will be contacted should any bacteria grow. Follow-up with primary care on Saturday or Saturday. Return to the emergency department with worsening or new concerning symptoms of any sort. Referrals: MIKAELA ARRIOLA MD [Primary Care Provider] - Follow up as needed
[2019-05-24] MEDS: NORMAL SALINE 1000 ML 1,000 ML IV PRN ×2 (01:00→01:20)
--- NOTE | 2019-05-24 01:50 | RADIOLOGY REPORT (SQ) ---
EXAM DESCRIPTION: CT ABDOMEN PELVIS WITH IV CONTRAST COMPLETED DATE/TME: 05/23/2019 23:41 CLINICAL HISTORY: 79 years, Male, recent diverticulitis, low blood pressure COMPARISON: 05/07/2019, 10/17/2018 TECHNIQUE: Axial CT images of the abdomen and pelvis were obtained after the administration of IV contrast. Sagittal and coronal reformats were performed. DL 1003 Images stored on PACS. All CT scanners at this facility use dose modulation, iterative reconstruction, and/or weight based dosing when appropriate to reduce radiation dose to as low as reasonably achievable (ALARA). [facility]: Dose Right [facility]: CareDose [facility]: Dose Right [facility]: Teradose 4D [facility]: Smart [employer] LIMITATIONS: None. FINDINGS: The lung bases are clear. The liver contains a subcentimeter hypodensity, which is too small to further characterize. The gallbladder, pancreas, spleen, and adrenal glands are unremarkable. The right kidney enhances normally with no evidence of hydronephrosis. There are changes of ablation involving the lateral aspect of the upper pole of the left kidney with adjacent stranding. No evidence of a residual tumor. There are cysts along the mid and lower pole. There is no intraperitoneal free air or fluid. There is no lymphadenopathy. There are atherosclerotic calcifications of the abdominal aorta without evidence of an aneurysm or dissection. The stomach and small bowel appear unremarkable. The appendix is not uniquely identified, however there are no pericecal inflammatory changes. Diverticulosis is noted without evidence of diverticulitis. Urinary bladder is unremarkable. The prostate gland measures 6.3 x 4.8 cm. There are no lytic or blastic bone lesions. IMPRESSION: No acute findings. Diverticulosis without evidence of diverticulitis. Changes of ablation of the left kidney with no evidence of a residual mass. TECHNICAL DOCUMENTATION: Quality ID # 436: Final reports with documentation of one or more dose reduction techniques (e.g., Automated exposure control, adjustment of the mA and/or kV according to patient size, use of iterative reconstruction technique) copyright 2011 [employer]- All Rights Reserved
[2019-05-24 02:41] VITALS: BP 112/64
== END 2019-05-24 03:00 | disposition home or self-care (01) ==
LOC: ER 19:30
DX: R41.82 Altered mental status, unspecified (principal); N17.9 Acute kidney failure, unspecified; E86.0 Dehydration; Z85.53 Personal history of malignant neoplasm of renal pelvis; Z88.0 Allergy status to penicillin; Z88.8 Allergy status to other drugs, medicaments and biological substances; Z79.899 Other long term (current) drug therapy; I25.10 Atherosclerotic heart disease of native coronary artery without angina pectoris; I25.2 Old myocardial infarction; I10 Essential (primary) hypertension
CPT/HCPCS: 93005; 99285; 96360; 96361; 51701; 36415; 87040; 82962; 83605; 85610; 87070; 81001; 84484; 82803; 71046; 70450; 74177; 93010; J7030; 80048; 80061; 84443; 84460; 85025

== ENCOUNTER → 2019-05-23 | Outpatient (CLI) | payer MEDICARE ==
[2019-05-23 08:48] LABS: ABSOLUTE EOSINOPHILS # (AUTO) 0.1 10^3/uL (0.0-0.6); ABSOLUTE LYMPHOCYTES (AUTO) 0.9 10^3/uL (0.5-4.7); ABSOLUTE MONOCYTES (AUTO) 0.5 10^3/uL (0.1-1.4); ABSOLUTE NEUT (AUTO) 1.4 10^3/uL (1.7-8.2); BASOPHILS % (AUTO) 0.4 % (0-2); EOSINOPHILS % (AUTO) 2.5 % (0-6); HEMATOCRIT 35.9 % (37.9-51.0); HEMOGLOBIN 12.5 g/dL (13.5-17.0); LYMPHOCYTES % (AUTO) 31.4 % (13-45); MEAN CORPUSCULAR HEMOGLOBIN 33.1 pg (27.0-33.4); MEAN CORPUSCULAR HGB CONC 34.9 g/dL (32.0-36.0); MEAN CORPUSCULAR VOLUME 95 fl (80-97); MONOCYTES % (AUTO) 17.2 % (3-13); PLATELET COUNT 151 10^3/uL (150-450); RED BLOOD COUNT 3.79 10^6/uL (4.35-5.55); RED CELL DISTRIBUTION WIDTH 15.2 % (11.5-14.0); SEGMENTED NEUTROPHILS % (AUTO) 48.5 % (42-78); TOTAL CELLS COUNTED % (AUTO) 100 %; WHITE BLOOD COUNT 2.8 10^3/uL (4.0-10.5)
[2019-05-23 09:04] LABS: ANION GAP 8 (5-19); BLOOD UREA NITROGEN 37 mg/dL (7-20); CALCIUM 9.8 mg/dL (8.4-10.2); CARBON DIOXIDE 31 mmol/L (22-30); CHLORIDE 98 mmol/L (98-107); CHOLESTEROL 142.09 mg/dL (0-200); GLUCOSE 118 mg/dL (75-110); TRIGLYCERIDES 197 mg/dL (<150)
[2019-05-23 09:14] LABS: DIRECT LDL 94 mg/dL (<100)
[2019-05-23 09:15] LABS: VLDL CHOLESTEROL 39.4 mg/dL (10-31)
== END ==
LOC: OD 08:02
PROVIDERS: ATTEND Family Medicine Geriatric Medicine
DX: N18.3 Chronic kidney disease, stage 3 (moderate) (principal); E03.9 Hypothyroidism, unspecified; E78.5 Hyperlipidemia, unspecified; Z79.899 Other long term (current) drug therapy
CPT/HCPCS: 36415; 80048; 80061; 84443; 84460; 85025

== ENCOUNTER → 2019-07-23 | Outpatient (CLI) | payer MEDICARE ==
[2019-07-23 08:10] LABS: ABSOLUTE EOSINOPHILS # (AUTO) 0.2 10^3/uL (0.0-0.6); ABSOLUTE MONOCYTES (AUTO) 0.8 10^3/uL (0.1-1.4); ABSOLUTE NEUT (AUTO) 5.7 10^3/uL (1.7-8.2); BASOPHILS % (AUTO) 0.4 % (0-2); EOSINOPHILS % (AUTO) 2.3 % (0-6); HEMATOCRIT 37.2 % (37.9-51.0); HEMOGLOBIN 13.1 g/dL (13.5-17.0); LYMPHOCYTES % (AUTO) 12.3 % (13-45); MEAN CORPUSCULAR HEMOGLOBIN 33.5 pg (27.0-33.4); MEAN CORPUSCULAR HGB CONC 35.2 g/dL (32.0-36.0); MEAN CORPUSCULAR VOLUME 95 fl (80-97); MONOCYTES % (AUTO) 10.8 % (3-13); PLATELET COUNT 153 10^3/uL (150-450); RED BLOOD COUNT 3.91 10^6/uL (4.35-5.55); RED CELL DISTRIBUTION WIDTH 13.9 % (11.5-14.0); SEGMENTED NEUTROPHILS % (AUTO) 74.2 % (42-78); TOTAL CELLS COUNTED % (AUTO) 100 %; WHITE BLOOD COUNT 7.7 10^3/uL (4.0-10.5)
== END ==
LOC: OD 07:20
PROVIDERS: ATTEND Family Medicine Geriatric Medicine
DX: D64.9 Anemia, unspecified (principal)
CPT/HCPCS: 36415; 85025

== ENCOUNTER → 2019-09-25 | Outpatient (CLI) | payer MEDICARE ==
[2019-09-25 08:19] LABS: ABSOLUTE EOSINOPHILS # (AUTO) 0.2 10^3/uL (0.0-0.6); ABSOLUTE MONOCYTES (AUTO) 0.5 10^3/uL (0.1-1.4); ABSOLUTE NEUT (AUTO) 3.7 10^3/uL (1.7-8.2); BASOPHILS % (AUTO) 0.6 % (0-2); HEMATOCRIT 37.2 % (37.9-51.0); HEMOGLOBIN 12.9 g/dL (13.5-17.0); LYMPHOCYTES % (AUTO) 17.9 % (13-45); MEAN CORPUSCULAR HGB CONC 34.8 g/dL (32.0-36.0); MEAN CORPUSCULAR VOLUME 92 fl (80-97); MONOCYTES % (AUTO) 8.8 % (3-13); PLATELET COUNT 150 10^3/uL (150-450); RED BLOOD COUNT 4.04 10^6/uL (4.35-5.55); RED CELL DISTRIBUTION WIDTH 13.2 % (11.5-14.0); SEGMENTED NEUTROPHILS % (AUTO) 69.7 % (42-78); TOTAL CELLS COUNTED % (AUTO) 100 %; WHITE BLOOD COUNT 5.4 10^3/uL (4.0-10.5)
[2019-09-25 08:30] LABS: ANION GAP 7 (5-19); BLOOD UREA NITROGEN 23 mg/dL (7-20); CALCIUM 9.3 mg/dL (8.4-10.2); CARBON DIOXIDE 28 mmol/L (22-30); CHLORIDE 106 mmol/L (98-107); GLUCOSE 111 mg/dL (75-110); POTASSIUM 4.6 mmol/L (3.6-5.0)
== END ==
LOC: OD 07:19
PROVIDERS: ATTEND Family Medicine Geriatric Medicine
DX: E03.9 Hypothyroidism, unspecified (principal); E78.5 Hyperlipidemia, unspecified; I10 Essential (primary) hypertension; Z79.899 Other long term (current) drug therapy
CPT/HCPCS: 36415; 80048; 84443; 84460; 85025

== ENCOUNTER → 2019-10-06 | Outpatient (CLI) | payer MEDICARE ==
--- NOTE | 2019-10-06 14:16 | RADIOLOGY REPORT (SQ) ---
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 The route of agent administration: Intravenous. ADDITIONAL DRUGS AND DOSES: None. TECHNIQUE: Routine delayed images at 3 hour post radionuclide injection acquired of the bony skeleto n including anterior and posterior whole-body projections and additional focused images as needed. LIMITATIONS: None. FINDINGS: BONES: A focused area of increased uptake is seen within the left acetabulum, which correl ates to an expansile lytic lesion demonstrated on comparison CT imaging. A focused area of increased uptake seen within the right 8th rib laterally correlates to an expansile lytic lesion demonstrated on comparison CT imaging. Symmetric uptake seen in the acromioclavicular joints and 1st metacarpal p halangeal joints likely represent degenerative changes. Focal uptake seen within the lateral compart ment of the right knee likewise suggests degenerative change. Few foci of uptake are seen within the cervical and thoracic common. These are nonspecific findings. KIDNEYS: Symmetric excretion without obstruction. OTHER: No other significant finding. IMPRESSION: Left acetabulum and right 8th rib uptake correlates to expansile lytic lesions demonstra gabe on comparison CT imaging. Symmetric shoulder and hand uptake is favored to be on the basis of de generative change. Asymmetric uptake in the knees likewise is favored to represent degenerative cheng ge. Cervical and thoracic spine uptake is nonspecific. Recommend correlation with noncontrast CT im aging to assess for additional lytic foci. COMMENT: Quality measure 147: Current bone scan is compared with any available plain radiographs, p rior bone scans, and CT/MRI. TECHNICAL DOCUMENTATION: JOB ID: [id number] 2010 [employer]- All Rights Reserved Reading location - IP/workstation name: [email or web address]
== END ==
LOC: RAD 09:27
PROVIDERS: ATTEND Nurse Practitioner Family
DX: C64.2 Malignant neoplasm of left kidney, except renal pelvis (principal)
CPT/HCPCS: 78306; A9503; Q9969

== ENCOUNTER → 2019-10-29 | Outpatient (CLI) | payer MEDICARE ==
[2019-10-29 08:48] LABS: CHOLESTEROL 126.53 mg/dL (0-200); TRIGLYCERIDES 186 mg/dL (<150)
[2019-10-29 08:59] LABS: DIRECT LDL 78 mg/dL (<100)
[2019-10-29 09:22] LABS: VLDL CHOLESTEROL 37.2 mg/dL (10-31)
== END ==
LOC: OD 07:05
PROVIDERS: ATTEND Family Medicine Geriatric Medicine
DX: E83.42 Hypomagnesemia (principal); E78.5 Hyperlipidemia, unspecified; N40.1 Benign prostatic hyperplasia with lower urinary tract symptoms; Z79.899 Other long term (current) drug therapy
CPT/HCPCS: 36415; 80061; 82947; 82950; 83036; 84153

== ENCOUNTER → 2019-10-30 | Outpatient (CLI) | payer MEDICARE ==
--- NOTE | 2019-10-30 10:46 | RADIOLOGY REPORT (SQ) ---
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 Previous abdominal CT 05/24/2019. TECHNIQUE: Axial images acquired through the cervical, thoracic, lumbar spine without intravenous co ntrast. Images reviewed with lung, soft tissue and bone windows. Reconstructed coronal and sagittal MPR images reviewed. Images stored on PACS. All CT scanners at this facility use dose modulation, iterative reconstruction, and/or weight based d osing when appropriate to reduce radiation dose to as low as reasonably achievable (ALARA). [facility]: Dose Right [facility]: CareDose [facility]: Dose Right [facility]: Teradose 4D [facility]: Smart [employer] RADIATION DOSE: CT Rad equipment meets quality standard of care and radiation dose reduction techniq ues were employed. CTDIvol: 21.1 mGy. DLP: 467 mGy-cm.; CT Rad equipment meets quality standard of ca re and radiation dose reduction techniques were employed. CTDIvol: 15.2 mGy. DLP: 464 mGy-cm.; CT Rad equipment meets quality standard of care and radiation dose reduction techniques were employed. CTDI vol: 18.9 mGy. DLP: 753 mGy-cm. mGy. LIMITATIONS: None. FINDINGS: CERVICAL VISUALIZED LUNGS: No acute opacities. No pneumothorax. SOFT TISSUES: No soft tissue swelling. No masses. VERTEBRAL BODIES: No fracture. No height loss. No suspicious bone lesion. DISCS: Multiple discs show evidence of degeneration with height loss and associated small osteophytes , small endplate irregularities at several levels as well. ALIGNMENT: Normal. TRANSVERSE PROCESSES, POSTERIOR ELEMENTS: Multilevel facet arthropathy. Most pronounced on the left at C3-4 and on the right at C4-5. HARDWARE: None in the spine. VISUALIZED RIBS: No fractures. OTHER: No other significant finding. THORACIC VISUALIZED LUNGS: No acute opacities. No pneumothorax. SOFT TISSUES: No soft tissue swelling. No masses. VERTEBRAL BODIES: No fractures. No dislocation. No acute findings. No bone lesion. DISCS: Fairly maintained heights. No suggestion of large bulge or hernia. Anteriorly projecting low er thoracic osteophytes. ALIGNMENT: Normal. TRANSVERSE PROCESSES, POSTERIOR ELEMENTS: No fractures. No dislocation. No acute findings. HARDWARE: None in the spine. VISUALIZED RIBS: No fractures. OTHER: No other significant finding. LUMBAR SOFT TISSUES: Densely atherosclerotic aorta. No aneurysm. Mild chronic dissection not excluded. Ch ronic appearance compared to prior abdominal CT. VERTEBRAL BODIES: No evidence of fracture. No height loss. No bone lesion. DISCS: Disc space narrowing at L4-5. Broad disc bulge. Slight central and foraminal narrowing. ALIGNMENT: Normal. TRANSVERSE PROCESSES, POSTERIOR ELEMENTS: No fractures. No dislocation. No acute findings. HARDWARE: None in the spine. VISUALIZED PELVIS: OTHER: No other significant finding. IMPRESSION: 1. No cervical or thoracic or lumbar suspicious bone findings. 2. Spondylosis as above. TECHNICAL DOCUMENTATION: JOB ID: [id number] Quality ID # 436: Final reports with documentation of one or more dose reduction techniques (e.g., Au tomated exposure control, adjustment of the mA and/or kV according to patient size, use of iterative reconstruction technique) 2010 [employer]- All Rights Reserved Reading location - IP/workstation name: [email or web address]
== END ==
LOC: RAD 07:30
PROVIDERS: ATTEND Nurse Practitioner Family
DX: C79.51 Secondary malignant neoplasm of bone (principal); M50.321 Other cervical disc degeneration at C4-C5 level; M54.5 Low back pain; M54.6 Pain in thoracic spine
CPT/HCPCS: 72125; 72128; 72131

== ENCOUNTER 2019-12-03 16:39 | Emergency (ER) | payer MEDICARE ==
--- NOTE | 2019-12-03 17:44 | ER Document Report ---
ED Medical Screen (RME) - General Chief Complaint: Rectal Bleeding Stated Complaint: BLOOD IN STOOL Time Seen by Provider: 12/03/19 17:34 Primary Care Provider: MIKAELA ARRIOLA MD [Primary Care Provider] - Follow up as needed Mode of Arrival: Ambulatory Information source: Patient Notes: HPI; 79 y/o male past medical history significant for bone cancer recently comp leted radiation therapy, also history of diverticulitis presents emergency room with rectal bleeding for the past 4 days. Worse since last night. Sent over by PCP not on blood thinners except for baby aspirin which she stopped 2 days ago. PE: Alert and oriented x3. Lungs: Clear to auscultation without rales, rhonchi, wheezes. Heart: Regular rate and rhythm without murmurs, rubs, gallops. Unable to do full abdominal exam in triage. Unable to do rectal exam in triage I have greeted and performed a rapid initial assessment of this patient. A comprehensive ED assessment and evaluation of the patient, analysis of test results and completion of the medical decision making process will be conducted by additional ED providers. I have specifically instructed the patient or family members with the patient to immediately return to any nursing staff should anything change in the patient's condition or with their chief complaint. TRAVEL OUTSIDE OF THE [place] IN LAST 30 DAYS: No - Related Data Allergies/Adverse Reactions: Penicillins Allergy (Intermediate, Verified 12/03/19 17:34) Edema aspirin [Aspirin] Adverse Reaction (Mild, Verified 12/03/19 17:34) "UPSET STOMACH" WITH NONENTERIC COATED Home Medications: asa... Past Medical History - Social History Chew tobacco use (# tins/day): No Frequency of alcohol use: None Drug Abuse: None - Past Medical History Cardiac Medical History: Reports: Hx Coronary Artery Disease - HIGH CHOL, Hx Heart Attack - CT 25Years Ago, Hx Hypercholesterolemia, Hx Hypertension Pulmonary Medical History: Denies: Hx Asthma, Hx Bronchitis, Hx COPD, Hx Pneumonia Neurological Medical History: Denies: Hx Cerebrovascular Accident, Hx Seizures Renal/ Medical History: Denies: Hx Peritoneal Dialysis Malignancy Medical History: Reports Hx Renal (Kidney) Cancer - with bone mets. Musculoskeltal Medical History: Reports Hx Arthritis Past Surgical History: Reports: Hx Cardiac Catheterization, Hx Cardiac Surgery, Hx Coronary Artery Bypass Graft - 1993, Hx Kidney (Renal Surgery) - biposy, Hx Orthopedic Surgery - biposy, Other - colonoscopy 2018, hemorrhoidectomy. Denies: Hx Pacemaker - Immunizations Hx Diphtheria, Pertussis, Tetanus Vaccination: Yes Physical Exam - Vital signs Vitals: Temp Pulse Resp BP Pulse Ox 97.8 F 98 18 113/61 90 L 12/03/19 17:01 12/03/19 17:01 12/03/19 17:01 12/03/19 17:01 12/03/19 17:01 Course - Vital Signs Vital signs: Temp Pulse Resp BP Pulse Ox 97.8 F 98 18 113/61 90 L 12/03/19 17:01 12/03/19 17:01 12/03/19 17:01 12/03/19 17:01 12/03/19 17:01 Doctor's Discharge - Discharge Referrals: MIKAELA ARRIOLA MD [Primary Care Provider] - Follow up as needed
[2019-12-03 18:04] LABS: ABSOLUTE EOSINOPHILS # (AUTO) 0.1 10^3/uL (0.0-0.6); ABSOLUTE MONOCYTES (AUTO) 0.7 10^3/uL (0.1-1.4); ABSOLUTE NEUT (AUTO) 6.1 10^3/uL (1.7-8.2); BASOPHILS % (AUTO) 0.4 % (0-2); EOSINOPHILS % (AUTO) 1.5 % (0-6); HEMATOCRIT 37.4 % (37.9-51.0); HEMOGLOBIN 12.8 g/dL (13.5-17.0); LYMPHOCYTES % (AUTO) 12.5 % (13-45); MEAN CORPUSCULAR HEMOGLOBIN 31.3 pg (27.0-33.4); MEAN CORPUSCULAR HGB CONC 34.1 g/dL (32.0-36.0); MEAN CORPUSCULAR VOLUME 92 fl (80-97); MONOCYTES % (AUTO) 8.5 % (3-13); PLATELET COUNT 214 10^3/uL (150-450); RED BLOOD COUNT 4.08 10^6/uL (4.35-5.55); RED CELL DISTRIBUTION WIDTH 14.4 % (11.5-14.0); SEGMENTED NEUTROPHILS % (AUTO) 77.1 % (42-78); TOTAL CELLS COUNTED % (AUTO) 100 %; WHITE BLOOD COUNT 7.9 10^3/uL (4.0-10.5)
[2019-12-03 18:16] LABS: ALBUMIN 4.5 g/dL (3.5-5.0); ALKALINE PHOSPHATASE 103 U/L (38-126); ANION GAP 8 (5-19); ASPARTATE AMINO TRANSFERASE 22 U/L (17-59); BILIRUBIN,TOTAL 0.8 mg/dL (0.2-1.3); BLOOD UREA NITROGEN 39 mg/dL (7-20); CALCIUM 9.5 mg/dL (8.4-10.2); CARBON DIOXIDE 26 mmol/L (22-30); CHLORIDE 99 mmol/L (98-107); GLUCOSE 118 mg/dL (75-110); TOTAL PROTEIN 7.4 g/dL (6.3-8.2)
--- NOTE | 2019-12-03 20:24 | RADIOLOGY REPORT (SQ) ---
EXAM DESCRIPTION: CT abdomen and pelvis with contrast CLINICAL HISTORY: 79 years Male, rectal bleeding/abdominal pain COMPARISON: CT abdomen and pelvis 05/24/2019 TECHNIQUE: Axial images of the abdomen and pelvis were performed utilizing intravenous contrast, with sagittal and coronal reformatted images. This exam was performed according to our departmental dose-optimization program which includes use of Automated Exposure Control, adjustment of the mA and/or kV according to patient size and/or use of iterative reconstruction technique. FINDINGS: There are several small pulmonary nodules at the lung bases, left side more apparent than right. This is a new finding, as compared with the prior scan, suggesting that these are pulmonary metastases. This patient has a history of left-sided renal cell carcinoma. There is evidence of prior ablation of the left upper pole renal carcinoma. There are atherosclerotic changes involving the abdominal aorta, but there is no aneurysm. There is diverticulosis without diverticulitis. No evidence of bowel obstruction. There is a small left inguinal hernia containing only fat. There is no significant radiographic abnormality of the liver, spleen, pancreas, adrenal glands or right kidney. There is a probable small hepatic cyst. IMPRESSION: Findings are most compatible with pulmonary metastases at the lung bases. Other findings as described.
--- NOTE | 2019-12-03 20:38 | ER Document Report ---
ED GI Bleed / Rectal Pain - General Chief Complaint: Rectal Bleeding Stated Complaint: BLOOD IN STOOL Time Seen by Provider: 12/03/19 17:34 Primary Care Provider: MIKAELA SCHOFIELD MD [Primary Care Provider] - Follow up as needed Mode of Arrival: Ambulatory Information source: Patient Notes: 79-year-old male past medical history significant for an AK with a triple byp ass, renal cell carcinoma, renal failure, diverticulitis presents to the emergency room complaining of rectal bleeding for the past 4 days. States at first it was only when he wiped has gotten worse since last night where he states he filled the urine with bright red blood. Also complaining of symptoms of diffuse lower left lower quadrant pain patient states he was seen by his primary care physician today Dr. Schofield who referred him to the emergency room. He denies any nausea, vomiting, no fevers, recently finished radiation in November for metastatic bone cancer TRAVEL OUTSIDE OF THE [place] IN LAST 30 DAYS: No - Related Data Allergies/Adverse Reactions: Penicillins Allergy (Intermediate, Verified 12/03/19 17:34) Edema aspirin [Aspirin] Adverse Reaction (Mild, Verified 12/03/19 17:34) "UPSET STOMACH" WITH NONENTERIC COATED Home Medications: asa... Past Medical History - General Information source: Patient - Social History Smoking Status: Former Smoker Chew tobacco use (# tins/day): No Frequency of alcohol use: None Drug Abuse: None Family History: Hypertension Patient has homicidal ideation: No - Past Medical History Cardiac Medical History: Reports: Hx Coronary Artery Disease - HIGH CHOL, Hx Heart Attack - [place] 25Years Ago, Hx Hypercholesterolemia, Hx Hypertension Pulmonary Medical History: Denies: Hx Asthma, Hx Bronchitis, Hx COPD, Hx Pneumonia Neurological Medical History: Denies: Hx Cerebrovascular Accident, Hx Seizures Renal/ Medical History: Denies: Hx Peritoneal Dialysis Malignancy Medical History: Reports Hx Renal (Kidney) Cancer - with bone mets. Musculoskeletal Medical History: Reports Hx Arthritis Past Surgical History: Reports: Hx Cardiac Catheterization, Hx Cardiac Surgery, Hx Coronary Artery Bypass Graft - 1993, Hx Kidney (Renal Surgery) - biposy, Hx Orthopedic Surgery - biposy, Other - colonoscopy 2017, hemorrhoidectomy. Denies: Hx Pacemaker - Immunizations Hx Diphtheria, Pertussis, Tetanus Vaccination: Yes Review of Systems - Review of Systems Constitutional: No symptoms reported Cardiovascular: No symptoms reported Respiratory: No symptoms reported Gastrointestinal: Abdominal pain, Rectal bleeding Musculoskeletal: No symptoms reported Skin: No symptoms reported Neurological/Psychological: No symptoms reported -: Yes All other systems reviewed and negative Physical Exam - Vital signs Vitals: Temp Pulse Resp BP Pulse Ox 97.8 F 98 18 113/61 90 L 12/03/19 17:01 12/03/19 17:01 12/03/19 17:01 12/03/19 17:01 12/03/19 17:01 - General General appearance: Appears well, Alert In distress: Mild - Respiratory Respiratory status: No respiratory distress Chest status: Nontender Breath sounds: Normal Chest palpation: Normal - Cardiovascular Rhythm: Regular Heart sounds: Normal auscultation Murmur: No Friction rub: No - Abdominal Inspection: Normal Distension: No distension Bowel sounds: Normal Tenderness: Tender - Mild left lower quadrant pain on palpation. Organomegaly: No organomegaly - Rectal Tenderness: No Stool: Heme negative Hemorrhoids: None - Back Back: Normal, Nontender - Neurological Neuro grossly intact: Yes Cognition: Normal Orientation: AAOx4 Den Coma Scale Eye Opening: Spontaneous Den Coma Scale Verbal: Oriented Den Coma Scale Motor: Obeys Commands [place] Coma Scale Total: 15 Speech: Normal Motor strength normal: LUE, RUE, LLE, RLE Sensory: Normal - Skin Skin Temperature: Warm Skin Moisture: Dry Skin Color: Normal Course - Re-evaluation Re-evalutation: 12/03/19 20:55 Patient is resting comfortably he is pain-free on exam. All test results were reviewed with patient and family. Discussed the pulmonary nodules that were noted on the CT and possibility of new metastatic lung disease. Also discussed discussed with patient the worsening renal function. Patient was counseled on the importance of outpatient follow-up with his primary care physician as well as oncologist. He is to call both his primary care physician as well as his o ncologist tomorrow for outpatient follow-up appointments. Patient was counseled that he has stable labs. No active GI or rectal bleeding at this time. Patient was given strict return to the emergency room guidelines. Return for any new or worsening symptoms. All questions were answered. Patient verbalized understanding and agrees with plan of care. 12/03/19 21:03 12/03/19 21:04 - Vital Signs Vital signs: Temp Pulse Resp BP Pulse Ox 97.8 F 98 18 113/61 90 L 12/03/19 17:01 12/03/19 17:01 12/03/19 17:01 12/03/19 17:01 12/03/19 17:01 - Laboratory Result Diagrams: 12/03/19 17:50 12/03/19 17:50 Laboratory results interpreted by me: 12/03/19 12/03/19 17:50 17:50 RBC 4.08 L Hgb 12.8 L Hct 37.4 L RDW 14.4 H Lymph % (Auto) 12.5 L Sodium 133.2 L BUN 39 H Creatinine 1.74 H Est GFR ( Amer) 46 L Est GFR (MDRD) Non-Af 38 L Glucose 118 H - Diagnostic Test Radiology reviewed: Reports reviewed Discharge - Discharge Clinical Impression: Rectal bleeding, Pulmonary nodules, Diverticulosis Renal failure Qualifiers: Renal failure chronicity: unspecified chronicity Qualified Code(s): N19 - Unspecified kidney failure Condition: Stable Disposition: HOME, SELF-CARE Instructions: Rectal Bleeding, Unclear Cause ([facility]), Kidney Failure ([facility]) Additional Instructions: It is imperative that you follow-up with your oncologist for the pulmonary nodules to rule out metastatic disease. Also follow-up with your primary care physician for the rectal bleeding as well as the worsening renal failure. You are not actively bleeding. Please return to the emergency room for any new or worsening symptoms. Referrals: MIKAELA SCHOFIELD MD [Primary Care Provider] - Follow up as needed
[2019-12-03 21:15] VITALS: BP 135/63
== END 2019-12-03 21:15 | disposition home or self-care (01) ==
LOC: ER 16:39
DX: K62.5 Hemorrhage of anus and rectum (principal); R10.32 Left lower quadrant pain; R91.8 Other nonspecific abnormal finding of lung field; K57.90 Diverticulosis of intestine, part unspecified, without perforation or abscess without bleeding; I12.9 Hypertensive chronic kidney disease with stage 1 through stage 4 chronic kidney disease, or unspecified chronic kidney disease; N18.9 Chronic kidney disease, unspecified; I25.10 Atherosclerotic heart disease of native coronary artery without angina pectoris; I25.2 Old myocardial infarction; Z95.1 Presence of aortocoronary bypass graft; Z85.528 Personal history of other malignant neoplasm of kidney; Z92.3 Personal history of irradiation; Z79.82 Long term (current) use of aspirin; Z88.0 Allergy status to penicillin; Z87.891 Personal history of nicotine dependence
CPT/HCPCS: 36415; 74177; 80053; 82270; 85025; 99285

== ENCOUNTER → 2019-12-12 | Outpatient (CLI) | payer MEDICARE | LOC: OD 08:27 | PROVIDERS: ATTEND Family Medicine Geriatric Medicine | DX: N40.1 Benign prostatic hyperplasia with lower urinary tract symptoms (principal); R97.20 Elevated prostate specific antigen [PSA]; Z79.899 Other long term (current) drug therapy | CPT/HCPCS: 36415; 82306; 84153 ==

== ENCOUNTER 2019-12-28 06:51 | Emergency (ER) | payer MEDICARE ==
--- NOTE | 2019-12-28 07:52 | RADIOLOGY REPORT (SQ) ---
CLINICAL HISTORY: fall; pain with ambulating COMPARISON: None. TECHNIQUE: XR HIP 2 OR MORE VIEWS 12/28/2019 12:00 AM CDT FINDINGS: There is no fracture. There is mild narrowing of both hip joints. Soft tissues are unremarkable. IMPRESSION: No acute osseous findings.
--- NOTE | 2019-12-28 08:44 | ER Document Report ---
ED Hip Pain/Injury - General Chief Complaint: Hip Pain Stated Complaint: LEFT HIP PAIN Time Seen by Provider: 12/28/19 08:11 Primary Care Provider: MIKAELA ARRIOLA MD [Primary Care Provider] - Follow up tomorrow FREDERICK RYAN MD [ACTIVE STAFF] - Follow up tomorrow Mode of Arrival: Medic Information source: Patient Notes: Patient reports a history of metastatic renal cancer with bony involvement of his left hip. Patient states that he is been having radiation treatment. Patient denies any injury or fall. Patient complains of worsening left hip pain for the past week that is causing him to have pain with ambulation. Patient denies any fever or urinary symptoms. TRAVEL OUTSIDE OF THE [place] IN LAST 30 DAYS: No - HPI Patient complains to provider of: Hip Occurred: Last week Onset/Duration: Waxing and waning Quality of pain: Sharp Pain Level: 3 Symptoms prior to fall: denies: Chest pain, Cough Skin Color: Normal - Related Data Allergies/Adverse Reactions: Penicillins Allergy (Intermediate, Verified 12/03/19 17:34) Edema aspirin [Aspirin] Adverse Reaction (Mild, Verified 12/03/19 17:34) "UPSET STOMACH" WITH NONENTERIC COATED Home Medications: Atorvastatin. Tramadol Past Medical History - General Information source: Patient - Social History Smoking Status: Former Smoker Chew tobacco use (# tins/day): No Frequency of alcohol use: None Drug Abuse: None Lives with: Spouse/Significant other Family History: Hypertension - Past Medical History Cardiac Medical History: Reports: Hx Coronary Artery Disease - HIGH CHOL, Hx Heart Attack - [place] 25Years Ago, Hx Hypercholesterolemia, Hx Hypertension Neurological Medical History: Denies: Hx Cerebrovascular Accident, Hx Seizures Renal/ Medical History: Denies: Hx Peritoneal Dialysis Malignancy Medical History: Reports Hx Renal (Kidney) Cancer - with bone mets. Musculoskeletal Medical History: Reports Hx Arthritis Past Surgical History: Reports: Hx Cardiac Catheterization, Hx Cardiac Surgery, Hx Coronary Artery Bypass Graft - 1993, Hx Kidney (Renal Surgery) - biposy, Hx Orthopedic Surgery - biposy, Other - colonoscopy 2017, hemorrhoidectomy - Immunizations Hx Diphtheria, Pertussis, Tetanus Vaccination: Yes Review of Systems - Review of Systems Constitutional: No symptoms reported. denies: Fever, Recent illness EENT: No symptoms reported Cardiovascular: No symptoms reported Respiratory: No symptoms reported. denies: Cough Gastrointestinal: No symptoms reported. denies: Abdominal pain, Vomiting Genitourinary: No symptoms reported. denies: Dysuria Male Genitourinary: No symptoms reported Musculoskeletal: Back pain, Joint pain - Left hip Skin: No symptoms reported Hematologic/Lymphatic: No symptoms reported Neurological/Psychological: No symptoms reported Physical Exam - Vital signs Vitals: Temp Pulse Resp BP Pulse Ox 98.7 F 91 18 118/50 L 97 12/28/19 07:06 12/28/19 07:06 12/28/19 07:06 12/28/19 07:06 12/28/19 07:06 - General General appearance: Appears well, Alert In distress: None - HEENT Head: Normocephalic, Atraumatic Eyes: Normal Conjunctiva: Normal Nasal: Normal Mouth/Lips: Normal Mucous membranes: Normal Neck: Normal, Supple. No: Lymphadenopathy - Respiratory Respiratory status: No respiratory distress Chest status: Nontender Breath sounds: Normal. No: Rales, Rhonchi, Stridor, Wheezing Chest palpation: Normal - Cardiovascular Rhythm: Regular Heart sounds: S1 appreciated, S2 appreciated Murmur: No - Abdominal Inspection: Normal Distension: No distension Bowel sounds: Normal Tenderness: Nontender Organomegaly: No organomegaly - Back Back: CVA tenderness - left - Extremities General upper extremity: Normal inspection, Normal ROM General lower extremity: Normal inspection, Tender - left hip, Normal ROM Hip: Tender - left lateral hip tenderness, Pain with ROM. No: Abrasion, Deformity, Dislocation, Ecchymosis, Instability Knee: Normal, Nontender - Neurological Neuro grossly intact: Yes Cognition: Normal [place] Coma Scale Eye Opening: Spontaneous [place] Coma Scale Verbal: Oriented [place] Coma Scale Motor: Obeys Commands [place] Coma Scale Total: 15 - Psychological Associated symptoms: Normal affect, Normal mood - Skin Skin Temperature: Warm Skin Moisture: Dry Skin Color: Normal Course - Re-evaluation Re-evalutation: 12/28/19 11:07 Patient reports pain symptoms are managed at this time. Will give patient prescription for narcotic pain medication and encourage outpatient follow-up with his oncologist for further management of his pain symptoms. Patient verbalized understanding and is agreeable with discharge plan of care. - Vital Signs Vital signs: Temp Pulse Resp BP Pulse Ox 98.7 F 91 21 H 114/59 L 97 12/28/19 11:57 12/28/19 07:06 12/28/19 11:01 12/28/19 11:01 12/28/19 11:01 - Laboratory Result Diagrams: 12/28/19 08:50 12/28/19 08:50 Laboratory results interpreted by me: 12/28/19 12/28/19 08:50 08:50 RBC 3.11 L Hgb 10.1 L Hct 27.9 L MCHC 36.2 H RDW 14.1 H Lymph % (Auto) 8.3 L Seg Neutrophils % 79.9 H Sodium 131.7 L BUN 23 H Est GFR (MDRD) Non-Af 58 L Glucose 118 H Labs- All tests 24 hr 12/28/19 12/28/19 12/28/19 08:50 08:50 10:10 WBC 7.3 RBC 3.11 L Hgb 10.1 L Hct 27.9 L MCV 90 MCH 32.4 MCHC 36.2 H RDW 14.1 H Plt Count 186 Lymph % (Auto) 8.3 L [place] % (Auto) 10.1 Eos % (Auto) 1.3 Baso % (Auto) 0.4 Absolute Neuts (auto) 5.8 Absolute Lymphs (auto) 0.6 Absolute Monos (auto) 0.7 Absolute Eos (auto) 0.1 Absolute Basos (auto) 0.0 Seg Neutrophils % 79.9 H Sodium 131.7 L Potassium 4.5 Chloride 100 Carbon Dioxide 27 Anion Gap 5 BUN 23 H Creatinine 1.20 Est GFR ( Amer) > 60 Est GFR (MDRD) Non-Af 58 L Glucose 118 H Calcium 8.8 Urine Color YELLOW Urine Appearance CLEAR Urine pH 5.0 Ur Specific [place] 1.010 Urine Protein NEGATIVE Urine Glucose (UA) NEGATIVE Urine Ketones NEGATIVE Urine Blood NEGATIVE Urine Nitrite NEGATIVE Urine Bilirubin NEGATIVE Urine Urobilinogen NEGATIVE Ur Leukocyte Esterase NEGATIVE Urine WBC (Auto) 3 Urine RBC (Auto) 0 Squamous Epi Cells Auto <1 Urine Mucus (Auto) RARE Urine Ascorbic Acid NEGATIVE - Diagnostic Test Radiology reviewed: Image reviewed, Reports reviewed Discharge - Discharge Clinical Impression: Left hip pain Low back pain Qualifiers: Chronicity: chronic Back pain laterality: left Sciatica presence: unspecified whether sciatica present Qualified Code(s): M54.5 - Low back pain Condition: Stable Disposition: HOME, SELF-CARE Instructions: Low Back Pain ([facility]), Oral Narcotic Medication ([facility]) Additional Instructions: Return immediately for any new or worsening symptoms Followup with your primary care provider, call tomorrow to make a followup ap pointment Take the hydrocodone or the tramadol, do not take both medications together. Prescriptions: Lidocaine [Lidoderm 5% (700 mg) Transdermal Patch] 1 patch TP DAILY PRN #10 adh..patch PRN Reason: Hydrocodone/Acetaminophen [[place] 5-325 mg Tablet] 1 tab PO Q6 PRN #15 tablet PRN Reason: Referrals: MIKAELA ARRIOLA MD [Primary Care Provider] - Follow up tomorrow FREDERICK RYAN MD [ACTIVE STAFF] - Follow up tomorrow
[2019-12-28 08:59] LABS: ABSOLUTE EOSINOPHILS # (AUTO) 0.1 10^3/uL (0.0-0.6); ABSOLUTE LYMPHOCYTES (AUTO) 0.6 10^3/uL (0.5-4.7); ABSOLUTE MONOCYTES (AUTO) 0.7 10^3/uL (0.1-1.4); ABSOLUTE NEUT (AUTO) 5.8 10^3/uL (1.7-8.2); BASOPHILS % (AUTO) 0.4 % (0-2); EOSINOPHILS % (AUTO) 1.3 % (0-6); HEMATOCRIT 27.9 % (37.9-51.0); HEMOGLOBIN 10.1 g/dL (13.5-17.0); LYMPHOCYTES % (AUTO) 8.3 % (13-45); MEAN CORPUSCULAR HEMOGLOBIN 32.4 pg (27.0-33.4); MEAN CORPUSCULAR HGB CONC 36.2 g/dL (32.0-36.0); MEAN CORPUSCULAR VOLUME 90 fl (80-97); MONOCYTES % (AUTO) 10.1 % (3-13); PLATELET COUNT 186 10^3/uL (150-450); RED BLOOD COUNT 3.11 10^6/uL (4.35-5.55); RED CELL DISTRIBUTION WIDTH 14.1 % (11.5-14.0); SEGMENTED NEUTROPHILS % (AUTO) 79.9 % (42-78); TOTAL CELLS COUNTED % (AUTO) 100 %; WHITE BLOOD COUNT 7.3 10^3/uL (4.0-10.5)
[2019-12-28 09:23] LABS: ANION GAP 5 (5-19); BLOOD UREA NITROGEN 23 mg/dL (7-20); CALCIUM 8.8 mg/dL (8.4-10.2); CARBON DIOXIDE 27 mmol/L (22-30); CHLORIDE 100 mmol/L (98-107); GLUCOSE 118 mg/dL (75-110); POTASSIUM 4.5 mmol/L (3.6-5.0)
[2019-12-28 10:35] LABS: APPEARANCE,URINE CLEAR; BILIRUBIN,URINE NEGATIVE (NEGATIVE); COLOR,URINE YELLOW; GLUCOSE, URINE NEGATIVE (NEGATIVE); KETONES,URINE NEGATIVE (NEGATIVE); LEUKOCYTE ESTERASE,URINE NEGATIVE (NEGATIVE); NITRITE,URINE NEGATIVE (NEGATIVE); PROTEIN,URINE NEGATIVE (NEGATIVE); UROBILINOGEN,URINE NEGATIVE mg/dL (<2.0)
[2019-12-28] MEDS ORDERED: FENTANYL CITRATE INJ/PF 100 MCG/2 ML AMPUL IV ONE (11:11)
[2019-12-28] MEDS ORDERED: LIDOCAINE 5% (700 MG) TRANSDERMAL ADH..PATCH TP ONE (11:12)
[2019-12-28 11:37] VITALS: BP 114/59
== END 2019-12-28 11:45 | disposition home or self-care (01) ==
LOC: ER 06:51
DX: M25.552 Pain in left hip (principal); M54.5 Low back pain; E78.00 Pure hypercholesterolemia, unspecified; I10 Essential (primary) hypertension; Z88.0 Allergy status to penicillin; Z88.6 Allergy status to analgesic agent; Z95.1 Presence of aortocoronary bypass graft; I25.2 Old myocardial infarction
CPT/HCPCS: 99284; 96374; 36415; 85025; 80048; 81001; 73502; J3010; A9270